=== PATIENT | female | born 1950 | race Caucasian/White ===

== ENCOUNTER 2017-10-23 00:43 | Emergency (ER) | payer MEDICAID, MEDICARE ==
--- NOTE | 2017-10-23 00:49 | EDM.PDOC ---
ED HPI GENERAL MEDICAL PROBLEM - General Chief Complaint: Skin Complaint Stated Complaint: RASH Time Seen by Provider: 10/23/17 00:45 - History of Present Illness INITIAL COMMENTS - FREE TEXT/NARRATIVE: HISTORY AND PHYSICAL: History of present illness: Patient's a 67-year-old female presents with a rash she states is been worse over the last several days it is somewhat pruritic she denies any tongue or lip swelling shortness of breath or other concern Review of systems: As per history of present illness and below otherwise all systems reviewed and negative. Past medical history: As per history of present illness and as reviewed below otherwise noncontributory. Surgical history: As per history of present illness and as reviewed below otherwise noncontributory. Social history: No reported history of drug or alcohol abuse. Family history: As per history of present illness and as reviewed below otherwise noncontributory. Physical exam: HEENT: Atraumatic, normocephalic, pupils reactive, negative for conjunctival pallor or scleral icterus, mucous membranes moist, throat clear, neck supple, nontender, trachea midline. Lungs: Clear to auscultation, breath sounds equal bilaterally, chest nontender. Heart: S1S2, regular, negative for clicks, rubs, or JVD. Abdomen: Soft, nondistended, nontender. Negative for masses or hepatosplenomegaly. Negative for costovertebral tenderness. Pelvis: Stable nontender. Genitourinary: Deferred. Rectal: Deferred. Extremities: Atraumatic, negative for cords or calf pain. Neurovascular unremarkable. Neuro: Awake, alert, oriented. Cranial nerves II through XII unremarkable. Cerebellum unremarkable. Motor and sensory unremarkable throughout. Exam nonfocal. Skin: Patient has a somewhat diffuse but sparse maculopapular rash is no vesicular lesions does jen no petechiae and is nontoxic in appearance Diagnostics: None Therapeutics: None Impression: #1 rash etiology to be determined Definitive disposition and diagnosis as appropriate pending reevaluation and review of above. - Related Data Allergies Allergy/AdvReac Type Severity Reaction Status Date / Time Sulfa (Sulfonamide Allergy Hives Verified 07/29/16 11:20 Antibiotics) Home Meds: Home Meds Ascorbic Acid [Vitamin C] 1 tab PO DAILY 07/29/16 [History] Multivitamin [Multivitamins] 1 tab PO DAILY 07/29/16 [History] Aspirin 81 mg PO BEDTIME #30 tab.chew 09/07/16 [Rx] Benzonatate [Tessalon Perles] 100 mg PO TID PRN #30 cap 09/07/16 [Rx] Magnesium Oxide 400 mg PO BID #30 tablet 09/07/16 [Rx] Naproxen [Naprosyn] 500 mg PO Q12HR PRN #30 tablet 09/07/16 [Rx] Past Medical History HEENT History: Reports: Allergic Rhinitis, Cataract Other HEENT History: wears glasses, has top denture and bottom partial Cardiovascular History: Reports: None Respiratory History: Reports: None Gastrointestinal History: Reports: None, Hepatitis Other Gastrointestinal History: hx hepatitis C Neurological History: Reports: None Psychiatric History: Reports: Anxiety, Depression Endocrine/Metabolic History: Reports: None Hematologic History: Reports: Blood Transfusion(s) Immunologic History: Reports: None Oncologic (Cancer) History: Reports: None - Infectious Disease History Infectious Disease History: Reports: Hepatitis C - Past Surgical History HEENT Surgical History: Reports: Adenoidectomy, Naso-Sinus Surgery, Tonsillectomy Male Surgical History: Reports: Other (See Below) Musculoskeletal Surgical History: Reports: Arthroscopic Knee, Shoulder Surgery Social & Family History - Family History Family Medical History: Noncontributory - Tobacco Use Smoking Status *Q: Current Every Day Smoker Years of Tobacco use: 45 Packs/Tins Daily: 2 - Caffeine Use Caffeine Use: Reports: Tea - Alcohol Use Days Per Week of Alcohol Use: 1 Number of Drinks Per Day: 1 Total Drinks Per Week: 1 - Recreational Drug Use Recreational Drug Use: No Drug Use in Last 12 Months: No ED ROS GENERAL - Review of Systems Review Of Systems: ROS reveals no pertinent complaints other than HPI. ED EXAM, SKIN/RASH Exam: See Below (See dictation) Departure - Departure Time of Disposition: 00:48 Disposition: Home, Self-Care 01 Condition: Good Clinical Impression: Rash and nonspecific skin eruption - Discharge Information Additional Instructions: The following information is given to patients seen in the emergency department who are being discharged to home. This information is to outline your options for follow-up care. We provide all patients seen in our emergency department with a follow-up referral. The need for follow-up, as well as the timing and circumstances, are variable depending upon the specifics of your emergency department visit. If you don't have a primary care physician on staff, we will provide you with a referral. We always advise you to contact your personal physician following an emergency department visit to inform them of the circumstance of the visit and for follow-up with them and/or the need for any referrals to a consulting specialist. The emergency department will also refer you to a specialist when appropriate. This referral assures that you have the opportunity for followup care with a specialist. All of these measure are taken in an effort to provide you with optimal care, which includes your followup. Under all circumstances we always encourage you to contact your private physician who remains a resource for coordinating your care. When calling for followup care, please make the office aware that this follow-up is from your recent emergency room visit. If for any reason you are refused follow-up, please contact the [facility] emergency department at and asked to speak to the emergency department charge nurse. Benadryl Medrol as prescribed follow-up primary medical doctor 1-2 days return as needed as discussed
[2017-10-23 00:57] VITALS: BP 146/86
== END 2017-10-23 01:04 | disposition home or self-care (01) ==
LOC: MW.ED 00:43
DX: R21 Rash and other nonspecific skin eruption (principal); F17.210 Nicotine dependence, cigarettes, uncomplicated; Z79.82 Long term (current) use of aspirin; Z79.899 Other long term (current) drug therapy; Z88.2 Allergy status to sulfonamides
CPT/HCPCS: 99282

== ENCOUNTER 2019-03-11 21:20 | Observation (INO) | payer MEDICARE, MEDICAID ==
[2019-03-11] MEDS: Sodium Chloride 0.9% 1,000 ML IV SCH (21:35)
[2019-03-11] MEDS ORDERED: Sodium Chloride 0.9% 2.5 ML Syringe FLUSH PRN (21:35)
[2019-03-11] MEDS ORDERED: Sodium Chloride 0.9% 10 ML Syringe FLUSH PRN (21:35)
[2019-03-11] MEDS ORDERED: Diltiazem 25 MG/5 ML SDV IVPUSH ONE ×2 (21:36→22:05)
--- NOTE | 2019-03-11 21:40 | EDM.PDOC ---
ED HPI GENERAL MEDICAL PROBLEM - General Chief Complaint: Cardiovascular Problem Stated Complaint: RACING HEART, DIZZY, SHORT OF BREATH Time Seen by Provider: 03/11/19 21:26 - History of Present Illness INITIAL COMMENTS - FREE TEXT/NARRATIVE: HISTORY AND PHYSICAL: History of present illness: The patient is a 68-year-old female who follows with Dr. Albrecht and our mathematical engineer Dr. Matamoros for a history of A. fib and is on Coumadin and diltiazem and presents with feeling like her heart was going faster than usual on and off yesterday and then today it has been going very fast since 12 noon. She says she has had dizziness and lightheadedness but she is not passing out or blacking out she has no chest pain shortness of breath nausea vomiting or abdominal pain. The patient says that on Thursday she didn't feel well and had vomiting and did not eat very much and since that time she has had not much of an appetite but has been eating small meals. She said that all day today she is mostly been drinking ice tea. She came in because she felt like her heart rate should be evaluated and because she felt lightheaded and dizzy. She has no neck or back pain no headache and no extremity complaints nor any weakness numbness or tingling to her extremities. She is concerned that her A. fib rate is elevated. The patient said that with the episodes yesterday and today's episode she was very sweaty. She currently is not sweaty and says she has no symptoms of dizziness or lightheaded while laying in bed and it is worse when she is up walking around. She does feel like her heart is going fast but it is not well Review of systems: As per history of present illness and below otherwise all systems reviewed and negative. Past medical history: As per history of present illness and as reviewed below otherwise noncontributory. Surgical history: As per history of present illness and as reviewed below otherwise noncontributory. Social history: No reported history of drug or alcohol abuse. Family history: As per history of present illness and as reviewed below otherwise noncontributory. Physical exam: General: Well-developed well-nourished thin female who is nontoxic and speaking clearly in the ED. She is in no distress and vital signs are noted by me HEENT: Atraumatic, normocephalic, pupils reactive, negative for conjunctival pallor or scleral icterus, mucous membranes moist, throat clear, neck supple, nontender, trachea midline. Lungs: Clear to auscultation, breath sounds equal bilaterally, chest nontender. Heart: S1S2, very tachycardic rate of my evaluation and irregularity noted and no overt murmur can be appreciated at this time Abdomen: Soft, nondistended, nontender. Negative for masses or hepatosplenomegaly. NABS Pelvis: Stable nontender. Genitourinary: Deferred. Rectal: Deferred. Extremities: Atraumatic, negative for cords or calf pain. Neurovascular unremarkable. No pedal edema or leg asymmetry Neuro: Awake, alert, oriented. Cranial nerves II through XII unremarkable. Cerebellum unremarkable. Motor and sensory unremarkable throughout. Exam nonfocal. Skin: Turgor is normal and there is no diaphoresis Diagnostics: EKG 2 CBC CMP INR troponin UA with reflex chest x-ray Therapeutics: IV O2 monitor IV fluids Cardizem IV push Lopressor, Cardizem drip After Lopressor the patient's heart rate did bounce down to 140s and the Cardizem drip was started. On my personal evaluation the rate is varying from 90s to 140s and the patient is awake alert and interactive here without any symptomatology. 2258: Case was discussed with Dr. Vincent who is aware of testing results and the INR of 14. He is also aware of the variable response to the Cardizem drip and agrees to admission and would like an observation in the ICU. I discussed this with the patient and she is agreeable Impression: A. fib with RVR, Coumadin toxicity Definitive disposition and diagnosis as appropriate pending reevaluation and review of above. - Related Data Allergies Allergy/AdvReac Type Severity Reaction Status Date / Time Sulfa (Sulfonamide Allergy Hives Verified 03/11/19 21:23 Antibiotics) Home Meds: Home Meds Ascorbic Acid [Vitamin C] 1 tab PO DAILY 07/29/16 [History] Multivitamin [Multivitamins] 1 tab PO DAILY 07/29/16 [History] Benzonatate [Tessalon Perles] 100 mg PO TID PRN #30 cap 09/07/16 [Rx] Magnesium Oxide 400 mg PO BID #30 tablet 09/07/16 [Rx] Diltiazem HCl [Diltiazem 24Hr ER] 120 mg PO DAILY 03/11/19 [History] Glycopyrrolate/Formoterol Fum [Bevespi Aerosphere Inhaler] 10.7 gm INH DAILY [History] Warfarin [Coumadin] 5 mg PO DAILY 03/11/19 [History] Past Medical History HEENT History: Reports: Allergic Rhinitis, Cataract Other HEENT History: wears glasses, has top denture and bottom partial Cardiovascular History: Reports: Afib Respiratory History: Reports: None Gastrointestinal History: Reports: None, Hepatitis Other Gastrointestinal History: hx hepatitis C Genitourinary History: Reports: None Musculoskeletal History: Reports: None Neurological History: Reports: None Psychiatric History: Reports: Anxiety, Depression Endocrine/Metabolic History: Reports: None Hematologic History: Reports: Blood Transfusion(s) Immunologic History: Reports: None Oncologic (Cancer) History: Reports: None Dermatologic History: Reports: None - Infectious Disease History Infectious Disease History: Reports: Hepatitis C - Past Surgical History Head Surgeries/Procedures: Reports: None HEENT Surgical History: Reports: Adenoidectomy, Naso-Sinus Surgery, Tonsillectomy Other Female Surgeries/Procedures: states she had her "ureters stretched" as a child Musculoskeletal Surgical History: Reports: Arthroscopic Knee, Shoulder Surgery Social & Family History - Family History Family Medical History: Noncontributory - Tobacco Use Smoking Status *Q: Current Every Day Smoker Years of Tobacco use: 30 Packs/Tins Daily: 1 - Caffeine Use Caffeine Use: Reports: Tea - Recreational Drug Use Recreational Drug Use: Yes Recreational Drug Type: Reports: Marijuana/Hashish Recreational Drug Use Frequency: Weekly ED ROS GENERAL - Review of Systems Review Of Systems: ROS reveals no pertinent complaints other than HPI. ED EXAM, GENERAL - Physical Exam Exam: See Below (See dictation) Course - Vital Signs Last Recorded V/S: Last Vital Signs Temp 36.4 C 03/11/19 22:33 Pulse 162 H 03/11/19 22:47 Resp 20 03/11/19 21:28 BP 90/60 03/11/19 22:47 Pulse Ox 97 03/11/19 22:47 - Orders/Labs/Meds Orders: Active Orders 24 hr Category Date Time Status Patient Status [ADT] Stat ADT 03/11/19 22:59 Ordered Blood Glucose Check, Bedside [RC] ONETIME Care 03/11/19 21:34 Active Cardiac Monitoring [RC] . DIRECTED Care 03/11/19 21:34 Active EKG Documentation Completion [RC] STAT Care 03/11/19 21:34 Active Oxygen Therapy, ED [RC] ASDIRECTED Care 03/11/19 21:34 Active Pulse Oximetry [RC] ASDIRECTED Care 03/11/19 21:34 Active UA RFX NATHANIEL AND CULT IF INDIC [URIN] Stat Lab 03/11/19 21:35 Ordered Diltiazem [Cardizem] 100 mg Med 03/11/19 22:30 Active Sodium Chloride 0.9% [Normal Saline] 100 ml IV CONTINUOUS Sodium Chloride 0.9% [Normal Saline] 1,000 ml Med 03/11/19 21:45 Active IV ASDIRECTED Sodium Chloride 0.9% [Saline Flush] Med 03/11/19 21:35 Active 10 ml FLUSH ASDIRECTED PRN Sodium Chloride 0.9% [Saline Flush] Med 03/11/19 21:35 Active 2.5 ml FLUSH ASDIRECTED PRN Saline Lock Insert [OM.PC] Stat Oth 03/11/19 21:34 Ordered Medication Orders Sodium Chloride (Normal Saline) 1,000 mls @ 75 mls/hr IV ASDIRECTED JASON Last Infusion: 03/11/19 22:47 Dose: 200 mls/hr Infusion: 03/11/19 21:59 Dose: 75 mls/hr Admin: 03/11/19 21:35 Dose: 500 mls/hr Diltiazem HCl 100 mg/ Sodium (Chloride) 100 mls @ 5 mls/hr IV CONTINUOUS JASON Last Admin: 03/11/19 22:32 Dose: 5 mls/hr Sodium Chloride (Saline Flush) 10 ml FLUSH ASDIRECTED PRN PRN Reason: Keep Vein Open Last Admin: 03/11/19 21:55 Dose: 10 ml Sodium Chloride (Saline Flush) 2.5 ml FLUSH ASDIRECTED PRN PRN Reason: Keep Vein Open Last Admin: 03/11/19 21:55 Dose: 2.5 ml Labs: Laboratory Tests 03/11/19 03/11/19 03/11/19 Range/Units 21:35 21:35 21:39 WBC 10.70 (4.0-11.0) K/uL RBC 4.76 (4.30-5.90) M/uL Hgb 14.3 (12.0-16.0) g/dL Hct 42.0 (36.0-46.0) % MCV 88.2 (80.0-98.0) fL MCH 30.0 (27.0-32.0) pg MCHC 34.0 (31.0-37.0) g/dL RDW Std Deviation 49.6 (28.0-62.0) fl RDW Coeff of Nilay 16 H (11.0-15.0) % Plt Count 183 (150-400) K/uL MPV 9.90 (7.40-12.00) fL Neut % (Auto) 61.2 (48.0-80.0) % Lymph % (Auto) 28.4 (16.0-40.0) % Andrew % (Auto) 7.9 (0.0-15.0) % Eos % (Auto) 2.0 (0.0-7.0) % Baso % (Auto) 0.5 (0.0-1.5) % Neut # (Auto) 6.6 H (1.4-5.7) K/uL Lymph # (Auto) 3.0 H (0.6-2.4) K/uL Andrew # (Auto) 0.8 (0.0-0.8) K/uL Eos # (Auto) 0.2 (0.0-0.7) K/uL Baso # (Auto) 0.1 (0.0-0.1) K/uL Nucleated RBC % 0.0 /100WBC Nucleated RBCs # 0 K/uL INR Sodium 133 L (136-145) mmol/L Potassium 3.0 L (3.5-5.1) mmol/L Chloride 93 L (98-107) mmol/L Carbon Dioxide 29.3 (21.0-32.0) mmol/L BUN 19 H (7.0-18.0) mg/dL Creatinine 1.2 H (0.6-1.0) mg/dL Est Cr Clr Drug Dosing TNP Estimated GFR (MDRD) 44.9 ml/min Glucose 124 H (74-106) mg/dL POC Glucose 135 H (60-110) mg/dL Calcium 10.0 (8.5-10.1) mg/dL Total Bilirubin 0.5 (0.2-1.0) mg/dL AST 57 H (15-37) IU/L ALT 37 (14-63) IU/L Alkaline Phosphatase 89 (46-116) U/L Troponin I < 0.050 (0.000-0.056) ng/mL Total Protein 7.2 (6.4-8.2) g/dL Albumin 3.5 (3.4-5.0) g/dL Globulin 3.7 (2.6-4.0) g/dL Albumin/Globulin Ratio 0.9 (0.9-1.6) 03/11/19 Range/Units 21:55 WBC (4.0-11.0) K/uL RBC (4.30-5.90) M/uL Hgb (12.0-16.0) g/dL Hct (36.0-46.0) % MCV (80.0-98.0) fL MCH (27.0-32.0) pg MCHC (31.0-37.0) g/dL RDW Std Deviation (28.0-62.0) fl RDW Coeff of Nilay (11.0-15.0) % Plt Count (150-400) K/uL MPV (7.40-12.00) fL Neut % (Auto) (48.0-80.0) % Lymph % (Auto) (16.0-40.0) % Andrew % (Auto) (0.0-15.0) % Eos % (Auto) (0.0-7.0) % Baso % (Auto) (0.0-1.5) % Neut # (Auto) (1.4-5.7) K/uL Lymph # (Auto) (0.6-2.4) K/uL Andrew # (Auto) (0.0-0.8) K/uL Eos # (Auto) (0.0-0.7) K/uL Baso # (Auto) (0.0-0.1) K/uL Nucleated RBC % /100WBC Nucleated RBCs # K/uL INR 14.13 H* Sodium (136-145) mmol/L Potassium (3.5-5.1) mmol/L Chloride (98-107) mmol/L Carbon Dioxide (21.0-32.0) mmol/L BUN (7.0-18.0) mg/dL Creatinine (0.6-1.0) mg/dL Est Cr Clr Drug Dosing Estimated GFR (MDRD) ml/min Glucose (74-106) mg/dL POC Glucose (60-110) mg/dL Calcium (8.5-10.1) mg/dL Total Bilirubin (0.2-1.0) mg/dL AST (15-37) IU/L ALT (14-63) IU/L Alkaline Phosphatase (46-116) U/L Troponin I (0.000-0.056) ng/mL Total Protein (6.4-8.2) g/dL Albumin (3.4-5.0) g/dL Globulin (2.6-4.0) g/dL Albumin/Globulin Ratio (0.9-1.6) Meds: Medications Generic Name Dose Route Start Last Admin Trade Name Freq PRN Reason Stop Dose Admin Sodium Chloride 1,000 mls @ 75 mls/hr 03/11/19 21:45 03/11/19 22:47 Normal Saline IV 200 mls/hr ASDIRECTED JASON Infusion Diltiazem HCl 100 mg/ Sodium 100 mls @ 5 mls/hr 03/11/19 22:30 03/11/19 22:32 Chloride IV 5 mls/hr CONTINUOUS JASON Administration Sodium Chloride 10 ml 03/11/19 21:35 03/11/19 21:55 Saline Flush FLUSH 10 ml ASDIRECTED PRN Administration Keep Vein Open Sodium Chloride 2.5 ml 03/11/19 21:35 03/11/19 21:55 Saline Flush FLUSH 2.5 ml ASDIRECTED PRN Administration Keep Vein Open Discontinued Medications Generic Name Dose Route Start Last Admin Trade Name Freq PRN Reason Stop Dose Admin Diltiazem HCl 10 mg 03/11/19 21:36 03/11/19 21:53 Diltiazem IVPUSH 03/11/19 21:37 10 mg ONETIME ONE Administration Diltiazem HCl 10 mg 03/11/19 22:05 03/11/19 22:06 Diltiazem IVPUSH 03/11/19 22:06 10 mg ONETIME ONE Administration Diltiazem HCl 125 mg/ Sodium 125 mls @ 5 mls/hr 03/11/19 22:15 Chloride IV NOW JASON Protocol Sodium Chloride Confirm 03/11/19 22:25 03/11/19 22:32 Normal Saline Administered 03/11/19 22:26 Not Given Dose 100 mls @ as directed .ROUTE .STK-MED ONE Metoprolol Tartrate 5 mg 03/11/19 22:18 03/11/19 22:22 Lopressor IVPUSH 03/11/19 22:19 5 mg ONETIME ONE Administration Potassium Chloride 40 meq 03/11/19 22:15 03/11/19 22:22 Klor-Con M20 PO 03/11/19 22:16 40 meq ONETIME ONE Administration Departure - Departure Time of Disposition: 23:01 Disposition: Refer to Observation Reason for Transfer *Q: Primary PCI Indicated Condition: Good Clinical Impression: Atrial fibrillation with RVR Coumadin toxicity Qualifiers: Encounter type: initial encounter Injury intent: accidental or unintentional Qualified Code(s): T45.511A - Poisoning by anticoagulants, accidental ( unintentional), initial encounter Referrals: PCP,Unknown [Primary Care Provider] - Forms: ED Department Discharge - My Orders Last 24 Hours: My Active Orders 03/11/19 21:34 Blood Glucose Check, Bedside [RC] ONETIME Cardiac Monitoring [RC] . DIRECTED EKG Documentation Completion [RC] STAT Oxygen Therapy, ED [RC] ASDIRECTED Pulse Oximetry [RC] ASDIRECTED Saline Lock Insert [OM.PC] Stat 03/11/19 21:35 UA RFX NATHANIEL AND CULT IF INDIC [URIN] Stat Sodium Chloride 0.9% [Saline Flush] 10 ml FLUSH ASDIRECTED PRN Sodium Chloride 0.9% [Saline Flush] 2.5 ml FLUSH ASDIRECTED PRN 03/11/19 21:45 Sodium Chloride 0.9% [Normal Saline] 1,000 ml IV ASDIRECTED 03/11/19 22:30 Diltiazem [Cardizem] 100 mg Sodium Chloride 0.9% [Normal Saline] 100 ml IV CONTINUOUS 03/11/19 22:59 Patient Status [ADT] Stat - Assessment/Plan Last 24 Hours: My Active Orders 03/11/19 21:34 Blood Glucose Check, Bedside [RC] ONETIME Cardiac Monitoring [RC] . DIRECTED EKG Documentation Completion [RC] STAT Oxygen Therapy, ED [RC] ASDIRECTED Pulse Oximetry [RC] ASDIRECTED Saline Lock Insert [OM.PC] Stat 03/11/19 21:35 UA RFX NATHANIEL AND CULT IF INDIC [URIN] Stat Sodium Chloride 0.9% [Saline Flush] 10 ml FLUSH ASDIRECTED PRN Sodium Chloride 0.9% [Saline Flush] 2.5 ml FLUSH ASDIRECTED PRN 03/11/19 21:45 Sodium Chloride 0.9% [Normal Saline] 1,000 ml IV ASDIRECTED 03/11/19 22:30 Diltiazem [Cardizem] 100 mg Sodium Chloride 0.9% [Normal Saline] 100 ml IV CONTINUOUS 03/11/19 22:59 Patient Status [ADT] Stat
--- NOTE | 2019-03-11 22:02 | CR ---
INDICATION: pain, SOB, heart racing TECHNIQUE: Chest 1 view. COMPARISON: None. FINDINGS: Cardiovascular and mediastinum: Heart size and vasculature are normal in caliber and appearance. Mediastinum is within normal limits. Lungs and pleural space: Lungs are clear. No sign of infiltrate or mass. No sign of pleural effusion. No pneumothorax. Bones and soft tissues: No significant findings. IMPRESSION: Unremarkable chest. Dictated by: Farhan Bonilla MD @ 03/11/2019 22:00:03 (Electronically Signed)
[2019-03-11 22:06] LABS: CHLORIDE,CL 93 mmol/L (98-107); SODIUM,NA 133 mmol/L (136-145)
[2019-03-11] MEDS ORDERED: Potassium Chloride 20 MEQ Tab.ER PO ONE (22:15)
[2019-03-11] MEDS ORDERED: Diltiazem 125 MG in Sodium Chloride 0.9% 100 ML IV SCH (22:15)
[2019-03-11] MEDS ORDERED: Metoprolol Tartrate 5 MG/5 ML SDV IVPUSH ONE (22:18)
[2019-03-11] MEDS ORDERED: Sodium Chloride 0.9% 100 ML ONE (22:25)
[2019-03-11] MEDS ORDERED: Diltiazem 100 MG in Sodium Chloride 0.9% 100 ML IV SCH (22:30)
[2019-03-12] MEDS ORDERED: Magnesium Sulfate/Water 2 GM in Premix Bag 1 BAG IV ONE (00:36)
[2019-03-12] MEDS: Sodium Chloride 0.9% 1,000 ML IV SCH ×3 (00:40→13:24)
--- NOTE | 2019-03-12 01:27 | PCM.HP ---
H&P History of Present Illness - General Date of Service: 03/12/19 Admit Problem/Dx: Admission Diagnosis/Problem Admission Diagnosis/Problem Atrial fibrillation Source of Information: Patient History Limitations: Reports: No Limitations - History of Present Illness Initial Comments - Free Text/Narative: The patient is a 68-year-old lady who had presented to the emergency department this evening secondary to dizziness, weakness and fatigue. The patient says that she felt like her heart rate was going very fast. She took it at home and noticed that her heart rate was 170 bpm. The patient has been on diltiazem and Coumadin for her atrial fibrillation and has been evaluated by cardiology in the past. The patient says that she has had 2 days worth of nausea and vomiting and has not been able to keep most of her medications down. She reports that she also has not been eating regularly. She has described some chest discomfort which does not radiate. Patient also says that she had an episode of diaphoresis. It was noted in the emergency department of the patient's INR was greater than 14. The patient has no other complaints at this time of the dizziness and lightheadedness when she sets up. Onset of Symptoms: Reports: Gradual Duration of Symptoms: Reports: Day(s):, Getting Worse Location: Reports: Chest Quality: Reports: Dull, Pressure Severity: Mild Improves with: Reports: Rest Worsens with: Reports: Movement Associated Symptoms: Reports: Diaphoresis - Related Data Allergies/Adverse Reactions: Allergies Allergy/AdvReac Type Severity Reaction Status Date / Time Sulfa (Sulfonamide Allergy Hives Verified 03/11/19 21:23 Antibiotics) Home Medications: Home Meds Ascorbic Acid [Vitamin C] 1 tab PO DAILY 07/29/16 [History] Multivitamin [Multivitamins] 1 tab PO DAILY 07/29/16 [History] Benzonatate [Tessalon Perles] 100 mg PO TID PRN #30 cap 09/07/16 [Rx] Magnesium Oxide 400 mg PO BID #30 tablet 09/07/16 [Rx] Diltiazem HCl [Diltiazem 24Hr ER] 120 mg PO DAILY 03/11/19 [History] Glycopyrrolate/Formoterol Fum [Bevespi Aerosphere Inhaler] 10.7 gm INH DAILY [History] Warfarin [Coumadin] 5 mg PO DAILY 03/11/19 [History] Past Medical History HEENT History: Reports: Allergic Rhinitis, Cataract Other HEENT History: wears glasses, has top denture and bottom partial Cardiovascular History: Reports: Afib Respiratory History: Reports: None, Other (See Below) 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 Gastrointestinal History: Reports: Hepatitis Other Gastrointestinal History: hx hepatitis C Genitourinary History: Reports: None Musculoskeletal History: Reports: None Neurological History: Reports: None Psychiatric History: Reports: Anxiety, Depression Endocrine/Metabolic History: Reports: None Hematologic History: Reports: Blood Transfusion(s) Immunologic History: Reports: None Oncologic (Cancer) History: Reports: None Dermatologic History: Reports: None - Infectious Disease History Infectious Disease History: Reports: Hepatitis C - Past Surgical History Head Surgeries/Procedures: Reports: None HEENT Surgical History: Reports: Adenoidectomy, Naso-Sinus Surgery, Tonsillectomy Other Female Surgeries/Procedures: states she had her "ureters stretched" as a child Musculoskeletal Surgical History: Reports: Arthroscopic Knee, Shoulder Surgery Social & Family History - Family History Family Medical History: Noncontributory - Tobacco Use Smoking Status *Q: Current Every Day Smoker Years of Tobacco use: 51 Packs/Tins Daily: 1 Used Tobacco, but Quit: No Second Hand Smoke Exposure: Yes - Caffeine Use Caffeine Use: Reports: Soda - Alcohol Use Date of Last Drink: 03/07/19 - Recreational Drug Use Recreational Drug Use: No Recreational Drug Type: Reports: Marijuana/Hashish Recreational Drug Use Frequency: Weekly H&P Review of Systems - Review of Systems: Review Of Systems: See Below General: Reports: Weakness, Diaphoresis HEENT: Reports: No Symptoms Pulmonary: Reports: No Symptoms Cardiovascular: Reports: Palpitations, Lightheadedness, Blood Pressure Problem, Other (Rapid heart rate) Gastrointestinal: Reports: No Symptoms Genitourinary: Reports: No Symptoms Musculoskeletal: Reports: No Symptoms Skin: Reports: No Symptoms Psychiatric: Reports: No Symptoms Neurological: Reports: No Symptoms Hematologic/Lymphatic: Reports: No Symptoms Immunologic: Reports: No Symptoms Exam - Exam Exam: See Below - Vital Signs Vital Signs: Last Vital Signs Temp 36.6 C 03/11/19 23:45 Pulse 89 03/11/19 23:17 Resp 18 03/12/19 01:00 BP 101/53 L 03/12/19 01:00 Pulse Ox 98 03/12/19 01:00 Weight: 61.87 kg - Exam Quality Assessment: No: Supplemental Oxygen General: Alert, Oriented, Cooperative, Mild Distress HEENT: Conjunctiva Clear, EACs Clear, EOMI, Pupils Equal, PERRLA. No: Mucosa Moist & [place] (Dry) Neck: Supple, Trachea Midline Lungs: Clear to Auscultation Cardiovascular: Irregular Rhythm, Tachycardia (134 on monitor) GI/Abdominal Exam: Normal Bowel Sounds, Soft, Non-Tender, No Distention. No: Guarding, Rigid, Rebound Back Exam: Normal Inspection, Full Range of Motion Extremities: Normal Inspection, No Pedal Edema Skin: Warm, Dry, Intact Neurological: Cranial Nerves Intact Neuro Extensive - Mental Status: Alert, Oriented x3 Psychiatric: Alert, Normal Affect, Normal Mood - Patient Data Lab Results Last 24 hrs: Laboratory Results - last 24 hr 03/11/19 03/11/19 03/11/19 Range/Units 21:35 21:35 21:39 WBC 10.70 (4.0-11.0) K/uL RBC 4.76 (4.30-5.90) M/uL Hgb 14.3 (12.0-16.0) g/dL Hct 42.0 (36.0-46.0) % MCV 88.2 (80.0-98.0) fL MCH 30.0 (27.0-32.0) pg MCHC 34.0 (31.0-37.0) g/dL RDW Std Deviation 49.6 (28.0-62.0) fl RDW Coeff of Nilay 16 H (11.0-15.0) % Plt Count 183 (150-400) K/uL MPV 9.90 (7.40-12.00) fL Neut % (Auto) 61.2 (48.0-80.0) % Lymph % (Auto) 28.4 (16.0-40.0) % Holmes % (Auto) 7.9 (0.0-15.0) % Eos % (Auto) 2.0 (0.0-7.0) % Baso % (Auto) 0.5 (0.0-1.5) % Neut # (Auto) 6.6 H (1.4-5.7) K/uL Lymph # (Auto) 3.0 H (0.6-2.4) K/uL Holmes # (Auto) 0.8 (0.0-0.8) K/uL Eos # (Auto) 0.2 (0.0-0.7) K/uL Baso # (Auto) 0.1 (0.0-0.1) K/uL Nucleated RBC % 0.0 /100WBC Nucleated RBCs # 0 K/uL INR Sodium 133 L (136-145) mmol/L Potassium 3.0 L (3.5-5.1) mmol/L Chloride 93 L (98-107) mmol/L Carbon Dioxide 29.3 (21.0-32.0) mmol/L BUN 19 H (7.0-18.0) mg/dL Creatinine 1.2 H (0.6-1.0) mg/dL Est Cr Clr Drug Dosing TNP Estimated GFR (MDRD) 44.9 ml/min Glucose 124 H (74-106) mg/dL POC Glucose 135 H (60-110) mg/dL Calcium 10.0 (8.5-10.1) mg/dL Total Bilirubin 0.5 (0.2-1.0) mg/dL AST 57 H (15-37) IU/L ALT 37 (14-63) IU/L Alkaline Phosphatase 89 (46-116) U/L Troponin I < 0.050 (0.000-0.056) ng/mL Total Protein 7.2 (6.4-8.2) g/dL Albumin 3.5 (3.4-5.0) g/dL Globulin 3.7 (2.6-4.0) g/dL Albumin/Globulin Ratio 0.9 (0.9-1.6) 03/11/19 Range/Units 21:55 WBC (4.0-11.0) K/uL RBC (4.30-5.90) M/uL Hgb (12.0-16.0) g/dL Hct (36.0-46.0) % MCV (80.0-98.0) fL MCH (27.0-32.0) pg MCHC (31.0-37.0) g/dL RDW Std Deviation (28.0-62.0) fl RDW Coeff of Nilay (11.0-15.0) % Plt Count (150-400) K/uL MPV (7.40-12.00) fL Neut % (Auto) (48.0-80.0) % Lymph % (Auto) (16.0-40.0) % Holmes % (Auto) (0.0-15.0) % Eos % (Auto) (0.0-7.0) % Baso % (Auto) (0.0-1.5) % Neut # (Auto) (1.4-5.7) K/uL Lymph # (Auto) (0.6-2.4) K/uL Holmes # (Auto) (0.0-0.8) K/uL Eos # (Auto) (0.0-0.7) K/uL Baso # (Auto) (0.0-0.1) K/uL Nucleated RBC % /100WBC Nucleated RBCs # K/uL INR 14.13 H* Sodium (136-145) mmol/L Potassium (3.5-5.1) mmol/L Chloride (98-107) mmol/L Carbon Dioxide (21.0-32.0) mmol/L BUN (7.0-18.0) mg/dL Creatinine (0.6-1.0) mg/dL Est Cr Clr Drug Dosing Estimated GFR (MDRD) ml/min Glucose (74-106) mg/dL POC Glucose (60-110) mg/dL Calcium (8.5-10.1) mg/dL Total Bilirubin (0.2-1.0) mg/dL AST (15-37) IU/L ALT (14-63) IU/L Alkaline Phosphatase (46-116) U/L Troponin I (0.000-0.056) ng/mL Total Protein (6.4-8.2) g/dL Albumin (3.4-5.0) g/dL Globulin (2.6-4.0) g/dL Albumin/Globulin Ratio (0.9-1.6) Result Diagrams: 03/11/19 21:35 03/11/19 21:35 - Problem List (1) Atrial fibrillation with RVR SNOMED Code(s): 259593044059408 ICD Code: I48.91 - UNSPECIFIED ATRIAL FIBRILLATION Status: Chronic Priority: High Current Visit: Yes Problem Details: With RVR (2) Coumadin toxicity SNOMED Code(s): 06161948 ICD Code: T45.511A - POISONING BY ANTICOAGULANTS, ACCIDENTAL, INIT Status: Acute Priority: High Current Visit: Yes Qualifiers: Encounter type: subsequent encounter Injury intent: accidental or unintentional Qualified Code(s): T45.511D - Poisoning by anticoagulants, accidental (unintentional), subsequent encounter (3) Nausea and vomiting SNOMED Code(s): 24398933 ICD Code: R11.2 - NAUSEA WITH VOMITING, UNSPECIFIED Status: Acute Priority: High Current Visit: Yes Qualifiers: Vomiting type: unspecified Vomiting Intractability: non-intractable Qualified Code(s): R11.2 - Nausea with vomiting, unspecified (4) Dehydration SNOMED Code(s): 10243267 ICD Code: E86.0 - DEHYDRATION Status: Acute Priority: High Current Visit: Yes Problem List Initiated/Reviewed/Updated: Yes Orders Last 24hrs: Active Orders 24 hr Category Date Time Status Patient Status [ADT] Stat ADT 03/11/19 22:59 Active Pulse Oximetry [RC] ASDIRECTED Care 03/11/19 21:34 Active BASIC METABOLIC PANEL,BMP [CHEM] Routine Lab 03/12/19 05:00 Ordered CBC W/O DIFF,HEMOGRAM [HEME] Routine Lab 03/12/19 05:00 Ordered INR,PT,PROTHROMBIN TIME [COAG] Routine Lab 03/12/19 05:00 Ordered UA RFX NATHANIEL AND CULT IF INDIC [URIN] Stat Lab 03/11/19 21:35 Ordered Diltiazem [Cardizem] 100 mg Med 03/11/19 22:30 Active Sodium Chloride 0.9% [Normal Saline] 100 ml IV CONTINUOUS Magnesium Sulfate/Water [Magnesium Sulfate in Water Med 03/12/19 00:36 Active Premix] 2 gm Premix Bag 1 bag IV ONETIME Sodium Chloride 0.9% [Normal Saline] 1,000 ml Med 03/11/19 21:45 Active IV ASDIRECTED Sodium Chloride 0.9% [Saline Flush] Med 03/11/19 21:35 Active 10 ml FLUSH ASDIRECTED PRN Sodium Chloride 0.9% [Saline Flush] Med 03/11/19 21:35 Active 2.5 ml FLUSH ASDIRECTED PRN Saline Lock Insert [OM.PC] Stat Oth 03/11/19 21:34 Ordered Medication Orders Sodium Chloride (Normal Saline) 1,000 mls @ 75 mls/hr IV ASDIRECTED JASON Last Admin: 03/12/19 00:40 Dose: 75 mls/hr Infusion: 03/12/19 00:40 Dose: 75 mls/hr Infusion: 03/11/19 23:17 Dose: 75 mls/hr Infusion: 03/11/19 22:47 Dose: 200 mls/hr Infusion: 03/11/19 21:59 Dose: 75 mls/hr Admin: 03/11/19 21:35 Dose: 500 mls/hr Diltiazem HCl 100 mg/ Sodium (Chloride) 100 mls @ 5 mls/hr IV CONTINUOUS JASON Last Infusion: 03/12/19 01:04 Dose: 2.5 mls/hr Infusion: 03/12/19 00:32 Dose: 0 mls/hr Admin: 03/11/19 22:32 Dose: 5 mls/hr Magnesium Sulfate 2 gm/ Premix 50 mls @ 50 mls/hr IV ONETIME ONE Stop: 03/12/19 01:35 Last Admin: 03/12/19 01:14 Dose: 50 mls/hr Sodium Chloride (Saline Flush) 10 ml FLUSH ASDIRECTED PRN PRN Reason: Keep Vein Open Last Admin: 03/11/19 21:55 Dose: 10 ml Sodium Chloride (Saline Flush) 2.5 ml FLUSH ASDIRECTED PRN PRN Reason: Keep Vein Open Last Admin: 03/11/19 21:55 Dose: 2.5 ml Assessment/Plan Comment:: The patient is a 68-year-old lady who presented to the emergency department primarily out of concern for dizziness and lightheadedness. She was noted to be in atrial fibrillation with RVR and had been placed in intensive care unit as inpatient secondary to Cardizem drip. She is also being co-managed by eICU. The patient did had some preceding nausea and vomiting which was likely the cause of her inability to maintain her medications and resulting in A. fib with RVR. The patient will be kept on Cardizem drip and her blood pressure will be monitored on telemetry. The patient will also have IV fluids as necessary for her dehydration. Her nausea and vomiting will be controlled with the use of Zofran. Because of the patient's chest pain I've ordered 2 more troponins. I've also ordered follow-up laboratory studies for the morning. The patient's warfarin will also be held as her INR is supratherapeutic and she does not have any urgent need for reversal of her INR at this time. The patient's INR will will be allowed to normalize slowly for now. If she does have evidence of bleeding been the INR will be reversed. She has been kept on a heart healthy diet. SCDs of also been ordered for the patient for DVT prophylaxis although DVT in her case is not likely to occur. She should be appropriate for discharge in 1-2 days.
[2019-03-12] MEDS ORDERED: Bismuth Subsalicylate 262 MG/15 ML Susp 236 ML Bottle PO ONE (02:21)
[2019-03-12] MEDS ORDERED: Lactated Ringers 1,000 ML IV ONE (04:34)
[2019-03-12 04:37] LABS: CHLORIDE,CL 101 mmol/L (98-107); SODIUM,NA 137 mmol/L (136-145)
--- NOTE | 2019-03-12 06:48 | PCM.PN ---
- General Info Date of Service: 03/12/19 Admission Dx/Problem (Free Text): Admission Diagnosis/Problem Admission Diagnosis/Problem Atrial fibrillation Subjective Update: The patient is a 68-year-old lady who was admitted to intensive care unit several hours ago secondary to dizziness, weakness and fatigue. The patient was noted to have atrial fibrillation with RVR. The patient has been on Cardizem drip and her heart rate had various times has been between 170 and 110. Functional Status: Reports: Pain Controlled - Review of Systems General: Reports: Weakness HEENT: Reports: No Symptoms Pulmonary: Reports: No Symptoms Cardiovascular: Reports: Palpitations Gastrointestinal: Reports: Nausea Genitourinary: Reports: No Symptoms Musculoskeletal: Reports: No Symptoms Skin: Reports: No Symptoms Neurological: Reports: No Symptoms Psychiatric: Reports: No Symptoms - Patient Data Vitals - Most Recent: Last Vital Signs Temp 36.1 C 03/12/19 04:00 Pulse 89 03/11/19 23:17 Resp 19 03/12/19 06:00 BP 92/68 03/12/19 06:00 Pulse Ox 96 03/12/19 06:00 Weight - Most Recent: 62.505 kg I&O - Last 24 Hours: Intake & Output 03/11/19 03/11/19 03/12/19 14:59 22:59 06:59 Intake Total 2054 Output Total 450 Balance 1604 Lab Results Last 24 Hours: Laboratory Results - last 24 hr 03/11/19 03/11/19 03/11/19 Range/Units 21:35 21:35 21:39 WBC 10.70 (4.0-11.0) K/uL RBC 4.76 (4.30-5.90) M/uL Hgb 14.3 (12.0-16.0) g/dL Hct 42.0 (36.0-46.0) % MCV 88.2 (80.0-98.0) fL MCH 30.0 (27.0-32.0) pg MCHC 34.0 (31.0-37.0) g/dL RDW Std Deviation 49.6 (28.0-62.0) fl RDW Coeff of Nilay 16 H (11.0-15.0) % Plt Count 183 (150-400) K/uL MPV 9.90 (7.40-12.00) fL Neut % (Auto) 61.2 (48.0-80.0) % Lymph % (Auto) 28.4 (16.0-40.0) % Craig % (Auto) 7.9 (0.0-15.0) % Eos % (Auto) 2.0 (0.0-7.0) % Baso % (Auto) 0.5 (0.0-1.5) % Neut # (Auto) 6.6 H (1.4-5.7) K/uL Lymph # (Auto) 3.0 H (0.6-2.4) K/uL Craig # (Auto) 0.8 (0.0-0.8) K/uL Eos # (Auto) 0.2 (0.0-0.7) K/uL Baso # (Auto) 0.1 (0.0-0.1) K/uL Nucleated RBC % 0.0 /100WBC Nucleated RBCs # 0 K/uL INR Sodium 133 L (136-145) mmol/L Potassium 3.0 L (3.5-5.1) mmol/L Chloride 93 L (98-107) mmol/L Carbon Dioxide 29.3 (21.0-32.0) mmol/L BUN 19 H (7.0-18.0) mg/dL Creatinine 1.2 H (0.6-1.0) mg/dL Est Cr Clr Drug Dosing TNP Estimated GFR (MDRD) 44.9 ml/min Glucose 124 H (74-106) mg/dL POC Glucose 135 H (60-110) mg/dL Calcium 10.0 (8.5-10.1) mg/dL Magnesium (1.8-2.4) mg/dL Total Bilirubin 0.5 (0.2-1.0) mg/dL AST 57 H (15-37) IU/L ALT 37 (14-63) IU/L Alkaline Phosphatase 89 (46-116) U/L Troponin I < 0.050 (0.000-0.056) ng/mL Total Protein 7.2 (6.4-8.2) g/dL Albumin 3.5 (3.4-5.0) g/dL Globulin 3.7 (2.6-4.0) g/dL Albumin/Globulin Ratio 0.9 (0.9-1.6) Urine Color Urine Appearance Urine pH (5.0-8.0) Ur Specific [place] (1.001-1.035) Urine Protein (NEGATIVE) mg/dL Urine Glucose (UA) (NEGATIVE) mg/dL Urine Ketones (NEGATIVE) mg/dL Urine Occult Blood (NEGATIVE) Urine Nitrite (NEGATIVE) Urine Bilirubin (NEGATIVE) Urine Urobilinogen (<2.0) EU/dL Ur Leukocyte Esterase (NEGATIVE) Urine RBC (0-2/HPF) Urine WBC (0-5/HPF) Ur Epithelial Cells (NONE-FEW) Urine Bacteria (NEGATIVE) Urine Mucus (NONE-MOD) 03/11/19 03/12/19 03/12/19 Range/Units 21:55 04:09 04:09 WBC 9.09 (4.0-11.0) K/uL RBC 4.17 L (4.30-5.90) M/uL Hgb 12.3 (12.0-16.0) g/dL Hct 37.2 (36.0-46.0) % MCV 89.2 (80.0-98.0) fL MCH 29.5 (27.0-32.0) pg MCHC 33.1 (31.0-37.0) g/dL RDW Std Deviation 50.5 (28.0-62.0) fl RDW Coeff of Nilay 16 H (11.0-15.0) % Plt Count 144 L (150-400) K/uL MPV 9.90 (7.40-12.00) fL Neut % (Auto) (48.0-80.0) % Lymph % (Auto) (16.0-40.0) % Craig % (Auto) (0.0-15.0) % Eos % (Auto) (0.0-7.0) % Baso % (Auto) (0.0-1.5) % Neut # (Auto) (1.4-5.7) K/uL Lymph # (Auto) (0.6-2.4) K/uL Craig # (Auto) (0.0-0.8) K/uL Eos # (Auto) (0.0-0.7) K/uL Baso # (Auto) (0.0-0.1) K/uL Nucleated RBC % 0.0 /100WBC Nucleated RBCs # 0 K/uL INR 14.13 H* Sodium 137 (136-145) mmol/L Potassium 4.3 (3.5-5.1) mmol/L Chloride 101 (98-107) mmol/L Carbon Dioxide 28.8 (21.0-32.0) mmol/L BUN 15 (7.0-18.0) mg/dL Creatinine 0.8 (0.6-1.0) mg/dL Est Cr Clr Drug Dosing 62.24 Estimated GFR (MDRD) > 60.0 ml/min Glucose 112 H (74-106) mg/dL POC Glucose (60-110) mg/dL Calcium 8.6 (8.5-10.1) mg/dL Magnesium 2.3 (1.8-2.4) mg/dL Total Bilirubin (0.2-1.0) mg/dL AST (15-37) IU/L ALT (14-63) IU/L Alkaline Phosphatase (46-116) U/L Troponin I (0.000-0.056) ng/mL Total Protein (6.4-8.2) g/dL Albumin (3.4-5.0) g/dL Globulin (2.6-4.0) g/dL Albumin/Globulin Ratio (0.9-1.6) Urine Color Urine Appearance Urine pH (5.0-8.0) Ur Specific [place] (1.001-1.035) Urine Protein (NEGATIVE) mg/dL Urine Glucose (UA) (NEGATIVE) mg/dL Urine Ketones (NEGATIVE) mg/dL Urine Occult Blood (NEGATIVE) Urine Nitrite (NEGATIVE) Urine Bilirubin (NEGATIVE) Urine Urobilinogen (<2.0) EU/dL Ur Leukocyte Esterase (NEGATIVE) Urine RBC (0-2/HPF) Urine WBC (0-5/HPF) Ur Epithelial Cells (NONE-FEW) Urine Bacteria (NEGATIVE) Urine Mucus (NONE-MOD) 03/12/19 03/12/19 03/12/19 Range/Units 04:09 04:09 04:10 WBC (4.0-11.0) K/uL RBC (4.30-5.90) M/uL Hgb (12.0-16.0) g/dL Hct (36.0-46.0) % MCV (80.0-98.0) fL MCH (27.0-32.0) pg MCHC (31.0-37.0) g/dL RDW Std Deviation (28.0-62.0) fl RDW Coeff of Nilay (11.0-15.0) % Plt Count (150-400) K/uL MPV (7.40-12.00) fL Neut % (Auto) (48.0-80.0) % Lymph % (Auto) (16.0-40.0) % Craig % (Auto) (0.0-15.0) % Eos % (Auto) (0.0-7.0) % Baso % (Auto) (0.0-1.5) % Neut # (Auto) (1.4-5.7) K/uL Lymph # (Auto) (0.6-2.4) K/uL Craig # (Auto) (0.0-0.8) K/uL Eos # (Auto) (0.0-0.7) K/uL Baso # (Auto) (0.0-0.1) K/uL Nucleated RBC % /100WBC Nucleated RBCs # K/uL INR 12.49 H* Sodium (136-145) mmol/L Potassium (3.5-5.1) mmol/L Chloride (98-107) mmol/L Carbon Dioxide (21.0-32.0) mmol/L BUN (7.0-18.0) mg/dL Creatinine (0.6-1.0) mg/dL Est Cr Clr Drug Dosing Estimated GFR (MDRD) ml/min Glucose (74-106) mg/dL POC Glucose (60-110) mg/dL Calcium (8.5-10.1) mg/dL Magnesium (1.8-2.4) mg/dL Total Bilirubin (0.2-1.0) mg/dL AST (15-37) IU/L ALT (14-63) IU/L Alkaline Phosphatase (46-116) U/L Troponin I < 0.050 (0.000-0.056) ng/mL Total Protein (6.4-8.2) g/dL Albumin (3.4-5.0) g/dL Globulin (2.6-4.0) g/dL Albumin/Globulin Ratio (0.9-1.6) Urine Color YELLOW Urine Appearance CLOUDY Urine pH 6.0 (5.0-8.0) Ur Specific [place] 1.010 (1.001-1.035) Urine Protein TRACE H (NEGATIVE) mg/dL Urine Glucose (UA) NEGATIVE (NEGATIVE) mg/dL Urine Ketones NEGATIVE (NEGATIVE) mg/dL Urine Occult Blood LARGE H (NEGATIVE) Urine Nitrite NEGATIVE (NEGATIVE) Urine Bilirubin NEGATIVE (NEGATIVE) Urine Urobilinogen 0.2 (<2.0) EU/dL Ur Leukocyte Esterase NEGATIVE (NEGATIVE) Urine RBC 75-80 (0-2/HPF) Urine WBC 0-1 (0-5/HPF) Ur Epithelial Cells RARE (NONE-FEW) Urine Bacteria RARE (NEGATIVE) Urine Mucus LIGHT (NONE-MOD) Med Orders - Current: Current Medications Acetaminophen (Tylenol) 650 mg PO Q4H PRN PRN Reason: Pain (Mild 1-3)/fever Diltiazem HCl (Cardizem Cd) 120 mg PO DAILY JASON Sodium Chloride (Normal Saline) 1,000 mls @ 75 mls/hr IV ASDIRECTED JASON Last Admin: 03/12/19 00:40 Dose: 75 mls/hr Diltiazem HCl 100 mg/ Sodium (Chloride) 100 mls @ 5 mls/hr IV CONTINUOUS JASON Last Infusion: 03/12/19 04:00 Dose: 2.5 mls/hr Lactated Ringer's (Ringers, Lactated) 1,000 mls @ 999 drops/hr IV .BOLUS ONE Stop: 03/12/19 19:34 Last Admin: 03/12/19 04:39 Dose: 999 drops/hr Magnesium Oxide (Magnesium Oxide) 400 mg PO BID JASON Non-Formulary Medication (Glycopyrrolate/Formoterol Fum [Bevespi Aerosphere Inhaler]) 10.7 gm INH DAILY JASON Oxycodone HCl (Oxycodone) 5 mg PO Q4H PRN PRN Reason: Pain (moderate 4-6) Sodium Chloride (Saline Flush) 10 ml FLUSH ASDIRECTED PRN PRN Reason: Keep Vein Open Last Admin: 03/11/19 21:55 Dose: 10 ml Sodium Chloride (Saline Flush) 2.5 ml FLUSH ASDIRECTED PRN PRN Reason: Keep Vein Open Last Admin: 03/11/19 21:55 Dose: 2.5 ml Discontinued Medications Bismuth Subsalicylate (Pepto Bismol) 30 ml PO ONETIME ONE Stop: 03/12/19 02:22 Last Admin: 03/12/19 02:34 Dose: 30 ml Diltiazem HCl (Diltiazem) 10 mg IVPUSH ONETIME ONE Stop: 03/11/19 21:37 Last Admin: 03/11/19 21:53 Dose: 10 mg Diltiazem HCl (Diltiazem) 10 mg IVPUSH ONETIME ONE Stop: 03/11/19 22:06 Last Admin: 03/11/19 22:06 Dose: 10 mg Diltiazem HCl 125 mg/ Sodium (Chloride) 125 mls @ 5 mls/hr IV NOW JASON; Protocol Sodium Chloride (Normal Saline) Confirm Administered Dose 100 mls @ as directed .ROUTE .STK-MED ONE Stop: 03/11/19 22:26 Last Admin: 03/11/19 22:32 Dose: Not Given Magnesium Sulfate 2 gm/ Premix 50 mls @ 50 mls/hr IV ONETIME ONE Stop: 03/12/19 01:35 Last Admin: 03/12/19 01:14 Dose: 50 mls/hr Metoprolol Tartrate (Lopressor) 5 mg IVPUSH ONETIME ONE Stop: 03/11/19 22:19 Last Admin: 03/11/19 22:22 Dose: 5 mg Potassium Chloride (Klor-Con M20) 40 meq PO ONETIME ONE Stop: 03/11/19 22:16 Last Admin: 03/11/19 22:22 Dose: 40 meq - Exam Quality Assessment: No: Supplemental Oxygen General: Alert, Oriented, Cooperative, No Acute Distress HEENT: Pupils Equal, Pupils Reactive, EOMI Neck: Supple, Trachea Midline Lungs: Clear to Auscultation, Normal Respiratory Effort Cardiovascular: Irregular Rhythm, Tachycardia. No: Murmurs, Gallops, Rubs GI/Abdominal Exam: Normal Bowel Sounds, Soft, No Distention Back Exam: Normal Inspection, Full Range of Motion Extremities: Normal Inspection, Normal Range of Motion, No Pedal Edema Skin: Warm, Dry, Intact Neurological: No New Focal Deficit Psy/Mental Status: Alert, Normal Affect - Problem List & Annotations (1) Atrial fibrillation with RVR SNOMED Code(s): 766868701601756 Code(s): I48.91 - UNSPECIFIED ATRIAL FIBRILLATION Status: Chronic Priority: High Current Visit: Yes Annotation/Comment:: With RVR (2) Coumadin toxicity SNOMED Code(s): 73259543 Code(s): T45.511A - POISONING BY ANTICOAGULANTS, ACCIDENTAL, INIT Status: Acute Priority: High Current Visit: Yes Qualifiers: Encounter type: subsequent encounter Injury intent: accidental or unintentional Qualified Code(s): T45.511D - Poisoning by anticoagulants, accidental (unintentional), subsequent encounter (3) Nausea and vomiting SNOMED Code(s): 75088635 Code(s): R11.2 - NAUSEA WITH VOMITING, UNSPECIFIED Status: Acute Priority : High Current Visit: Yes Qualifiers: Vomiting type: unspecified Vomiting Intractability: non-intractable Qualified Code(s): R11.2 - Nausea with vomiting, unspecified (4) Dehydration SNOMED Code(s): 57259993 Code(s): E86.0 - DEHYDRATION Status: Acute Priority: High Current Visit : Yes - Problem List Review Problem List Initiated/Reviewed/Updated: Yes - My Orders Last 24 Hours: My Active Orders 03/12/19 01:28 Oxygen Therapy [RC] PRN Up ad Sheela [RC] ASDIRECTED VTE/DVT Education [RC] PER UNIT ROUTINE Vital Signs [RC] Q1H Acetaminophen [Tylenol] 650 mg PO Q4H PRN oxyCODONE 5 mg PO Q4H PRN VTE Pharmacological Contraindications [AST] Per Unit Routine Resuscitation Status Routine 03/12/19 01:29 Antiembolic Devices [RC] PER UNIT ROUTINE Sequential Compression Device [OM.PC] Per Unit Routine 03/12/19 09:00 Diltiazem [Cardizem CD] 120 mg PO DAILY Glycopyrrolate/Formoterol Fum [Bevespi Aerosphere Inhaler] 10.7 gm INH DAILY Magnesium Oxide 400 mg PO BID 03/12/19 09:56 TROPONIN I [CHEM] Q6H 03/12/19 Breakfast Heart Healthy Diet [DIET] 03/13/19 05:11 INR,PT,PROTHROMBIN TIME [COAG] AM 03/14/19 05:11 INR,PT,PROTHROMBIN TIME [COAG] AM 03/15/19 05:11 INR,PT,PROTHROMBIN TIME [COAG] AM - Plan Plan:: The patient is a 68-year-old lady who presented to the emergency department primarily out of concern for dizziness and lightheadedness. She was noted to be in atrial fibrillation with RVR and had been placed in intensive care unit as inpatient secondary to Cardizem drip. She is also being co-managed by eICU. The patient did had some preceding nausea and vomiting which was likely the cause of her inability to maintain her medications and resulting in A. fib with RVR. The patient will be kept on Cardizem drip and her blood pressure will be monitored on telemetry. The patient will also have IV fluids as necessary for her dehydration. Her nausea and vomiting will be controlled with the use of Zofran. Because of the patient's chest pain I've ordered 2 more troponins. I've also ordered follow-up laboratory studies for the morning. The patient's warfarin will also be held as her INR is supratherapeutic and she does not have any urgent need for reversal of her INR at this time. The patient's INR will will be allowed to normalize slowly for now. If she does have evidence of bleeding been the INR will be reversed. She has been kept on a heart healthy diet. SCDs of also been ordered for the patient for DVT prophylaxis although DVT in her case is not likely to occur. She should be appropriate for discharge in 1-2 days. The patient is a 68-year-old lady who is still remaining in atrial fibrillation/ atrial flutter with RVR. The patient had been started on on amiodarone. She will continue to be monitored with eICU. The patient also has a supratherapeutic INR and I've ordered repeat laboratory testing has held her been for now. The patient will have the nausea and vomiting controlled with the use of Zofran. Follow-up troponins are pending. The patient will be kept on heart healthy diet as tolerated.
[2019-03-12] MEDS ORDERED: Metoprolol Tartrate 5 MG in Sodium Chloride 0.9% 50 ML IV ONE (06:56)
[2019-03-12] MEDS ORDERED: Metoprolol Tartrate 5 MG/5 ML SDV IVPUSH ONE (07:00)
[2019-03-12] MEDS ORDERED: Amiodarone In Dextrose,Iso-Osm 150 MG in Premix Bag 1 BAG IV ONE ×2 (07:05)
[2019-03-12] MEDS: Magnesium Oxide 400 MG Tab PO SCH ×2 (09:03→20:01)
[2019-03-12] MEDS: Diltiazem 120 MG Cap.CD PO SCH (09:04)
[2019-03-12] MEDS: Non-Formulary Medication 1 Each (Glycopyrrolate/Formoterol Fum [Bevespi Aerosphere Inhaler INH SCH (09:09)
[2019-03-12] MEDS ORDERED: Sodium Chloride 0.9% 500 ML IV ONE (10:07)
[2019-03-12] MEDS ORDERED: Diltiazem 100 MG in Sodium Chloride 0.9% 100 ML IV SCH (18:30)
[2019-03-12] MEDS: Acetaminophen 325 MG Tab PO PRN (22:18)
[2019-03-12] MEDS: oxyCODONE 5 MG Tab PO PRN (23:30)
[2019-03-13] MEDS: Sodium Chloride 0.9% 1,000 ML IV SCH (02:04)
[2019-03-13 05:24] LABS: CHLORIDE,CL 106 mmol/L (98-107); SODIUM,NA 138 mmol/L (136-145)
[2019-03-13] MEDS: Acetaminophen 325 MG Tab PO PRN (08:50)
[2019-03-13] MEDS: Magnesium Oxide 400 MG Tab PO SCH ×2 (08:50→20:53)
[2019-03-13] MEDS: Diltiazem 120 MG Cap.CD PO SCH (08:51)
[2019-03-13] MEDS: Non-Formulary Medication 1 Each (Glycopyrrolate/Formoterol Fum [Bevespi Aerosphere Inhaler INH SCH (08:52)
--- NOTE | 2019-03-13 09:37 | PCM.PN ---
<Rehan Schultz - Last Filed: 03/13/19 09:50> - General Info Date of Service: 03/13/19 Subjective Update: 68 y/o with hx of Afib on warfarin who was admitted for Afib w/RVR with a supratherapeutic INR 14. She was started on Amiodarone drip last night and this morning she converted to sinus and regular rate. Denies any chest pain, palpitations, dyspnea. - Patient Data Vitals - Most Recent: Last Vital Signs Temp 36.4 C 03/13/19 09:00 Pulse 123 H 03/12/19 09:04 Resp 18 03/13/19 09:00 BP 138/82 03/13/19 09:00 Pulse Ox 95 03/13/19 09:00 Weight - Most Recent: 65.453 kg I&O - Last 24 Hours: Intake & Output 03/12/19 03/13/19 03/13/19 22:59 06:59 14:59 Intake Total 2240 1619 Output Total 700 1100 Balance 1540 519 Lab Results Last 24 Hours: Laboratory Results - last 24 hr 03/12/19 03/12/19 03/13/19 Range/Units 10:15 10:15 04:38 WBC 7.87 (4.0-11.0) K/uL RBC 3.86 L (4.30-5.90) M/uL Hgb 11.2 L (12.0-16.0) g/dL Hct 35.0 L (36.0-46.0) % MCV 90.7 (80.0-98.0) fL MCH 29.0 (27.0-32.0) pg MCHC 32.0 (31.0-37.0) g/dL RDW Std Deviation 53.9 (28.0-62.0) fl RDW Coeff of Nilay 17 H (11.0-15.0) % Plt Count 124 L (150-400) K/uL MPV 10.10 (7.40-12.00) fL Neut % (Auto) 51.6 (48.0-80.0) % Lymph % (Auto) 36.1 (16.0-40.0) % [place] % (Auto) 7.0 (0.0-15.0) % Eos % (Auto) 4.8 (0.0-7.0) % Baso % (Auto) 0.5 (0.0-1.5) % Neut # (Auto) 4.1 (1.4-5.7) K/uL Lymph # (Auto) 2.8 H (0.6-2.4) K/uL [place] # (Auto) 0.6 (0.0-0.8) K/uL Eos # (Auto) 0.4 (0.0-0.7) K/uL Baso # (Auto) 0.0 (0.0-0.1) K/uL Nucleated RBC % 0.0 /100WBC Nucleated RBCs # 0 K/uL INR Sodium (136-145) mmol/L Potassium (3.5-5.1) mmol/L Chloride (98-107) mmol/L Carbon Dioxide (21.0-32.0) mmol/L BUN (7.0-18.0) mg/dL Creatinine (0.6-1.0) mg/dL Est Cr Clr Drug Dosing mL/min Estimated GFR (MDRD) ml/min Glucose (74-106) mg/dL Calcium (8.5-10.1) mg/dL Total Bilirubin (0.2-1.0) mg/dL AST (15-37) IU/L ALT (14-63) IU/L Alkaline Phosphatase (46-116) U/L Troponin I < 0.050 (0.000-0.056) ng/mL Total Protein (6.4-8.2) g/dL Albumin (3.4-5.0) g/dL Globulin (2.6-4.0) g/dL Albumin/Globulin Ratio (0.9-1.6) Free T4 1.06 (0.76-1.46) ng/dL TSH 3rd Generation 5.21 H (0.36-3.74) uIU/mL 03/13/19 03/13/19 Range/Units 04:38 05:23 WBC (4.0-11.0) K/uL RBC (4.30-5.90) M/uL Hgb (12.0-16.0) g/dL Hct (36.0-46.0) % MCV (80.0-98.0) fL MCH (27.0-32.0) pg MCHC (31.0-37.0) g/dL RDW Std Deviation (28.0-62.0) fl RDW Coeff of [place]ay (11.0-15.0) % Plt Count (150-400) K/uL MPV (7.40-12.00) fL Neut % (Auto) (48.0-80.0) % Lymph % (Auto) (16.0-40.0) % [place] % (Auto) (0.0-15.0) % Eos % (Auto) (0.0-7.0) % Baso % (Auto) (0.0-1.5) % Neut # (Auto) (1.4-5.7) K/uL Lymph # (Auto) (0.6-2.4) K/uL [place] # (Auto) (0.0-0.8) K/uL Eos # (Auto) (0.0-0.7) K/uL Baso # (Auto) (0.0-0.1) K/uL Nucleated RBC % /100WBC Nucleated RBCs # K/uL INR 9.09 H* Sodium 138 (136-145) mmol/L Potassium 4.2 (3.5-5.1) mmol/L Chloride 106 (98-107) mmol/L Carbon Dioxide 29.4 (21.0-32.0) mmol/L BUN 7 (7.0-18.0) mg/dL Creatinine 0.7 (0.6-1.0) mg/dL Est Cr Clr Drug Dosing 71.14 mL/min Estimated GFR (MDRD) > 60.0 ml/min Glucose 97 (74-106) mg/dL Calcium 7.9 L (8.5-10.1) mg/dL Total Bilirubin 0.3 (0.2-1.0) mg/dL AST 63 H (15-37) IU/L ALT 49 (14-63) IU/L Alkaline Phosphatase 67 (46-116) U/L Troponin I (0.000-0.056) ng/mL Total Protein 5.5 L (6.4-8.2) g/dL Albumin 2.6 L (3.4-5.0) g/dL Globulin 2.9 (2.6-4.0) g/dL Albumin/Globulin Ratio 0.9 (0.9-1.6) Free T4 (0.76-1.46) ng/dL TSH 3rd Generation (0.36-3.74) uIU/mL Med Orders - Current: Current Medications Acetaminophen (Tylenol) 650 mg PO Q4H PRN PRN Reason: Pain (Mild 1-3)/fever Last Admin: 03/13/19 08:50 Dose: 650 mg Amiodarone HCl (Cordarone) 200 mg PO BID [facility] Sodium Chloride (Normal Saline) 1,000 mls @ 75 mls/hr IV ASDIRECTED [facility] Last Admin: 03/13/19 02:04 Dose: 75 mls/hr Magnesium Oxide (Magnesium Oxide) 400 mg PO BID [facility] Last Admin: 03/13/19 08:50 Dose: 400 mg Non-Formulary Medication (Glycopyrrolate/Formoterol Fum [Bevespi Aerosphere Inhaler]) 10.7 gm INH DAILY [facility] Last Admin: 03/13/19 08:52 Dose: Not Given Oxycodone HCl (Oxycodone) 5 mg PO Q4H PRN PRN Reason: Pain (moderate 4-6) Last Admin: 03/12/19 23:30 Dose: 5 mg Sodium Chloride (Saline Flush) 10 ml FLUSH ASDIRECTED PRN PRN Reason: Keep Vein Open Last Admin: 03/11/19 21:55 Dose: 10 ml Sodium Chloride (Saline Flush) 2.5 ml FLUSH ASDIRECTED PRN PRN Reason: Keep Vein Open Last Admin: 03/11/19 21:55 Dose: 2.5 ml Discontinued Medications Amiodarone HCl (Cordarone) 400 mg PO BID [facility] Bismuth Subsalicylate (Pepto Bismol) 30 ml PO ONETIME ONE Stop: 03/12/19 02:22 Last Admin: 03/12/19 02:34 Dose: 30 ml Diltiazem HCl (Diltiazem) 10 mg IVPUSH ONETIME ONE Stop: 03/11/19 21:37 Last Admin: 03/11/19 21:53 Dose: 10 mg Diltiazem HCl (Diltiazem) 10 mg IVPUSH ONETIME ONE Stop: 03/11/19 22:06 Last Admin: 03/11/19 22:06 Dose: 10 mg Diltiazem HCl (Cardizem Cd) 120 mg PO DAILY [facility] Last Admin: 03/13/19 08:51 Dose: Not Given Diltiazem HCl 125 mg/ Sodium (Chloride) 125 mls @ 5 mls/hr IV NOW [facility]; Protocol Diltiazem HCl 100 mg/ Sodium (Chloride) 100 mls @ 5 mls/hr IV CONTINUOUS [facility] Last Infusion: 03/12/19 04:00 Dose: 2.5 mls/hr Sodium Chloride (Normal Saline) Confirm Administered Dose 100 mls @ as directed .ROUTE .STK-MED ONE Stop: 03/11/19 22:26 Last Admin: 03/11/19 22:32 Dose: Not Given Magnesium Sulfate 2 gm/ Premix 50 mls @ 50 mls/hr IV ONETIME ONE Stop: 03/12/19 01:35 Last Admin: 03/12/19 01:14 Dose: 50 mls/hr Lactated Ringer's (Ringers, Lactated) 1,000 mls @ 999 drops/hr IV .BOLUS ONE Stop: 03/12/19 19:34 Last Admin: 03/12/19 04:39 Dose: 999 drops/hr Amiodarone HCl/Dextrose (Nexterone In Dextrose 360 Mg/200 Ml) 360 mg in 200 mls @ 33.333 mls/hr IV ASDIRECTED [facility]; Protocol Stop: 03/12/19 13:16 Last Admin: 03/12/19 07:47 Dose: 1 mg/min, 33.333 mls/hr Amiodarone HCl/Dextrose 150 mg (/ Premix) 100 mls @ 400 mls/hr IV NOW ONE; Protocol Stop: 03/12/19 07:19 Last Admin: 03/12/19 07:29 Dose: 400 mls/hr Amiodarone HCl/Dextrose (Nexterone In Dextrose 360 Mg/200 Ml) 360 mg in 200 mls @ 16.667 mls/hr IV ASDIRECTED [facility]; Protocol Stop: 03/13/19 13:18 Last Admin: 03/13/19 00:36 Dose: 0.5 mg/min, 16.667 mls/hr Diltiazem HCl 100 mg/ Sodium (Chloride) 100 mls @ 5 mls/hr IV CONTINUOUS [facility] Sodium Chloride (Normal Saline) 500 mls @ 500 mls/hr IV .Bolus ONE Stop: 03/12/19 11:06 Last Admin: 03/12/19 10:28 Dose: 500 mls/hr Amiodarone HCl/Dextrose (Nexterone In Dextrose 360 Mg/200 Ml) 360 mg in 200 mls @ 33.333 mls/hr IV Q6H [facility]; Protocol Last Infusion: 03/12/19 13:31 Dose: 0.5 mg/min, 16.667 mls/hr Amiodarone HCl/Dextrose (Nexterone In Dextrose 360 Mg/200 Ml) 360 mg in 200 mls @ 16.667 mls/hr IV ASDIRECTED [facility]; Protocol Stop: 03/14/19 07:31 Metoprolol Tartrate (Lopressor) 5 mg IVPUSH ONETIME ONE Stop: 03/11/19 22:19 Last Admin: 03/11/19 22:22 Dose: 5 mg Metoprolol Tartrate (Lopressor) 5 mg IVPUSH ONETIME ONE Stop: 03/12/19 07:01 Last Admin: 03/12/19 07:04 Dose: Not Given Potassium Chloride (Klor-Con M20) 40 meq PO ONETIME ONE Stop: 03/11/19 22:16 Last Admin: 03/11/19 22:22 Dose: 40 meq - Exam General: Alert, Oriented, Cooperative, No Acute Distress Lungs: Clear to Auscultation, Normal Respiratory Effort. No: Crackles, Wheezing Cardiovascular: Regular Rate, Regular Rhythm GI/Abdominal Exam: Normal Bowel Sounds, Soft, Non-Tender Extremities: Normal Inspection, No Pedal Edema Skin: Warm, Dry - Problem List Review Problem List Initiated/Reviewed/Updated: Yes - My Orders Last 24 Hours: My Active Orders 03/13/19 09:05 Transfer Patient (Change bed) [ADT] Routine 03/13/19 09:45 Amiodarone [Cordarone] 200 mg PO BID - Plan Plan:: A: 1. Afib, rate controlled 2. Supratherapeutic INR 3. Subclinical hypothyroidism P: 1. Afib, rate controlled. Pt converted to sinus rhythm with amiodarone. Will transition to PO amiodarone today. Continue telemetry. 2. Supratherapeutic INR- improving, now INR 9. Holding anticoagulants. 3. subclinical hypothyroidism- will check TPO antibody. Will need to follow-up as outpatient for repeat labs. Dispo: likely DC tomorrow. <Ari Vincent M - Last Filed: 03/13/19 14:25> - General Info Admission Dx/Problem (Free Text): I have seen and examined to patient independently of electromedical equipment technician, Rehan Hendricks MD. I have discussed the case for care of this patient with him. I have reviewed and approve of the plan of care as outlined by electromedical equipment technician. Please see orders. - Patient Data Vitals - Most Recent: Last Vital Signs Temp 36.1 C 03/13/19 12:30 Pulse 123 H 03/12/19 09:04 Resp 18 03/13/19 12:30 BP 151/82 H 03/13/19 12:30 Pulse Ox 96 03/13/19 12:30 I&O - Last 24 Hours: Intake & Output 03/12/19 03/13/19 03/13/19 22:59 06:59 14:59 Intake Total 2240 1619 Output Total 700 1100 Balance 1540 519 Lab Results Last 24 Hours: Laboratory Results - last 24 hr 03/13/19 03/13/19 03/13/19 Range/Units 04:38 04:38 05:23 WBC 7.87 (4.0-11.0) K/uL RBC 3.86 L (4.30-5.90) M/uL Hgb 11.2 L (12.0-16.0) g/dL Hct 35.0 L (36.0-46.0) % MCV 90.7 (80.0-98.0) fL MCH 29.0 (27.0-32.0) pg MCHC 32.0 (31.0-37.0) g/dL RDW Std Deviation 53.9 (28.0-62.0) fl RDW Coeff of [place]ay 17 H (11.0-15.0) % Plt Count 124 L (150-400) K/uL MPV 10.10 (7.40-12.00) fL Neut % (Auto) 51.6 (48.0-80.0) % Lymph % (Auto) 36.1 (16.0-40.0) % [place] % (Auto) 7.0 (0.0-15.0) % Eos % (Auto) 4.8 (0.0-7.0) % Baso % (Auto) 0.5 (0.0-1.5) % Neut # (Auto) 4.1 (1.4-5.7) K/uL Lymph # (Auto) 2.8 H (0.6-2.4) K/uL [place] # (Auto) 0.6 (0.0-0.8) K/uL Eos # (Auto) 0.4 (0.0-0.7) K/uL Baso # (Auto) 0.0 (0.0-0.1) K/uL Nucleated RBC % 0.0 /100WBC Nucleated RBCs # 0 K/uL INR 9.09 H* Sodium 138 (136-145) mmol/L Potassium 4.2 (3.5-5.1) mmol/L Chloride 106 (98-107) mmol/L Carbon Dioxide 29.4 (21.0-32.0) mmol/L BUN 7 (7.0-18.0) mg/dL Creatinine 0.7 (0.6-1.0) mg/dL Est Cr Clr Drug Dosing 71.14 mL/min Estimated GFR (MDRD) > 60.0 ml/min Glucose 97 (74-106) mg/dL Calcium 7.9 L (8.5-10.1) mg/dL Total Bilirubin 0.3 (0.2-1.0) mg/dL AST 63 H (15-37) IU/L ALT 49 (14-63) IU/L Alkaline Phosphatase 67 (46-116) U/L Total Protein 5.5 L (6.4-8.2) g/dL Albumin 2.6 L (3.4-5.0) g/dL Globulin 2.9 (2.6-4.0) g/dL Albumin/Globulin Ratio 0.9 (0.9-1.6) Med Orders - Current: Current Medications Acetaminophen (Tylenol) 650 mg PO Q4H PRN PRN Reason: Pain (Mild 1-3)/fever Last Admin: 03/13/19 08:50 Dose: 650 mg Amiodarone HCl (Cordarone) 200 mg PO BID [facility] Last Admin: 03/13/19 09:43 Dose: 200 mg Magnesium Oxide (Magnesium Oxide) 400 mg PO BID [facility] Last Admin: 03/13/19 08:50 Dose: 400 mg Non-Formulary Medication (Glycopyrrolate/Formoterol Fum [Bevespi Aerosphere Inhaler]) 10.7 gm INH DAILY [facility] Last Admin: 03/13/19 08:52 Dose: Not Given Oxycodone HCl (Oxycodone) 5 mg PO Q4H PRN PRN Reason: Pain (moderate 4-6) Last Admin: 03/12/19 23:30 Dose: 5 mg Sodium Chloride (Saline Flush) 10 ml FLUSH ASDIRECTED PRN PRN Reason: Keep Vein Open Last Admin: 03/11/19 21:55 Dose: 10 ml Sodium Chloride (Saline Flush) 2.5 ml FLUSH ASDIRECTED PRN PRN Reason: Keep Vein Open Last Admin: 03/11/19 21:55 Dose: 2.5 ml Discontinued Medications Amiodarone HCl (Cordarone) 400 mg PO BID [facility] Bismuth Subsalicylate (Pepto Bismol) 30 ml PO ONETIME ONE Stop: 03/12/19 02:22 Last Admin: 03/12/19 02:34 Dose: 30 ml Diltiazem HCl (Diltiazem) 10 mg IVPUSH ONETIME ONE Stop: 03/11/19 21:37 Last Admin: 03/11/19 21:53 Dose: 10 mg Diltiazem HCl (Diltiazem) 10 mg IVPUSH ONETIME ONE Stop: 03/11/19 22:06 Last Admin: 03/11/19 22:06 Dose: 10 mg Diltiazem HCl (Cardizem Cd) 120 mg PO DAILY [facility] Last Admin: 03/13/19 08:51 Dose: Not Given Sodium Chloride (Normal Saline) 1,000 mls @ 75 mls/hr IV ASDIRECTED [facility] Last Admin: 03/13/19 02:04 Dose: 75 mls/hr Diltiazem HCl 125 mg/ Sodium (Chloride) 125 mls @ 5 mls/hr IV NOW [facility]; Protocol Diltiazem HCl 100 mg/ Sodium (Chloride) 100 mls @ 5 mls/hr IV CONTINUOUS [facility] Last Infusion: 03/12/19 04:00 Dose: 2.5 mls/hr Sodium Chloride (Normal Saline) Confirm Administered Dose 100 mls @ as directed .ROUTE .STK-MED ONE Stop: 03/11/19 22:26 Last Admin: 03/11/19 22:32 Dose: Not Given Magnesium Sulfate 2 gm/ Premix 50 mls @ 50 mls/hr IV ONETIME ONE Stop: 03/12/19 01:35 Last Admin: 03/12/19 01:14 Dose: 50 mls/hr Lactated Ringer's (Ringers, Lactated) 1,000 mls @ 999 drops/hr IV .BOLUS ONE Stop: 03/12/19 19:34 Last Admin: 03/12/19 04:39 Dose: 999 drops/hr Amiodarone HCl/Dextrose (Nexterone In Dextrose 360 Mg/200 Ml) 360 mg in 200 mls @ 33.333 mls/hr IV ASDIRECTED [facility]; Protocol Stop: 03/12/19 13:16 Last Admin: 03/12/19 07:47 Dose: 1 mg/min, 33.333 mls/hr Amiodarone HCl/Dextrose 150 mg (/ Premix) 100 mls @ 400 mls/hr IV NOW ONE; Protocol Stop: 03/12/19 07:19 Last Admin: 03/12/19 07:29 Dose: 400 mls/hr Amiodarone HCl/Dextrose (Nexterone In Dextrose 360 Mg/200 Ml) 360 mg in 200 mls @ 16.667 mls/hr IV ASDIRECTED [facility]; Protocol Stop: 03/13/19 13:18 Last Admin: 03/13/19 00:36 Dose: 0.5 mg/min, 16.667 mls/hr Diltiazem HCl 100 mg/ Sodium (Chloride) 100 mls @ 5 mls/hr IV CONTINUOUS [facility] Sodium Chloride (Normal Saline) 500 mls @ 500 mls/hr IV .Bolus ONE Stop: 03/12/19 11:06 Last Admin: 03/12/19 10:28 Dose: 500 mls/hr Amiodarone HCl/Dextrose (Nexterone In Dextrose 360 Mg/200 Ml) 360 mg in 200 mls @ 33.333 mls/hr IV Q6H [facility]; Protocol Last Infusion: 03/12/19 13:31 Dose: 0.5 mg/min, 16.667 mls/hr Amiodarone HCl/Dextrose (Nexterone In Dextrose 360 Mg/200 Ml) 360 mg in 200 mls @ 16.667 mls/hr IV ASDIRECTED [facility]; Protocol Stop: 03/14/19 07:31 Metoprolol Tartrate (Lopressor) 5 mg IVPUSH ONETIME ONE Stop: 03/11/19 22:19 Last Admin: 03/11/19 22:22 Dose: 5 mg Metoprolol Tartrate (Lopressor) 5 mg IVPUSH ONETIME ONE Stop: 03/12/19 07:01 Last Admin: 03/12/19 07:04 Dose: Not Given Potassium Chloride (Klor-Con M20) 40 meq PO ONETIME ONE Stop: 03/11/19 22:16 Last Admin: 03/11/19 22:22 Dose: 40 meq - Problem List & Annotations (1) Atrial fibrillation with RVR SNOMED Code(s): 787573435890493 Code(s): I48.91 - UNSPECIFIED ATRIAL FIBRILLATION Status: Chronic Priority: High Current Visit: Yes Annotation/Comment:: With RVR (2) Coumadin toxicity SNOMED Code(s): 68364439 Code(s): T45.511A - POISONING BY ANTICOAGULANTS, ACCIDENTAL, INIT Status: Acute Priority: High Current Visit: Yes Qualifiers: Encounter type: subsequent encounter Injury intent: accidental or unintentional Qualified Code(s): T45.511D - Poisoning by anticoagulants, accidental (unintentional), subsequent encounter (3) Nausea and vomiting SNOMED Code(s): 11421198 Code(s): R11.2 - NAUSEA WITH VOMITING, UNSPECIFIED Status: Acute Priority : High Current Visit: Yes Qualifiers: Vomiting type: unspecified Vomiting Intractability: non-intractable Qualified Code(s): R11.2 - Nausea with vomiting, unspecified (4) Dehydration SNOMED Code(s): 47741412 Code(s): E86.0 - DEHYDRATION Status: Acute Priority: High Current Visit : Yes - My Orders Last 24 Hours: My Active Orders 03/13/19 08:02 EKG 12 Lead [EKG Documentation Completion] [RC] STAT 03/13/19 14:00 Telemetry Monitoring [Cardiac Monitoring] [RC] Q8HR 03/14/19 05:11 INR,PT,PROTHROMBIN TIME [COAG] AM 03/15/19 05:11 INR,PT,PROTHROMBIN TIME [COAG] AM
[2019-03-13] MEDS: Amiodarone 200 MG Tab PO SCH ×2 (09:43→20:53)
[2019-03-13] MEDS ORDERED: Amiodarone 200 MG Tab PO SCH (21:00)
[2019-03-13] MEDS ORDERED: Phytonadione 5 MG Tab PO ONE (21:56)
[2019-03-13] MEDS: oxyCODONE 5 MG Tab PO PRN (22:23)
[2019-03-13] MEDS: Nicotine 7 MG/24 Hr Patch TRDERM SCH (22:56)
[2019-03-14 06:41] LABS: CHLORIDE,CL 102 mmol/L (98-107); SODIUM,NA 134 mmol/L (136-145)
[2019-03-14] MEDS ORDERED: Potassium Chloride 20 MEQ Tab.ER PO ONE (08:07)
[2019-03-14 08:08] VITALS: BP 137/80
[2019-03-14] MEDS: Amiodarone 200 MG Tab PO SCH (09:10)
[2019-03-14] MEDS: Magnesium Oxide 400 MG Tab PO SCH (09:10)
[2019-03-14] MEDS: Nicotine 7 MG/24 Hr Patch TRDERM SCH (09:11)
[2019-03-14] MEDS: Non-Formulary Medication 1 Each (Glycopyrrolate/Formoterol Fum [Bevespi Aerosphere Inhaler INH SCH (09:11)
--- NOTE | 2019-03-14 09:34 | PCM.PN ---
<Josselyn Davila M - Last Filed: 03/14/19 09:40> - General Info Date of Service: 03/14/19 Admission Dx/Problem (Free Text): A fib with RVR, supratherapeutic INR, gross hematuria Subjective Update: Feels fine this morning, concerned about her gross hematuria, which started overnight. She denies vaginal bleeding, blood is only when she urinates. No abdominal pain. No chest pain or SOB. Functional Status: Reports: Pain Controlled, Tolerating Diet, Ambulating, Urinating - Review of Systems General: Reports: No Symptoms. Denies: Weakness, Malaise Pulmonary: Reports: No Symptoms. Denies: Shortness of Breath Cardiovascular: Reports: No Symptoms. Denies: Chest Pain, Palpitations, Dyspnea on Exertion Gastrointestinal: Reports: No Symptoms. Denies: Abdominal Pain, Nausea, Vomiting Genitourinary: Reports: Hematuria (gross) Musculoskeletal: Reports: No Symptoms Skin: Reports: No Symptoms Neurological: Reports: No Symptoms Psychiatric: Reports: No Symptoms - Patient Data Vitals - Most Recent: Last Vital Signs Temp 98.7 F 03/14/19 08:00 Pulse 84 03/14/19 08:00 Resp 18 03/14/19 08:00 BP 137/80 03/14/19 08:00 Pulse Ox 93 L 03/14/19 08:00 Weight - Most Recent: 65.453 kg I&O - Last 24 Hours: Intake & Output 03/13/19 03/14/19 03/14/19 22:59 06:59 14:59 Intake Total 350 240 Output Total 0 520 Balance 350 -280 Lab Results Last 24 Hours: Laboratory Results - last 24 hr 03/13/19 03/14/19 03/14/19 Range/Units 14:54 05:32 05:32 WBC 8.39 (4.0-11.0) K/uL RBC 3.72 L (4.30-5.90) M/uL Hgb 11.0 L (12.0-16.0) g/dL Hct 34.1 L (36.0-46.0) % MCV 91.7 (80.0-98.0) fL MCH 29.6 (27.0-32.0) pg MCHC 32.3 (31.0-37.0) g/dL RDW Std Deviation 54.7 (28.0-62.0) fl RDW Coeff of Nilay 17 H (11.0-15.0) % Plt Count 126 L (150-400) K/uL MPV 10.00 (7.40-12.00) fL Nucleated RBC % 0.0 /100WBC Nucleated RBCs # 0 K/uL INR 3.02 Sodium 134 L (136-145) mmol/L Potassium 3.7 (3.5-5.1) mmol/L Chloride 102 (98-107) mmol/L Carbon Dioxide 25.3 (21.0-32.0) mmol/L BUN 7 (7.0-18.0) mg/dL Creatinine 0.7 (0.6-1.0) mg/dL Est Cr Clr Drug Dosing 71.14 mL/min Estimated GFR (MDRD) > 60.0 ml/min Glucose 118 H (74-106) mg/dL Calcium 8.3 L (8.5-10.1) mg/dL 03/14/19 Range/Units 05:32 WBC 10.61 (4.0-11.0) K/uL RBC 3.60 L (4.30-5.90) M/uL Hgb 10.6 L (12.0-16.0) g/dL Hct 32.9 L (36.0-46.0) % MCV 91.4 (80.0-98.0) fL MCH 29.4 (27.0-32.0) pg MCHC 32.2 (31.0-37.0) g/dL RDW Std Deviation 54.5 (28.0-62.0) fl RDW Coeff of Nilay 17 H (11.0-15.0) % Plt Count 120 L (150-400) K/uL MPV 10.30 (7.40-12.00) fL Nucleated RBC % 0.0 /100WBC Nucleated RBCs # 0 K/uL INR Sodium (136-145) mmol/L Potassium (3.5-5.1) mmol/L Chloride (98-107) mmol/L Carbon Dioxide (21.0-32.0) mmol/L BUN (7.0-18.0) mg/dL Creatinine (0.6-1.0) mg/dL Est Cr Clr Drug Dosing mL/min Estimated GFR (MDRD) ml/min Glucose (74-106) mg/dL Calcium (8.5-10.1) mg/dL Med Orders - Current: Current Medications Acetaminophen (Tylenol) 650 mg PO Q4H PRN PRN Reason: Pain (Mild 1-3)/fever Last Admin: 03/13/19 08:50 Dose: 650 mg Amiodarone HCl (Cordarone) 200 mg PO BID REPLACED BY [facility] Last Admin: 03/14/19 09:10 Dose: 200 mg Magnesium Oxide (Magnesium Oxide) 400 mg PO BID REPLACED BY [facility] Last Admin: 03/14/19 09:10 Dose: 400 mg Nicotine (Habitrol) 7 mg TRDERM DAILY REPLACED BY [facility] Last Admin: 03/14/19 09:11 Dose: Not Given Non-Formulary Medication (Glycopyrrolate/Formoterol Fum [Bevespi Aerosphere Inhaler]) 10.7 gm INH DAILY REPLACED BY [facility] Last Admin: 03/14/19 09:11 Dose: Not Given Oxycodone HCl (Oxycodone) 5 mg PO Q4H PRN PRN Reason: Pain (moderate 4-6) Last Admin: 03/13/19 22:23 Dose: 5 mg Sodium Chloride (Saline Flush) 10 ml FLUSH ASDIRECTED PRN PRN Reason: Keep Vein Open Last Admin: 03/11/19 21:55 Dose: 10 ml Sodium Chloride (Saline Flush) 2.5 ml FLUSH ASDIRECTED PRN PRN Reason: Keep Vein Open Last Admin: 03/11/19 21:55 Dose: 2.5 ml Warfarin Sodium (Coumadin) 2.5 mg PO DAILY@1400 REPLACED BY [facility] Discontinued Medications Amiodarone HCl (Cordarone) 400 mg PO BID REPLACED BY [facility] Bismuth Subsalicylate (Pepto Bismol) 30 ml PO ONETIME ONE Stop: 03/12/19 02:22 Last Admin: 03/12/19 02:34 Dose: 30 ml Diltiazem HCl (Diltiazem) 10 mg IVPUSH ONETIME ONE Stop: 03/11/19 21:37 Last Admin: 03/11/19 21:53 Dose: 10 mg Diltiazem HCl (Diltiazem) 10 mg IVPUSH ONETIME ONE Stop: 03/11/19 22:06 Last Admin: 03/11/19 22:06 Dose: 10 mg Diltiazem HCl (Cardizem Cd) 120 mg PO DAILY JASON Last Admin: 03/13/19 08:51 Dose: Not Given Sodium Chloride (Normal Saline) 1,000 mls @ 75 mls/hr IV ASDIRECTED JASON Last Admin: 03/13/19 02:04 Dose: 75 mls/hr Diltiazem HCl 125 mg/ Sodium (Chloride) 125 mls @ 5 mls/hr IV NOW JASON; Protocol Diltiazem HCl 100 mg/ Sodium (Chloride) 100 mls @ 5 mls/hr IV CONTINUOUS JASON Last Infusion: 03/12/19 04:00 Dose: 2.5 mls/hr Sodium Chloride (Normal Saline) Confirm Administered Dose 100 mls @ as directed .ROUTE .K-MED ONE Stop: 03/11/19 22:26 Last Admin: 03/11/19 22:32 Dose: Not Given Magnesium Sulfate 2 gm/ Premix 50 mls @ 50 mls/hr IV ONETIME ONE Stop: 03/12/19 01:35 Last Admin: 03/12/19 01:14 Dose: 50 mls/hr Lactated Ringer's (Ringers, Lactated) 1,000 mls @ 999 drops/hr IV .BOLUS ONE Stop: 03/12/19 19:34 Last Admin: 03/12/19 04:39 Dose: 999 drops/hr Amiodarone HCl/Dextrose (Nexterone In Dextrose 360 Mg/200 Ml) 360 mg in 200 mls @ 33.333 mls/hr IV ASDIRECTED JASON; Protocol Stop: 03/12/19 13:16 Last Admin: 03/12/19 07:47 Dose: 1 mg/min, 33.333 mls/hr Amiodarone HCl/Dextrose 150 mg (/ Premix) 100 mls @ 400 mls/hr IV NOW ONE; Protocol Stop: 03/12/19 07:19 Last Admin: 03/12/19 07:29 Dose: 400 mls/hr Amiodarone HCl/Dextrose (Nexterone In Dextrose 360 Mg/200 Ml) 360 mg in 200 mls @ 16.667 mls/hr IV ASDIRECTED JASON; Protocol Stop: 03/13/19 13:18 Last Admin: 03/13/19 00:36 Dose: 0.5 mg/min, 16.667 mls/hr Diltiazem HCl 100 mg/ Sodium (Chloride) 100 mls @ 5 mls/hr IV CONTINUOUS JASON Sodium Chloride (Normal Saline) 500 mls @ 500 mls/hr IV .Bolus ONE Stop: 03/12/19 11:06 Last Admin: 03/12/19 10:28 Dose: 500 mls/hr Amiodarone HCl/Dextrose (Nexterone In Dextrose 360 Mg/200 Ml) 360 mg in 200 mls @ 33.333 mls/hr IV Q6H JASON; Protocol Last Infusion: 03/12/19 13:31 Dose: 0.5 mg/min, 16.667 mls/hr Amiodarone HCl/Dextrose (Nexterone In Dextrose 360 Mg/200 Ml) 360 mg in 200 mls @ 16.667 mls/hr IV ASDIRECTED JASON; Protocol Stop: 03/14/19 07:31 Metoprolol Tartrate (Lopressor) 5 mg IVPUSH ONETIME ONE Stop: 03/11/19 22:19 Last Admin: 03/11/19 22:22 Dose: 5 mg Metoprolol Tartrate (Lopressor) 5 mg IVPUSH ONETIME ONE Stop: 03/12/19 07:01 Last Admin: 03/12/19 07:04 Dose: Not Given Phytonadione (Mephyton) 10 mg PO ONETIME ONE Stop: 03/13/19 21:57 Last Admin: 03/13/19 23:36 Dose: Not Given Phytonadione (Aquamephyton) 10 mg IM ONETIME ONE Stop: 03/13/19 22:46 Last Admin: 03/13/19 22:54 Dose: 10 mg Potassium Chloride (Klor-Con M20) 40 meq PO ONETIME ONE Stop: 03/11/19 22:16 Last Admin: 03/11/19 22:22 Dose: 40 meq Potassium Chloride (Klor-Con M20) 40 meq PO ONETIME ONE Stop: 03/14/19 08:08 Last Admin: 03/14/19 09:10 Dose: 40 meq - Exam General: Alert, Oriented, Cooperative, No Acute Distress Neck: Supple Lungs: Clear to Auscultation, Normal Respiratory Effort Cardiovascular: Regular Rate, Regular Rhythm, No Murmurs GI/Abdominal Exam: Normal Bowel Sounds, Soft, Non-Tender, No Organomegaly, No Mass Extremities: Normal Inspection, Normal Range of Motion, Non-Tender, No Pedal Edema, Normal Capillary Refill Neurological: No New Focal Deficit Psy/Mental Status: Alert, Normal Affect, Normal Mood - Problem List & Annotations (1) Atrial fibrillation with RVR SNOMED Code(s): 466992361580293 Code(s): I48.91 - UNSPECIFIED ATRIAL FIBRILLATION Status: Acute Priority : High Current Visit: Yes Annotation/Comment:: With RVR (2) Supratherapeutic INR SNOMED Code(s): 607497661 Code(s): R79.1 - ABNORMAL COAGULATION PROFILE Status: Acute Current Visit : Yes (3) Gross hematuria SNOMED Code(s): 878288064 Code(s): R31.0 - GROSS HEMATURIA Status: Acute Current Visit: Yes (4) Dehydration SNOMED Code(s): 09337823 Code(s): E86.0 - DEHYDRATION Status: Resolved Priority: High Current Visit: Yes (5) Nausea and vomiting SNOMED Code(s): 94701928 Code(s): R11.2 - NAUSEA WITH VOMITING, UNSPECIFIED Status: Resolved Priority: High Current Visit: Yes Qualifiers: Vomiting type: unspecified Vomiting Intractability: non-intractable Qualified Code(s): R11.2 - Nausea with vomiting, unspecified (6) Smoker SNOMED Code(s): 27716376 Code(s): F17.200 - NICOTINE DEPENDENCE, UNSPECIFIED, UNCOMPLICATED Status: Chronic Current Visit: Yes (7) Hx of hepatitis C SNOMED Code(s): 15176548970325, 90737605291533 Code(s): Z86.19 - PERSONAL HISTORY OF OTHER INFECTIOUS AND PARASITIC DISEASES Status: Chronic Current Visit: Yes - Problem List Review Problem List Initiated/Reviewed/Updated: Yes - My Orders Last 24 Hours: My Active Orders 03/14/19 09:30 Abdomen w wo Cont [CT] Urgent 03/14/19 14:00 Warfarin [Coumadin] 2.5 mg PO DAILY@1400 - Plan Plan:: This 68 chay old female admitted with Afib RVR, dehydration and N/V 1. Afib, rate controlled: Converted to SR with the initiation of Amiodarone. Continue Amiodarone 200 mg BID. Monitor on Telemetry. Keep potassium above 4.0 and magnesium about 2.0. 2. Supratherapeutic INR: Given Vitamin K 10 mg overnight due to gross hematuria. INR 3 today. Likely to continue to drop, would like to restart Coumadin soon, evaluate hematuria and likely restart this afternoon. 3. Gross hematuria: Due to risk factors, smoking, and new gross hematuria will obtain CT of abdomen and pelvis to evaluate further prior to restarting Coumadin. May be spontaneous bleeding from supratherapeutic INR. VTE prophylaxis: None, currently due to bleeding Dispo: 1 day <Ari Vincent - Last Filed: 03/14/19 12:15> - General Info Admission Dx/Problem (Free Text): I have seen and examined to patient independently of Josselyn Davila CNP. I have discussed the case for care of this patient with her. I have reviewed and approve of the plan of care as outlined by her. Please see orders. - Patient Data Vitals - Most Recent: Last Vital Signs Temp 37.1 C 03/14/19 08:00 Pulse 84 03/14/19 08:00 Resp 18 03/14/19 08:00 BP 137/80 03/14/19 08:00 Pulse Ox 93 L 03/14/19 08:00 I&O - Last 24 Hours: Intake & Output 03/13/19 03/14/19 03/14/19 22:59 06:59 14:59 Intake Total 350 240 Output Total 0 520 Balance 350 -280 Lab Results Last 24 Hours: Laboratory Results - last 24 hr 03/13/19 03/14/19 03/14/19 Range/Units 14:54 05:32 05:32 WBC 8.39 (4.0-11.0) K/uL RBC 3.72 L (4.30-5.90) M/uL Hgb 11.0 L (12.0-16.0) g/dL Hct 34.1 L (36.0-46.0) % MCV 91.7 (80.0-98.0) fL MCH 29.6 (27.0-32.0) pg MCHC 32.3 (31.0-37.0) g/dL RDW Std Deviation 54.7 (28.0-62.0) fl RDW Coeff of Nilay 17 H (11.0-15.0) % Plt Count 126 L (150-400) K/uL MPV 10.00 (7.40-12.00) fL Nucleated RBC % 0.0 /100WBC Nucleated RBCs # 0 K/uL INR 3.02 Sodium 134 L (136-145) mmol/L Potassium 3.7 (3.5-5.1) mmol/L Chloride 102 (98-107) mmol/L Carbon Dioxide 25.3 (21.0-32.0) mmol/L BUN 7 (7.0-18.0) mg/dL Creatinine 0.7 (0.6-1.0) mg/dL Est Cr Clr Drug Dosing 71.14 mL/min Estimated GFR (MDRD) > 60.0 ml/min Glucose 118 H (74-106) mg/dL Calcium 8.3 L (8.5-10.1) mg/dL Urine Color Urine Appearance Urine pH (5.0-8.0) Ur Specific Eccles (1.001-1.035) Urine Protein (NEGATIVE) mg/dL Urine Glucose (UA) (NEGATIVE) mg/dL Urine Ketones (NEGATIVE) mg/dL Urine Occult Blood (NEGATIVE) Urine Nitrite (NEGATIVE) Urine Bilirubin (NEGATIVE) Urine Urobilinogen (<2.0) EU/dL Ur Leukocyte Esterase (NEGATIVE) Urine RBC (0-2/HPF) Urine WBC (0-5/HPF) Ur Epithelial Cells (NONE-FEW) Urine Bacteria (NEGATIVE) 03/14/19 03/14/19 Range/Units 05:32 11:10 WBC 10.61 (4.0-11.0) K/uL RBC 3.60 L (4.30-5.90) M/uL Hgb 10.6 L (12.0-16.0) g/dL Hct 32.9 L (36.0-46.0) % MCV 91.4 (80.0-98.0) fL MCH 29.4 (27.0-32.0) pg MCHC 32.2 (31.0-37.0) g/dL RDW Std Deviation 54.5 (28.0-62.0) fl RDW Coeff of Nilay 17 H (11.0-15.0) % Plt Count 120 L (150-400) K/uL MPV 10.30 (7.40-12.00) fL Nucleated RBC % 0.0 /100WBC Nucleated RBCs # 0 K/uL INR Sodium (136-145) mmol/L Potassium (3.5-5.1) mmol/L Chloride (98-107) mmol/L Carbon Dioxide (21.0-32.0) mmol/L BUN (7.0-18.0) mg/dL Creatinine (0.6-1.0) mg/dL Est Cr Clr Drug Dosing mL/min Estimated GFR (MDRD) ml/min Glucose (74-106) mg/dL Calcium (8.5-10.1) mg/dL Urine Color PINK Urine Appearance CLOUDY Urine pH 8.0 (5.0-8.0) Ur Specific Eccles 1.010 (1.001-1.035) Urine Protein NEGATIVE (NEGATIVE) mg/dL Urine Glucose (UA) NEGATIVE (NEGATIVE) mg/dL Urine Ketones NEGATIVE (NEGATIVE) mg/dL Urine Occult Blood LARGE H (NEGATIVE) Urine Nitrite NEGATIVE (NEGATIVE) Urine Bilirubin NEGATIVE (NEGATIVE) Urine Urobilinogen 0.2 (<2.0) EU/dL Ur Leukocyte Esterase NEGATIVE (NEGATIVE) Urine RBC 120-150 (0-2/HPF) Urine WBC 0-2 (0-5/HPF) Ur Epithelial Cells RARE (NONE-FEW) Urine Bacteria NOT SEEN (NEGATIVE) Med Orders - Current: Current Medications Acetaminophen (Tylenol) 650 mg PO Q4H PRN PRN Reason: Pain (Mild 1-3)/fever Last Admin: 03/13/19 08:50 Dose: 650 mg Amiodarone HCl (Cordarone) 200 mg PO BID REPLACED BY [facility] Last Admin: 03/14/19 09:10 Dose: 200 mg Magnesium Oxide (Magnesium Oxide) 400 mg PO BID REPLACED BY [facility] Last Admin: 03/14/19 09:10 Dose: 400 mg Nicotine (Habitrol) 7 mg TRDERM DAILY REPLACED BY [facility] Last Admin: 03/14/19 09:11 Dose: Not Given Non-Formulary Medication (Glycopyrrolate/Formoterol Fum [Bevespi Aerosphere Inhaler]) 10.7 gm INH DAILY REPLACED BY [facility] Last Admin: 03/14/19 09:11 Dose: Not Given Oxycodone HCl (Oxycodone) 5 mg PO Q4H PRN PRN Reason: Pain (moderate 4-6) Last Admin: 03/13/19 22:23 Dose: 5 mg Sodium Chloride (Saline Flush) 10 ml FLUSH ASDIRECTED PRN PRN Reason: Keep Vein Open Last Admin: 03/11/19 21:55 Dose: 10 ml Sodium Chloride (Saline Flush) 2.5 ml FLUSH ASDIRECTED PRN PRN Reason: Keep Vein Open Last Admin: 03/11/19 21:55 Dose: 2.5 ml Warfarin Sodium (Coumadin) 2.5 mg PO DAILY@1400 JASON Discontinued Medications Amiodarone HCl (Cordarone) 400 mg PO BID REPLACED BY [facility] Bismuth Subsalicylate (Pepto Bismol) 30 ml PO ONETIME ONE Stop: 03/12/19 02:22 Last Admin: 03/12/19 02:34 Dose: 30 ml Diltiazem HCl (Diltiazem) 10 mg IVPUSH ONETIME ONE Stop: 03/11/19 21:37 Last Admin: 03/11/19 21:53 Dose: 10 mg Diltiazem HCl (Diltiazem) 10 mg IVPUSH ONETIME ONE Stop: 03/11/19 22:06 Last Admin: 03/11/19 22:06 Dose: 10 mg Diltiazem HCl (Cardizem Cd) 120 mg PO DAILY REPLACED BY [facility] Last Admin: 03/13/19 08:51 Dose: Not Given Sodium Chloride (Normal Saline) 1,000 mls @ 75 mls/hr IV ASDIRECTED JASON Last Admin: 03/13/19 02:04 Dose: 75 mls/hr Diltiazem HCl 125 mg/ Sodium (Chloride) 125 mls @ 5 mls/hr IV NOW JASON; Protocol Diltiazem HCl 100 mg/ Sodium (Chloride) 100 mls @ 5 mls/hr IV CONTINUOUS JASON Last Infusion: 03/12/19 04:00 Dose: 2.5 mls/hr Sodium Chloride (Normal Saline) Confirm Administered Dose 100 mls @ as directed .ROUTE .STK-MED ONE Stop: 03/11/19 22:26 Last Admin: 03/11/19 22:32 Dose: Not Given Magnesium Sulfate 2 gm/ Premix 50 mls @ 50 mls/hr IV ONETIME ONE Stop: 03/12/19 01:35 Last Admin: 03/12/19 01:14 Dose: 50 mls/hr Lactated Ringer's (Ringers, Lactated) 1,000 mls @ 999 drops/hr IV .BOLUS ONE Stop: 03/12/19 19:34 Last Admin: 03/12/19 04:39 Dose: 999 drops/hr Amiodarone HCl/Dextrose (Nexterone In Dextrose 360 Mg/200 Ml) 360 mg in 200 mls @ 33.333 mls/hr IV ASDIRECTED JASON; Protocol Stop: 03/12/19 13:16 Last Admin: 03/12/19 07:47 Dose: 1 mg/min, 33.333 mls/hr Amiodarone HCl/Dextrose 150 mg (/ Premix) 100 mls @ 400 mls/hr IV NOW ONE; Protocol Stop: 03/12/19 07:19 Last Admin: 03/12/19 07:29 Dose: 400 mls/hr Amiodarone HCl/Dextrose (Nexterone In Dextrose 360 Mg/200 Ml) 360 mg in 200 mls @ 16.667 mls/hr IV ASDIRECTED JASON; Protocol Stop: 03/13/19 13:18 Last Admin: 03/13/19 00:36 Dose: 0.5 mg/min, 16.667 mls/hr Diltiazem HCl 100 mg/ Sodium (Chloride) 100 mls @ 5 mls/hr IV CONTINUOUS JASON Sodium Chloride (Normal Saline) 500 mls @ 500 mls/hr IV .Bolus ONE Stop: 03/12/19 11:06 Last Admin: 03/12/19 10:28 Dose: 500 mls/hr Amiodarone HCl/Dextrose (Nexterone In Dextrose 360 Mg/200 Ml) 360 mg in 200 mls @ 33.333 mls/hr IV Q6H JASON; Protocol Last Infusion: 03/12/19 13:31 Dose: 0.5 mg/min, 16.667 mls/hr Amiodarone HCl/Dextrose (Nexterone In Dextrose 360 Mg/200 Ml) 360 mg in 200 mls @ 16.667 mls/hr IV ASDIRECTED JASON; Protocol Stop: 03/14/19 07:31 Iopamidol (Isovue Multipack-370 (76%)) 100 ml IVPUSH ONETIME ONE Stop: 03/14/19 10:11 Last Admin: 03/14/19 10:11 Dose: 100 ml Metoprolol Tartrate (Lopressor) 5 mg IVPUSH ONETIME ONE Stop: 03/11/19 22:19 Last Admin: 03/11/19 22:22 Dose: 5 mg Metoprolol Tartrate (Lopressor) 5 mg IVPUSH ONETIME ONE Stop: 03/12/19 07:01 Last Admin: 03/12/19 07:04 Dose: Not Given Phytonadione (Mephyton) 10 mg PO ONETIME ONE Stop: 03/13/19 21:57 Last Admin: 03/13/19 23:36 Dose: Not Given Phytonadione (Aquamephyton) 10 mg IM ONETIME ONE Stop: 03/13/19 22:46 Last Admin: 03/13/19 22:54 Dose: 10 mg Potassium Chloride (Klor-Con M20) 40 meq PO ONETIME ONE Stop: 03/11/19 22:16 Last Admin: 03/11/19 22:22 Dose: 40 meq Potassium Chloride (Klor-Con M20) 40 meq PO ONETIME ONE Stop: 03/14/19 08:08 Last Admin: 03/14/19 09:10 Dose: 40 meq - Problem List & Annotations (1) Atrial fibrillation with RVR SNOMED Code(s): 554856469357637 Code(s): I48.91 - UNSPECIFIED ATRIAL FIBRILLATION Status: Acute Priority : High Current Visit: Yes Annotation/Comment:: With RVR (2) Coumadin toxicity SNOMED Code(s): 40506937 Code(s): T45.511A - POISONING BY ANTICOAGULANTS, ACCIDENTAL, INIT Status: Acute Priority: High Current Visit: Yes Qualifiers: Encounter type: subsequent encounter Injury intent: accidental or unintentional Qualified Code(s): T45.511D - Poisoning by anticoagulants, accidental (unintentional), subsequent encounter (3) Nausea and vomiting SNOMED Code(s): 55029636 Code(s): R11.2 - NAUSEA WITH VOMITING, UNSPECIFIED Status: Resolved Priority: High Current Visit: Yes Qualifiers: Vomiting type: unspecified Vomiting Intractability: non-intractable Qualified Code(s): R11.2 - Nausea with vomiting, unspecified (4) Dehydration SNOMED Code(s): 08050780 Code(s): E86.0 - DEHYDRATION Status: Resolved Priority: High Current Visit: Yes - My Orders Last 24 Hours: My Active Orders 03/13/19 14:00 Telemetry Monitoring [Cardiac Monitoring] [RC] Q8H 03/13/19 22:45 Nicotine [Habitrol] 7 mg TRDERM DAILY 03/15/19 05:11 INR,PT,PROTHROMBIN TIME [COAG] AM
[2019-03-14] MEDS ORDERED: Iopamidol 755 MG/ML 200 ML Multipack Bottle IVPUSH ONE (10:10)
--- NOTE | 2019-03-14 10:35 | CT ---
CT of the abdomen and pelvis with and without contrast. HISTORY: Hematuria TECHNIQUE: Axial CT images were obtained of the abdomen and pelvis before and following administration of 100 mL of Isovue-370 in the left arm without complication. Coronal and sagittal reconstructions obtained. FINDINGS: There is a small right pleural effusion. The liver, spleen, adrenal glands, and pancreas appear normal. There is focal pericholecystic fluid noted within mild prominence of the common bile duct measuring up to 11 mm. No definitive filling defect noted. There is a tiny hiatal hernia. No bulky retroperitoneal lymphadenopathy or abdominal ascites. The kidneys enhance and function symmetrically without evidence of obstructive uropathy. No abnormal calcifications within the kidneys or along the courses of the ureters bilaterally. The large and small bowel are normal in caliber without evidence of obstruction. No focal pericolonic inflammation or stranding. The appendix is normal. No bulky pelvic lymphadenopathy. There is a trace free pelvic fluid. Urinary bladder is normal. Diverticulosis without definite diverticulitis. Small 1.9 cm right ovarian cyst. No suspicious osseous abnormalities identified. IMPRESSION: 1. Pericholecystic fluid and prominence of the common bile duct. Correlate for cholecystitis. 2. No evidence of nephrolithiasis or obstructive uropathy. 3. Diverticulosis.
--- NOTE | 2019-03-14 11:25 | PCM.DCSUM1 ---
<Josselyn Davila M - Last Filed: 03/14/19 13:02> Discharge Summary - Hospital Course Brief History: This a 68-year-old female with pmh of afib, on chronic anticoagulation, COPD, and smoker presented to the ED secondary to dizziness, weakness and fatigue. The patient says that she felt like her heart rate was going very fast. She took it at home and noticed that her heart rate was 170 bpm. The patient has been on Diltiazem and Coumadin for her atrial fibrillation and has been evaluated by cardiology in the past. The patient says that she has had 2 days worth of nausea and vomiting and has not been able to keep most of her medications down. She reports that she also has not been eating regularly. She has described some chest discomfort which does not radiate. Patient also says that she had an episode of diaphoresis. It was noted in the emergency department of the patient's INR was greater than 14. The patient has no other complaints at this time of the dizziness and lightheadedness when she sets up. Diagnosis: Stroke: No - Discharge Data Discharge Date: 03/14/19 Discharge Disposition: Home, Self-Care 01 Condition: Stable - Discharge Diagnosis/Problem(s) (1) Atrial fibrillation with RVR SNOMED Code(s): 372519827612223 ICD Code: I48.91 - UNSPECIFIED ATRIAL FIBRILLATION Status: Acute Priority : High Problem Details: With RVR (2) Supratherapeutic INR SNOMED Code(s): 734978508 ICD Code: R79.1 - ABNORMAL COAGULATION PROFILE Status: Acute (3) Gross hematuria SNOMED Code(s): 668884903 ICD Code: R31.0 - GROSS HEMATURIA Status: Acute (4) Dehydration SNOMED Code(s): 51370697 ICD Code: E86.0 - DEHYDRATION Status: Resolved Priority: High (5) Nausea and vomiting SNOMED Code(s): 66250472 ICD Code: R11.2 - NAUSEA WITH VOMITING, UNSPECIFIED Status: Resolved Priority: High Qualifiers: Vomiting type: unspecified Vomiting Intractability: non-intractable Qualified Code(s): R11.2 - Nausea with vomiting, unspecified (6) Smoker SNOMED Code(s): 02713271 ICD Code: F17.200 - NICOTINE DEPENDENCE, UNSPECIFIED, UNCOMPLICATED Status : Chronic (7) Hx of hepatitis C SNOMED Code(s): 19805520339250, 85820109185226 ICD Code: Z86.19 - PERSONAL HISTORY OF OTHER INFECTIOUS AND PARASITIC DISEASES Status: Chronic - Patient Instructions Diet: Heart Healthy Diet Activity: As Tolerated Showering/Bathing: May Shower Notify Provider of: Fever, Increased Pain, Swelling and Redness, Drainage, Nausea and/or Vomiting - Discharge Plan *PRESCRIPTION DRUG MONITORING PROGRAM REVIEWED*: Not Applicable *COPY OF PRESCRIPTION DRUG MONITORING REPORT IN PATIENT DI: Not Applicable Prescriptions/Med Rec: Amiodarone [Cordarone] 200 mg PO BID #60 tablet Home Medications: Home Meds Ascorbic Acid [Vitamin C] 1 tab PO DAILY 07/29/16 [History] Multivitamin [Multivitamins] 1 tab PO DAILY 07/29/16 [History] Benzonatate [Tessalon Perles] 100 mg PO TID PRN #30 cap 09/07/16 [Rx] Magnesium Oxide 400 mg PO BID #30 tablet 09/07/16 [Rx] Glycopyrrolate/Formoterol Fum [Bevespi Aerosphere Inhaler] 10.7 gm INH DAILY [History] Amiodarone [Cordarone] 200 mg PO BID #60 tablet 03/14/19 [Rx] Warfarin [Coumadin] 2.5 mg PO DAILY #0 03/14/19 [Rx] Oxygen Therapy Mode: Room Air Patient Handouts: Amiodarone tablets, Atrial Fibrillation, [id number] Referrals: Noelle Rivera MD [Physician] - 03/24/19 2:30 pm Jeovanny Albrecht MD [Physician] - 03/30/19 1:30 am - Discharge Summary/Plan Comment DC Time >30 min.: No Discharge Summary/Plan Comment: Admitting diagnoses: Afib RVR supratherapeutic INR, no bleeding Discharge Diagnoses: Afib, converted to SR Anticoagulation with Coumadin, INR 3 Hematuria Other PMH COPD Smoker Elda was admitted to ICU due to Afib with RVR, she was placed on Diltiazem drip, she continued to remain tachycardic and in afib. She was started on Amiodarone drip. She then converted to SR and was started on Amiodarone 200 mg BID. INR was not treated initially, as no active bleeding was noted. INR decreased to 9. Then overnight 03/13 she developed hematuria and was given 10 mg Vitamin K IM. INR today is 3. Hematuria slowly improving today. CT abdomen/ pelvis to evaluate hematuria was obtained this morning, negative for nephrolithiasis or renal mass. Bladder appeared normal. Repeat UA obtained, which was negative for infection. Gross hematuria improving as INR improved. She will be discharged home today, repeat INR on Thursday, Dr Albrecht's nurse updated on admission and testing on Thursday. She is to take Warfarin 2.5 mg daily until told otherwise by Dr Albrecht. Return to the ED or clinic if concerns should arise or bleeding worsens again. She will be sent home with Amiodarone 200 mg BID and to stop Diltiazem. She is to follow up with Dr Albrecht in 1 week [address] Dr Rivera. - General Info Date of Service: 03/14/19 Admission Dx/Problem (Free Text: Afib/RVR hematuria Subjective Update: Doing well, requesting discharge home. She is eating well drinking well. No abdominal pain. No chest pain or palpitations. Hematuria is continuing to improve urine is now light pink. No other concerns. Functional Status: Reports: Pain Controlled, Tolerating Diet, Ambulating, Urinating - Review of Systems General: Reports: No Symptoms. Denies: Weakness, Fatigue, Malaise Pulmonary: Reports: No Symptoms. Denies: Shortness of Breath Cardiovascular: Reports: No Symptoms. Denies: Chest Pain, Dyspnea on Exertion, Edema Gastrointestinal: Reports: No Symptoms. Denies: Abdominal Pain, Nausea, Vomiting Genitourinary: Reports: Hematuria (light pink now compared to dark red earlies) Musculoskeletal: Reports: No Symptoms Skin: Reports: No Symptoms Neurological: Reports: No Symptoms Psychiatric: Reports: No Symptoms - Patient Data Vitals - Most Recent: Last Vital Signs Temp 98.7 F 03/14/19 08:00 Pulse 84 03/14/19 08:00 Resp 18 03/14/19 08:00 BP 137/80 03/14/19 08:00 Pulse Ox 93 L 03/14/19 08:00 Weight - Most Recent: 65.453 kg I&O - Last 24 hours: Intake & Output 03/13/19 03/14/19 03/14/19 22:59 06:59 14:59 Intake Total 350 240 Output Total 0 520 Balance 350 -280 Lab Results - Last 24 hrs: Laboratory Results - last 24 hr 03/13/19 03/14/19 03/14/19 Range/Units 14:54 05:32 05:32 WBC 8.39 (4.0-11.0) K/uL RBC 3.72 L (4.30-5.90) M/uL Hgb 11.0 L (12.0-16.0) g/dL Hct 34.1 L (36.0-46.0) % MCV 91.7 (80.0-98.0) fL MCH 29.6 (27.0-32.0) pg MCHC 32.3 (31.0-37.0) g/dL RDW Std Deviation 54.7 (28.0-62.0) fl RDW Coeff of Nilay 17 H (11.0-15.0) % Plt Count 126 L (150-400) K/uL MPV 10.00 (7.40-12.00) fL Nucleated RBC % 0.0 /100WBC Nucleated RBCs # 0 K/uL INR 3.02 Sodium 134 L (136-145) mmol/L Potassium 3.7 (3.5-5.1) mmol/L Chloride 102 (98-107) mmol/L Carbon Dioxide 25.3 (21.0-32.0) mmol/L BUN 7 (7.0-18.0) mg/dL Creatinine 0.7 (0.6-1.0) mg/dL Est Cr Clr Drug Dosing 71.14 mL/min Estimated GFR (MDRD) > 60.0 ml/min Glucose 118 H (74-106) mg/dL Calcium 8.3 L (8.5-10.1) mg/dL 03/14/19 Range/Units 05:32 WBC 10.61 (4.0-11.0) K/uL RBC 3.60 L (4.30-5.90) M/uL Hgb 10.6 L (12.0-16.0) g/dL Hct 32.9 L (36.0-46.0) % MCV 91.4 (80.0-98.0) fL MCH 29.4 (27.0-32.0) pg MCHC 32.2 (31.0-37.0) g/dL RDW Std Deviation 54.5 (28.0-62.0) fl RDW Coeff of Nilay 17 H (11.0-15.0) % Plt Count 120 L (150-400) K/uL MPV 10.30 (7.40-12.00) fL Nucleated RBC % 0.0 /100WBC Nucleated RBCs # 0 K/uL INR Sodium (136-145) mmol/L Potassium (3.5-5.1) mmol/L Chloride (98-107) mmol/L Carbon Dioxide (21.0-32.0) mmol/L BUN (7.0-18.0) mg/dL Creatinine (0.6-1.0) mg/dL Est Cr Clr Drug Dosing mL/min Estimated GFR (MDRD) ml/min Glucose (74-106) mg/dL Calcium (8.5-10.1) mg/dL Med Orders - Current: Current Medications Acetaminophen (Tylenol) 650 mg PO Q4H PRN PRN Reason: Pain (Mild 1-3)/fever Last Admin: 03/13/19 08:50 Dose: 650 mg Amiodarone HCl (Cordarone) 200 mg PO BID [facility] Last Admin: 03/14/19 09:10 Dose: 200 mg Magnesium Oxide (Magnesium Oxide) 400 mg PO BID [facility] Last Admin: 03/14/19 09:10 Dose: 400 mg Nicotine (Habitrol) 7 mg TRDERM DAILY [facility] Last Admin: 03/14/19 09:11 Dose: Not Given Non-Formulary Medication (Glycopyrrolate/Formoterol Fum [Bevespi Aerosphere Inhaler]) 10.7 gm INH DAILY [facility] Last Admin: 03/14/19 09:11 Dose: Not Given Oxycodone HCl (Oxycodone) 5 mg PO Q4H PRN PRN Reason: Pain (moderate 4-6) Last Admin: 03/13/19 22:23 Dose: 5 mg Sodium Chloride (Saline Flush) 10 ml FLUSH ASDIRECTED PRN PRN Reason: Keep Vein Open Last Admin: 03/11/19 21:55 Dose: 10 ml Sodium Chloride (Saline Flush) 2.5 ml FLUSH ASDIRECTED PRN PRN Reason: Keep Vein Open Last Admin: 03/11/19 21:55 Dose: 2.5 ml Warfarin Sodium (Coumadin) 2.5 mg PO DAILY@1400 JASON Discontinued Medications Amiodarone HCl (Cordarone) 400 mg PO BID JASON Bismuth Subsalicylate (Pepto Bismol) 30 ml PO ONETIME ONE Stop: 03/12/19 02:22 Last Admin: 03/12/19 02:34 Dose: 30 ml Diltiazem HCl (Diltiazem) 10 mg IVPUSH ONETIME ONE Stop: 03/11/19 21:37 Last Admin: 03/11/19 21:53 Dose: 10 mg Diltiazem HCl (Diltiazem) 10 mg IVPUSH ONETIME ONE Stop: 03/11/19 22:06 Last Admin: 03/11/19 22:06 Dose: 10 mg Diltiazem HCl (Cardizem Cd) 120 mg PO DAILY [facility] Last Admin: 03/13/19 08:51 Dose: Not Given Sodium Chloride (Normal Saline) 1,000 mls @ 75 mls/hr IV ASDIRECTED JASON Last Admin: 03/13/19 02:04 Dose: 75 mls/hr Diltiazem HCl 125 mg/ Sodium (Chloride) 125 mls @ 5 mls/hr IV NOW JASON; Protocol Diltiazem HCl 100 mg/ Sodium (Chloride) 100 mls @ 5 mls/hr IV CONTINUOUS JASON Last Infusion: 03/12/19 04:00 Dose: 2.5 mls/hr Sodium Chloride (Normal Saline) Confirm Administered Dose 100 mls @ as directed .ROUTE .STK-MED ONE Stop: 03/11/19 22:26 Last Admin: 03/11/19 22:32 Dose: Not Given Magnesium Sulfate 2 gm/ Premix 50 mls @ 50 mls/hr IV ONETIME ONE Stop: 03/12/19 01:35 Last Admin: 03/12/19 01:14 Dose: 50 mls/hr Lactated Ringer's (Ringers, Lactated) 1,000 mls @ 999 drops/hr IV .BOLUS ONE Stop: 03/12/19 19:34 Last Admin: 03/12/19 04:39 Dose: 999 drops/hr Amiodarone HCl/Dextrose (Nexterone In Dextrose 360 Mg/200 Ml) 360 mg in 200 mls @ 33.333 mls/hr IV ASDIRECTED JASON; Protocol Stop: 03/12/19 13:16 Last Admin: 03/12/19 07:47 Dose: 1 mg/min, 33.333 mls/hr Amiodarone HCl/Dextrose 150 mg (/ Premix) 100 mls @ 400 mls/hr IV NOW ONE; Protocol Stop: 03/12/19 07:19 Last Admin: 03/12/19 07:29 Dose: 400 mls/hr Amiodarone HCl/Dextrose (Nexterone In Dextrose 360 Mg/200 Ml) 360 mg in 200 mls @ 16.667 mls/hr IV ASDIRECTED JASON; Protocol Stop: 03/13/19 13:18 Last Admin: 03/13/19 00:36 Dose: 0.5 mg/min, 16.667 mls/hr Diltiazem HCl 100 mg/ Sodium (Chloride) 100 mls @ 5 mls/hr IV CONTINUOUS JASON Sodium Chloride (Normal Saline) 500 mls @ 500 mls/hr IV .Bolus ONE Stop: 03/12/19 11:06 Last Admin: 03/12/19 10:28 Dose: 500 mls/hr Amiodarone HCl/Dextrose (Nexterone In Dextrose 360 Mg/200 Ml) 360 mg in 200 mls @ 33.333 mls/hr IV Q6H JASON; Protocol Last Infusion: 03/12/19 13:31 Dose: 0.5 mg/min, 16.667 mls/hr Amiodarone HCl/Dextrose (Nexterone In Dextrose 360 Mg/200 Ml) 360 mg in 200 mls @ 16.667 mls/hr IV ASDIRECTED JASON; Protocol Stop: 03/14/19 07:31 Iopamidol (Isovue Multipack-370 (76%)) 100 ml IVPUSH ONETIME ONE Stop: 03/14/19 10:11 Last Admin: 03/14/19 10:11 Dose: 100 ml Metoprolol Tartrate (Lopressor) 5 mg IVPUSH ONETIME ONE Stop: 03/11/19 22:19 Last Admin: 03/11/19 22:22 Dose: 5 mg Metoprolol Tartrate (Lopressor) 5 mg IVPUSH ONETIME ONE Stop: 03/12/19 07:01 Last Admin: 03/12/19 07:04 Dose: Not Given Phytonadione (Mephyton) 10 mg PO ONETIME ONE Stop: 03/13/19 21:57 Last Admin: 03/13/19 23:36 Dose: Not Given Phytonadione (Aquamephyton) 10 mg IM ONETIME ONE Stop: 03/13/19 22:46 Last Admin: 03/13/19 22:54 Dose: 10 mg Potassium Chloride (Klor-Con M20) 40 meq PO ONETIME ONE Stop: 03/11/19 22:16 Last Admin: 03/11/19 22:22 Dose: 40 meq Potassium Chloride (Klor-Con M20) 40 meq PO ONETIME ONE Stop: 03/14/19 08:08 Last Admin: 03/14/19 09:10 Dose: 40 meq - Exam General: Reports: Alert, Oriented, Cooperative Lungs: Reports: Clear to Auscultation, Normal Respiratory Effort Cardiovascular: Reports: Regular Rate, Regular Rhythm, No Murmurs GI/Abdominal Exam: Normal Bowel Sounds, Soft, Non-Tender, No Organomegaly, No Mass. No: Guarding, Rigid Back Exam: Reports: Normal Inspection, Full Range of Motion Extremities: Normal Inspection, Normal Range of Motion, Non-Tender, No Pedal Edema Neurological: Reports: No New Focal Deficit Psy/Mental Status: Reports: Alert, Normal Affect, Normal Mood *Q Meaningful Use (DIS) - VTE *Q VTE Pharmacological Contraindications *Q: High INR Value <Ari Vincent - Last Filed: 03/14/19 17:07> Discharge Summary - Hospital Course HPI Initial Comments: I have seen and examined to patient independently of Josselyn Davila CNP. I have discussed the case for care of this patient with her. I have reviewed and approve of the plan of care as outlined by her. Please see orders. - Discharge Diagnosis/Problem(s) (1) Atrial fibrillation with RVR SNOMED Code(s): 180407976213458 ICD Code: I48.91 - UNSPECIFIED ATRIAL FIBRILLATION Status: Acute Priority : High Problem Details: With RVR (2) Coumadin toxicity SNOMED Code(s): 82335205 ICD Code: T45.511A - POISONING BY ANTICOAGULANTS, ACCIDENTAL, INIT Status: Acute Priority: High Qualifiers: Encounter type: subsequent encounter Injury intent: accidental or unintentional Qualified Code(s): T45.511D - Poisoning by anticoagulants, accidental (unintentional), subsequent encounter (3) Nausea and vomiting SNOMED Code(s): 67074212 ICD Code: R11.2 - NAUSEA WITH VOMITING, UNSPECIFIED Status: Resolved Priority: High Qualifiers: Vomiting type: unspecified Vomiting Intractability: non-intractable Qualified Code(s): R11.2 - Nausea with vomiting, unspecified (4) Dehydration SNOMED Code(s): 85650903 ICD Code: E86.0 - DEHYDRATION Status: Resolved Priority: High - Patient Data Vitals - Most Recent: Last Vital Signs Temp 37.1 C 03/14/19 08:00 Pulse 84 03/14/19 08:00 Resp 18 03/14/19 08:00 BP 137/80 03/14/19 08:00 Pulse Ox 93 L 03/14/19 08:00 I&O - Last 24 hours: Intake & Output 03/14/19 03/14/19 03/14/19 06:59 14:59 22:59 Intake Total 240 600 Output Total 520 800 Balance -280 -200 Lab Results - Last 24 hrs: Laboratory Results - last 24 hr 03/14/19 03/14/19 03/14/19 Range/Units 05:32 05:32 05:32 WBC 10.61 (4.0-11.0) K/uL RBC 3.60 L (4.30-5.90) M/uL Hgb 10.6 L (12.0-16.0) g/dL Hct 32.9 L (36.0-46.0) % MCV 91.4 (80.0-98.0) fL MCH 29.4 (27.0-32.0) pg MCHC 32.2 (31.0-37.0) g/dL RDW Std Deviation 54.5 (28.0-62.0) fl RDW Coeff of Nilay 17 H (11.0-15.0) % Plt Count 120 L (150-400) K/uL MPV 10.30 (7.40-12.00) fL Nucleated RBC % 0.0 /100WBC Nucleated RBCs # 0 K/uL INR 3.02 Sodium 134 L (136-145) mmol/L Potassium 3.7 (3.5-5.1) mmol/L Chloride 102 (98-107) mmol/L Carbon Dioxide 25.3 (21.0-32.0) mmol/L BUN 7 (7.0-18.0) mg/dL Creatinine 0.7 (0.6-1.0) mg/dL Est Cr Clr Drug Dosing 71.14 mL/min Estimated GFR (MDRD) > 60.0 ml/min Glucose 118 H (74-106) mg/dL Calcium 8.3 L (8.5-10.1) mg/dL Urine Color Urine Appearance Urine pH Ur Specific [place] Urine Protein Urine Glucose (UA) Urine Ketones Urine Occult Blood Urine Nitrite Urine Bilirubin Urine Ictotest Urine Urobilinogen Ur Leukocyte Esterase Urine RBC Urine WBC Ur Epithelial Cells Ur Squamous Epith Cells Ur Renal Epithelial Cell Calcium Oxalate Crystal Uric Acid Crystals Triple Phos Crystals Other Crystals Amorphous Sediment Urine Bacteria Hyaline Casts Fine Granular Casts Coarse Granular Casts Waxy Casts RBC Casts WBC Casts Urine Mucus Urine Other Urine Trichomonas Urine Yeast Urine Sperm Ur Oval Fat Bodies Urinalysis Comment 03/14/19 03/14/19 Range/Units 11:10 11:10 WBC (4.0-11.0) K/uL RBC (4.30-5.90) M/uL Hgb (12.0-16.0) g/dL Hct (36.0-46.0) % MCV (80.0-98.0) fL MCH (27.0-32.0) pg MCHC (31.0-37.0) g/dL RDW Std Deviation (28.0-62.0) fl RDW Coeff of Nilay (11.0-15.0) % Plt Count (150-400) K/uL MPV (7.40-12.00) fL Nucleated RBC % /100WBC Nucleated RBCs # K/uL INR Sodium (136-145) mmol/L Potassium (3.5-5.1) mmol/L Chloride (98-107) mmol/L Carbon Dioxide (21.0-32.0) mmol/L BUN (7.0-18.0) mg/dL Creatinine (0.6-1.0) mg/dL Est Cr Clr Drug Dosing mL/min Estimated GFR (MDRD) ml/min Glucose (74-106) mg/dL Calcium (8.5-10.1) mg/dL Urine Color Cancelled PINK Urine Appearance Cancelled CLOUDY Urine pH Cancelled 8.0 Ur Specific [place] Cancelled 1.010 Urine Protein Cancelled NEGATIVE Urine Glucose (UA) Cancelled NEGATIVE Urine Ketones Cancelled NEGATIVE Urine Occult Blood Cancelled LARGE H Urine Nitrite Cancelled NEGATIVE Urine Bilirubin Cancelled NEGATIVE Urine Ictotest Cancelled Urine Urobilinogen Cancelled 0.2 Ur Leukocyte Esterase Cancelled NEGATIVE Urine RBC Cancelled 120-150 Urine WBC Cancelled 0-2 Ur Epithelial Cells Cancelled RARE Ur Squamous Epith Cells Cancelled Ur Renal Epithelial Cell Cancelled Calcium Oxalate Crystal Cancelled Uric Acid Crystals Cancelled Triple Phos Crystals Cancelled Other Crystals Cancelled Amorphous Sediment Cancelled Urine Bacteria Cancelled NOT SEEN Hyaline Casts Cancelled Fine Granular Casts Cancelled Coarse Granular Casts Cancelled Waxy Casts Cancelled RBC Casts Cancelled WBC Casts Cancelled Urine Mucus Cancelled Urine Other Cancelled Urine Trichomonas Cancelled Urine Yeast Cancelled Urine Sperm Cancelled Ur Oval Fat Bodies Cancelled Urinalysis Comment Cancelled Med Orders - Current: Current Medications Discontinued Medications Acetaminophen (Tylenol) 650 mg PO Q4H PRN PRN Reason: Pain (Mild 1-3)/fever Last Admin: 03/13/19 08:50 Dose: 650 mg Amiodarone HCl (Cordarone) 400 mg PO BID [facility] Amiodarone HCl (Cordarone) 200 mg PO BID [facility] Last Admin: 03/14/19 09:10 Dose: 200 mg Bismuth Subsalicylate (Pepto Bismol) 30 ml PO ONETIME ONE Stop: 03/12/19 02:22 Last Admin: 03/12/19 02:34 Dose: 30 ml Diltiazem HCl (Diltiazem) 10 mg IVPUSH ONETIME ONE Stop: 03/11/19 21:37 Last Admin: 03/11/19 21:53 Dose: 10 mg Diltiazem HCl (Diltiazem) 10 mg IVPUSH ONETIME ONE Stop: 03/11/19 22:06 Last Admin: 03/11/19 22:06 Dose: 10 mg Diltiazem HCl (Cardizem Cd) 120 mg PO DAILY [facility] Last Admin: 03/13/19 08:51 Dose: Not Given Sodium Chloride (Normal Saline) 1,000 mls @ 75 mls/hr IV ASDIRECTED [facility] Last Admin: 03/13/19 02:04 Dose: 75 mls/hr Diltiazem HCl 125 mg/ Sodium (Chloride) 125 mls @ 5 mls/hr IV NOW JASON; Protocol Diltiazem HCl 100 mg/ Sodium (Chloride) 100 mls @ 5 mls/hr IV CONTINUOUS JASON Last Infusion: 03/12/19 04:00 Dose: 2.5 mls/hr Sodium Chloride (Normal Saline) Confirm Administered Dose 100 mls @ as directed .ROUTE .STK-MED ONE Stop: 03/11/19 22:26 Last Admin: 03/11/19 22:32 Dose: Not Given Magnesium Sulfate 2 gm/ Premix 50 mls @ 50 mls/hr IV ONETIME ONE Stop: 03/12/19 01:35 Last Admin: 03/12/19 01:14 Dose: 50 mls/hr Lactated Ringer's (Ringers, Lactated) 1,000 mls @ 999 drops/hr IV .BOLUS ONE Stop: 03/12/19 19:34 Last Admin: 03/12/19 04:39 Dose: 999 drops/hr Amiodarone HCl/Dextrose (Nexterone In Dextrose 360 Mg/200 Ml) 360 mg in 200 mls @ 33.333 mls/hr IV ASDIRECTED JASON; Protocol Stop: 03/12/19 13:16 Last Admin: 03/12/19 07:47 Dose: 1 mg/min, 33.333 mls/hr Amiodarone HCl/Dextrose 150 mg (/ Premix) 100 mls @ 400 mls/hr IV NOW ONE; Protocol Stop: 03/12/19 07:19 Last Admin: 03/12/19 07:29 Dose: 400 mls/hr Amiodarone HCl/Dextrose (Nexterone In Dextrose 360 Mg/200 Ml) 360 mg in 200 mls @ 16.667 mls/hr IV ASDIRECTED JASON; Protocol Stop: 03/13/19 13:18 Last Admin: 03/13/19 00:36 Dose: 0.5 mg/min, 16.667 mls/hr Diltiazem HCl 100 mg/ Sodium (Chloride) 100 mls @ 5 mls/hr IV CONTINUOUS JASON Sodium Chloride (Normal Saline) 500 mls @ 500 mls/hr IV .Bolus ONE Stop: 03/12/19 11:06 Last Admin: 03/12/19 10:28 Dose: 500 mls/hr Amiodarone HCl/Dextrose (Nexterone In Dextrose 360 Mg/200 Ml) 360 mg in 200 mls @ 33.333 mls/hr IV Q6H JASON; Protocol Last Infusion: 03/12/19 13:31 Dose: 0.5 mg/min, 16.667 mls/hr Amiodarone HCl/Dextrose (Nexterone In Dextrose 360 Mg/200 Ml) 360 mg in 200 mls @ 16.667 mls/hr IV ASDIRECTED JASON; Protocol Stop: 03/14/19 07:31 Iopamidol (Isovue Multipack-370 (76%)) 100 ml IVPUSH ONETIME ONE Stop: 03/14/19 10:11 Last Admin: 03/14/19 10:11 Dose: 100 ml Magnesium Oxide (Magnesium Oxide) 400 mg PO BID [facility] Last Admin: 03/14/19 09:10 Dose: 400 mg Metoprolol Tartrate (Lopressor) 5 mg IVPUSH ONETIME ONE Stop: 03/11/19 22:19 Last Admin: 03/11/19 22:22 Dose: 5 mg Metoprolol Tartrate (Lopressor) 5 mg IVPUSH ONETIME ONE Stop: 03/12/19 07:01 Last Admin: 03/12/19 07:04 Dose: Not Given Nicotine (Habitrol) 7 mg TRDERM DAILY [facility] Last Admin: 03/14/19 09:11 Dose: Not Given Non-Formulary Medication (Glycopyrrolate/Formoterol Fum [Bevespi Aerosphere Inhaler]) 10.7 gm INH DAILY [facility] Last Admin: 03/14/19 09:11 Dose: Not Given Oxycodone HCl (Oxycodone) 5 mg PO Q4H PRN PRN Reason: Pain (moderate 4-6) Last Admin: 03/13/19 22:23 Dose: 5 mg Phytonadione (Mephyton) 10 mg PO ONETIME ONE Stop: 03/13/19 21:57 Last Admin: 03/13/19 23:36 Dose: Not Given Phytonadione (Aquamephyton) 10 mg IM ONETIME ONE Stop: 03/13/19 22:46 Last Admin: 03/13/19 22:54 Dose: 10 mg Potassium Chloride (Klor-Con M20) 40 meq PO ONETIME ONE Stop: 03/11/19 22:16 Last Admin: 03/11/19 22:22 Dose: 40 meq Potassium Chloride (Klor-Con M20) 40 meq PO ONETIME ONE Stop: 03/14/19 08:08 Last Admin: 03/14/19 09:10 Dose: 40 meq Sodium Chloride (Saline Flush) 10 ml FLUSH ASDIRECTED PRN PRN Reason: Keep Vein Open Last Admin: 03/11/19 21:55 Dose: 10 ml Sodium Chloride (Saline Flush) 2.5 ml FLUSH ASDIRECTED PRN PRN Reason: Keep Vein Open Last Admin: 03/11/19 21:55 Dose: 2.5 ml Warfarin Sodium (Coumadin) 2.5 mg PO DAILY@1400 JASON
[2019-03-14] MEDS ORDERED: Warfarin 2.5 MG Tab PO SCH (14:00)
== END 2019-03-14 12:20 | disposition home or self-care (01) ==
LOC: MW.ED 21:20 → MW.ICU 22:59 → MW.MS 03-13 12:31
PROVIDERS: ADMIT Internal Medicine; ATTEND Internal Medicine
DX: I48.91 Unspecified atrial fibrillation (principal); T45.511A Poisoning by anticoagulants, accidental (unintentional), initial encounter; R11.2 Nausea with vomiting, unspecified; J44.9 Chronic obstructive pulmonary disease, unspecified; R79.1 Abnormal coagulation profile; R31.0 Gross hematuria; E86.0 Dehydration; F41.9 Anxiety disorder, unspecified; F32.9 Major depressive disorder, single episode, unspecified; F17.210 Nicotine dependence, cigarettes, uncomplicated; Z86.19 Personal history of other infectious and parasitic diseases; Z88.2 Allergy status to sulfonamides; Z79.01 Long term (current) use of anticoagulants; Z79.899 Other long term (current) drug therapy
CPT/HCPCS: 36415; 71045; 74178; 80048; 80053; 81001; 82962; 83735; 84439; 84443; 84484; 85025; 85027; 85610; 86376; 93005; 93306; 96365; 96375; 96376; 99285; A4217; A9270; J0282; J3430; J3475; J3490; J7030; J7040; J7120; Q9967; 96361; 96366; 96367; 96372; G0378

== ENCOUNTER 2019-07-01 09:51 | Inpatient (IN) | payer MEDICARE, MEDICAID ==
[2019-07-01] MEDS ORDERED: Sodium Chloride 0.9% 10 ML Syringe FLUSH PRN (10:03)
[2019-07-01] MEDS ORDERED: Sodium Chloride 0.9% 2.5 ML Syringe FLUSH PRN (10:03)
[2019-07-01] MEDS ORDERED: Sodium Chloride 0.9% 1,000 ML IV ONE (10:03)
[2019-07-01] MEDS ORDERED: Ondansetron 4 MG/2 ML SDV IVPUSH ONE (10:03)
[2019-07-01] MEDS ORDERED: Diltiazem 25 MG/5 ML SDV IVPUSH ONE ×3 (10:35→15:37)
[2019-07-01] MEDS ORDERED: Metoclopramide 10 MG/2 ML SDV IV ONE (10:39)
[2019-07-01] MEDS ORDERED: Diltiazem 25 MG/5 ML SDV ONE (10:47)
[2019-07-01 10:53] LABS: CARBON DIOXIDE,CO2 17.6 mmol/L (21.0-32.0); POTASSIUM,K 3.4 mmol/L (3.5-5.1)
--- NOTE | 2019-07-01 11:04 | CT ---
HISTORY: Fall, vomiting. Patient on blood thinners. TECHNIQUE: Noncontrast head CT. COMPARISON: No prior. FINDINGS: There is no acute intracranial hemorrhage or acute ischemic infarct. No mass effect or midline shift. No hydrocephalus. No acute loss of saunders-white differentiation. Minimal periventricular white matter low attenuation may relate to chronic small vessel ischemic changes. The mastoid air cells are clear. Mild mucosal thickening involving the right maxillary sinus. No acute skull fracture. IMPRESSION: No acute intracranial disease. Dictated by Lisandro Mcgee MD @ 07/01/2019 11:03:23 AM Please note that all CT scans at this facility use dose modulation, iterative reconstruction, and/or weight-based dosing when appropriate to reduce radiation dose to as low as reasonably achievable. Dictated by: Lisandro Mcgee MD @ 07/01/2019 11:03:25 (Electronically Signed)
--- NOTE | 2019-07-01 11:08 | EDM.PDOC ---
ED HPI GENERAL MEDICAL PROBLEM - General Chief Complaint: Gastrointestinal Problem Stated Complaint: SICK Time Seen by Provider: 07/01/19 10:01 Source of Information: Reports: Patient, EMS History Limitations: Reports: No Limitations - History of Present Illness INITIAL COMMENTS - FREE TEXT/NARRATIVE: History of present illness: []She was brought in by EMS after falling from a syncopal episode and having nausea and vomiting. Patient is on Coumadin for A. fib in a trauma alert was called. She arrived with a heart rate of 71, however, while in the ED she converted to A. fib with RVR which she has had in the past. Review of systems: As per history of present illness and below otherwise all systems reviewed and negative. Past medical history: As per history of present illness and as reviewed below otherwise noncontributory. Surgical history: As per history of present illness and as reviewed below otherwise noncontributory. Social history: No reported history of drug or alcohol abuse. Family history: As per history of present illness and as reviewed below otherwise noncontributory. Physical exam: General: Well developed, well nourished in NAD HEENT: Atraumatic, normocephalic, pupils reactive, negative for conjunctival pallor or scleral icterus, mucous membranes moist, throat clear, neck supple, nontender, trachea midline. Lungs: Clear to auscultation, breath sounds equal bilaterally, chest nontender. Heart: S1S2, regular, negative for clicks, rubs, or JVD. Abdomen: NABS, Soft, nondistended, nontender. Negative for masses or hepatosplenomegaly. Negative for costovertebral tenderness. Pelvis: Stable nontender. Genitourinary: Deferred. Rectal: Deferred. Extremities: Atraumatic, negative for cords or calf pain. Neurovascular unremarkable. Neuro: Awake, alert, oriented. Cranial nerves II through XII unremarkable. Cerebellum unremarkable. Motor and sensory unremarkable throughout. Exam nonfocal. Skin:warm and dry Diagnostics: EKG, head CT-for bleed or fracture, chest x-ray, CBC, chemistry, troponin, lipase, UA ,INR Therapeutics: Diltiazem, Zofran, Reglan diltiazem drip started in the ED ED Course: She remained in A. fib with RVR, admit ICU on diltiazem drip Impression: Atrial fibrillation w/ RVR, Prescriptions: none Plan: Definitive disposition and diagnosis as appropriate pending reevaluation and review of above. - Related Data Allergies Allergy/AdvReac Type Severity Reaction Status Date / Time Sulfa (Sulfonamide Allergy Hives Verified 07/01/19 12:58 Antibiotics) Home Meds: Home Meds Ascorbic Acid [Vitamin C] 1 tab PO DAILY 07/29/16 [History] Multivitamin [Multivitamins] 1 tab PO DAILY 07/29/16 [History] Benzonatate [Tessalon Perles] 100 mg PO TID PRN #30 cap 09/07/16 [Rx] Magnesium Oxide 400 mg PO BID #30 tablet 09/07/16 [Rx] Glycopyrrolate/Formoterol Fum [Bevespi Aerosphere Inhaler] 10.7 gm INH DAILY [History] Amiodarone [Cordarone] 200 mg PO BID #60 tablet 03/14/19 [Rx] Warfarin [Coumadin] 2.5 mg PO DAILY #0 03/14/19 [Rx] Past Medical History HEENT History: Reports: Allergic Rhinitis, Cataract Other HEENT History: wears glasses, has top denture and bottom partial Cardiovascular History: Reports: Afib Respiratory History: Reports: None, Other (See Below) 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 Gastrointestinal History: Reports: Hepatitis Other Gastrointestinal History: hx hepatitis C Genitourinary History: Reports: None Musculoskeletal History: Reports: None Neurological History: Reports: None Psychiatric History: Reports: Anxiety, Depression Endocrine/Metabolic History: Reports: None Hematologic History: Reports: Blood Transfusion(s) Immunologic History: Reports: None Oncologic (Cancer) History: Reports: None Dermatologic History: Reports: None - Infectious Disease History Infectious Disease History: Reports: Hepatitis C - Past Surgical History Head Surgeries/Procedures: Reports: None HEENT Surgical History: Reports: Adenoidectomy, Naso-Sinus Surgery, Tonsillectomy Other Female Surgeries/Procedures: states she had her "ureters stretched" as a child Musculoskeletal Surgical History: Reports: Arthroscopic Knee, Shoulder Surgery Social & Family History - Family History Family Medical History: Noncontributory - Tobacco Use Smoking Status *Q: Current Every Day Smoker Years of Tobacco use: 50 Packs/Tins Daily: 1 - Caffeine Use Caffeine Use: Reports: Coffee - Recreational Drug Use Recreational Drug Use: No ED ROS GENERAL - Review of Systems Review Of Systems: ROS reveals no pertinent complaints other than HPI. ED EXAM, GENERAL - Physical Exam Exam: See Below Course - Vital Signs Last Recorded V/S: Last Vital Signs Temp 98.3 F 07/01/19 15:49 Pulse 135 H 07/01/19 15:49 Resp 20 07/01/19 15:49 BP 126/75 07/01/19 15:49 Pulse Ox 93 L 07/01/19 15:49 - Orders/Labs/Meds Orders: Active Orders 24 hr Category Date Time Status Admission Status [Patient Status] [ADT] Stat ADT 07/01/19 12:13 Active Cardiac Monitoring [RC] . DIRECTED Care 07/01/19 10:42 Active UA W/MICROSCOPIC [URIN] Stat Lab 07/01/19 10:04 Ordered Diltiazem 125 mg Med 07/01/19 11:15 Active Sodium Chloride 0.9% [Normal Saline] 100 ml IV NOW Sodium Chloride 0.9% [Saline Flush] Med 07/01/19 10:03 Active 10 ml FLUSH ASDIRECTED PRN Sodium Chloride 0.9% [Saline Flush] Med 07/01/19 10:03 Active 2.5 ml FLUSH ASDIRECTED PRN Saline Lock Insert [OM.PC] Stat Oth 07/01/19 10:02 Ordered Medication Orders Diltiazem HCl (Cardizem) 30 mg PO Q6HR JASON Last Admin: 07/01/19 14:19 Dose: 30 mg Folic Acid (Folic Acid) 1 mg SUBCUT DAILY JASON Diltiazem HCl 125 mg/ Sodium (Chloride) 125 mls @ 5 mls/hr IV NOW [facility]; Protocol Last Titration: 07/01/19 15:50 Dose: 15 mg/hr, 15 mls/hr Titration: 07/01/19 14:40 Dose: 10 mg/hr, 10 mls/hr Admin: 07/01/19 12:01 Dose: 5 mg/hr, 5 mls/hr Sodium Chloride (Normal Saline) 1,000 mls @ 125 mls/hr IV ASDIRECTED JASON Last Admin: 07/01/19 14:35 Dose: 125 mls/hr Magnesium Sulfate 2 gm/ Premix 50 mls @ 50 mls/hr IV ONETIME ONE Stop: 10/04/19 16:59 Thiamine HCl 100 mg/ Sodium (Chloride) 101 mls @ 202 mls/hr IV DAILY [facility] Lorazepam (Ativan) 1 mg IVPUSH Q4H PRN PRN Reason: per [facility] protocol Potassium Chloride (Klor-Con) 40 meq PO ASDIRECTED JASON Sodium Chloride (Saline Flush) 10 ml FLUSH ASDIRECTED PRN PRN Reason: Keep Vein Open Sodium Chloride (Saline Flush) 2.5 ml FLUSH ASDIRECTED PRN PRN Reason: Keep Vein Open Warfarin Sodium (Coumadin Sliding Scale) 0 each PO DAILY@1400 [facility] Last Admin: 07/01/19 14:45 Dose: Labs: Laboratory Tests 07/01/19 07/01/19 07/01/19 Range/Units 10:08 10:08 10:08 WBC 13.72 H (4.0-11.0) K/uL RBC 5.03 (4.30-5.90) M/uL Hgb 14.9 (12.0-16.0) g/dL Hct 44.2 (36.0-46.0) % MCV 87.9 (80.0-98.0) fL MCH 29.6 (27.0-32.0) pg MCHC 33.7 (31.0-37.0) g/dL RDW Std Deviation 50.1 (28.0-62.0) fl RDW Coeff of Nilay 16 H (11.0-15.0) % Plt Count 252 (150-400) K/uL MPV 9.30 (7.40-12.00) fL Neut % (Auto) 62.6 (48.0-80.0) % Lymph % (Auto) 30.5 (16.0-40.0) % Glasscock % (Auto) 4.4 (0.0-15.0) % Eos % (Auto) 1.3 (0.0-7.0) % Baso % (Auto) 1.2 (0.0-1.5) % Neut # (Auto) 8.6 H (1.4-5.7) K/uL Lymph # (Auto) 4.2 H (0.6-2.4) K/uL Glasscock # (Auto) 0.6 (0.0-0.8) K/uL Eos # (Auto) 0.2 (0.0-0.7) K/uL Baso # (Auto) 0.2 H (0.0-0.1) K/uL Nucleated RBC % 0.0 /100WBC Nucleated RBCs # 0 K/uL INR 2.59 Sodium 143 (136-145) mmol/L Potassium 3.4 L (3.5-5.1) mmol/L Chloride 101 (98-107) mmol/L Carbon Dioxide 17.6 L (21.0-32.0) mmol/L BUN 6 L (7.0-18.0) mg/dL Creatinine 1.0 (0.6-1.0) mg/dL Est Cr Clr Drug Dosing 51.80 mL/min Estimated GFR (MDRD) 55.5 ml/min Glucose 181 H (74-106) mg/dL Calcium 8.4 L (8.5-10.1) mg/dL Magnesium (1.8-2.4) mg/dL Total Bilirubin 0.5 (0.2-1.0) mg/dL AST 31 (15-37) IU/L ALT 20 (14-63) IU/L Alkaline Phosphatase 90 (46-116) U/L Troponin I (0.000-0.056) ng/mL Total Protein 7.8 (6.4-8.2) g/dL Albumin 3.6 (3.4-5.0) g/dL Globulin 4.2 H (2.6-4.0) g/dL Albumin/Globulin Ratio 0.9 (0.9-1.6) Lipase 127 (73-393) U/L 07/01/19 07/01/19 Range/Units 10:08 10:08 WBC (4.0-11.0) K/uL RBC (4.30-5.90) M/uL Hgb (12.0-16.0) g/dL Hct (36.0-46.0) % MCV (80.0-98.0) fL MCH (27.0-32.0) pg MCHC (31.0-37.0) g/dL RDW Std Deviation (28.0-62.0) fl RDW Coeff of Nilay (11.0-15.0) % Plt Count (150-400) K/uL MPV (7.40-12.00) fL Neut % (Auto) (48.0-80.0) % Lymph % (Auto) (16.0-40.0) % Glasscock % (Auto) (0.0-15.0) % Eos % (Auto) (0.0-7.0) % Baso % (Auto) (0.0-1.5) % Neut # (Auto) (1.4-5.7) K/uL Lymph # (Auto) (0.6-2.4) K/uL Glasscock # (Auto) (0.0-0.8) K/uL Eos # (Auto) (0.0-0.7) K/uL Baso # (Auto) (0.0-0.1) K/uL Nucleated RBC % /100WBC Nucleated RBCs # K/uL INR Sodium (136-145) mmol/L Potassium (3.5-5.1) mmol/L Chloride (98-107) mmol/L Carbon Dioxide (21.0-32.0) mmol/L BUN (7.0-18.0) mg/dL Creatinine (0.6-1.0) mg/dL Est Cr Clr Drug Dosing mL/min Estimated GFR (MDRD) ml/min Glucose (74-106) mg/dL Calcium (8.5-10.1) mg/dL Magnesium 1.4 L (1.8-2.4) mg/dL Total Bilirubin (0.2-1.0) mg/dL AST (15-37) IU/L ALT (14-63) IU/L Alkaline Phosphatase (46-116) U/L Troponin I < 0.050 (0.000-0.056) ng/mL Total Protein (6.4-8.2) g/dL Albumin (3.4-5.0) g/dL Globulin (2.6-4.0) g/dL Albumin/Globulin Ratio (0.9-1.6) Lipase (73-393) U/L Meds: Medications Generic Name Dose Route Start Last Admin Trade Name Freq PRN Reason Stop Dose Admin Diltiazem HCl 30 mg 07/01/19 13:11 07/01/19 14:19 Cardizem PO 30 mg Q6HR JASON Administration Folic Acid 1 mg 07/01/19 17:00 Folic Acid SUBCUT DAILY JASON Diltiazem HCl 125 mg/ Sodium 125 mls @ 5 mls/hr 07/01/19 11:15 07/01/19 15:50 Chloride IV 15 mg/hr NOW AJSON 15 mls/hr Titration Protocol 5 MG/HR Sodium Chloride 1,000 mls @ 125 mls/hr 07/01/19 13:15 07/01/19 14:35 Normal Saline IV 125 mls/hr ASDIRECTED JASON Administration Magnesium Sulfate 2 gm/ Premix 50 mls @ 50 mls/hr 07/01/19 16:00 IV 07/01/19 16:59 ONETIME ONE Thiamine HCl 100 mg/ Sodium 101 mls @ 202 mls/hr 07/01/19 16:00 Chloride IV DAILY JASON Lorazepam 1 mg 07/01/19 16:00 Ativan IVPUSH Q4H PRN per [facility] protocol Potassium Chloride 40 meq 07/01/19 16:00 Klor-Con PO ASDIRECTED JASON Sodium Chloride 10 ml 07/01/19 10:03 Saline Flush FLUSH ASDIRECTED PRN Keep Vein Open Sodium Chloride 2.5 ml 07/01/19 10:03 Saline Flush FLUSH ASDIRECTED PRN Keep Vein Open Warfarin Sodium 0 each 07/01/19 14:00 07/01/19 14:45 Coumadin Sliding Scale PO Not Given DAILY@1400 JASON Discontinued Medications Generic Name Dose Route Start Last Admin Trade Name Freq PRN Reason Stop Dose Admin Digoxin 250 mcg 07/01/19 13:06 07/01/19 13:33 Lanoxin IVPUSH 07/01/19 13:07 250 mcg ONETIME ONE Administration Diltiazem HCl 20 mg 07/01/19 10:35 07/01/19 11:00 Diltiazem IVPUSH 07/01/19 10:36 20 mg ONETIME ONE Administration Diltiazem HCl Confirm 07/01/19 10:47 07/01/19 10:48 Diltiazem Administered 07/01/19 10:48 25 mg Dose Administration 25 mg .ROUTE .STK-MED ONE Diltiazem HCl 5 mg 07/01/19 14:29 07/01/19 14:44 Diltiazem IVPUSH 07/01/19 14:30 5 mg ONETIME ONE Administration Diltiazem HCl 5 mg 07/01/19 15:37 Diltiazem IVPUSH 07/01/19 15:38 ONETIME ONE Sodium Chloride 1,000 mls @ 999 mls/hr 07/01/19 10:03 07/01/19 10:30 Normal Saline IV 07/01/19 11:03 999 mls/hr .Bolus ONE Administration Lorazepam 1 mg 07/01/19 11:09 07/01/19 11:16 Ativan IVPUSH 07/01/19 11:10 1 mg ONETIME ONE Administration Lorazepam Confirm 07/01/19 11:11 07/01/19 11:18 Ativan Administered 07/01/19 11:12 Not Given Dose 2 mg .ROUTE .STK-MED ONE Metoclopramide HCl 10 mg 07/01/19 10:39 07/01/19 11:16 Reglan IV 07/01/19 10:40 10 mg ONETIME ONE Administration Ondansetron HCl 4 mg 07/01/19 10:03 07/01/19 10:15 Zofran IVPUSH 07/01/19 10:04 4 mg ONETIME ONE Administration Warfarin Sodium 2.5 mg 07/01/19 14:00 07/01/19 14:44 Coumadin PO 07/01/19 14:01 2.5 mg 07/01/19@1400 JASON Administration Departure - Departure Time of Disposition: 13:05 Disposition: Refer to Observation Condition: Good, Fair Clinical Impression: Atrial fibrillation with RVR - Discharge Information - My Orders Last 24 Hours: My Active Orders 07/01/19 10:02 Saline Lock Insert [OM.PC] Stat 07/01/19 10:03 Sodium Chloride 0.9% [Saline Flush] 10 ml FLUSH ASDIRECTED PRN Sodium Chloride 0.9% [Saline Flush] 2.5 ml FLUSH ASDIRECTED PRN 07/01/19 10:04 UA W/MICROSCOPIC [URIN] Stat 07/01/19 10:42 Cardiac Monitoring [RC] . DIRECTED 07/01/19 11:15 Diltiazem 125 mg Sodium Chloride 0.9% [Normal Saline] 100 ml IV NOW 07/01/19 12:13 Admission Status [Patient Status] [ADT] Stat - Assessment/Plan Last 24 Hours: My Active Orders 07/01/19 10:02 Saline Lock Insert [OM.PC] Stat 07/01/19 10:03 Sodium Chloride 0.9% [Saline Flush] 10 ml FLUSH ASDIRECTED PRN Sodium Chloride 0.9% [Saline Flush] 2.5 ml FLUSH ASDIRECTED PRN 07/01/19 10:04 UA W/MICROSCOPIC [URIN] Stat 07/01/19 10:42 Cardiac Monitoring [RC] . DIRECTED 07/01/19 11:15 Diltiazem 125 mg Sodium Chloride 0.9% [Normal Saline] 100 ml IV NOW 07/01/19 12:13 Admission Status [Patient Status] [ADT] Stat
[2019-07-01] MEDS ORDERED: LORazepam 2 MG/ML SDV IVPUSH ONE (11:09)
[2019-07-01] MEDS ORDERED: LORazepam 2 MG/ML SDV ONE (11:11)
--- NOTE | 2019-07-01 11:54 | CR ---
Chest: Portable view of the chest was obtained. Comparison: Prior chest x-ray of 03/11/19. Heart size and mediastinum are within normal limits for portable technique. Lungs are clear with no acute parenchymal change. Scoliosis is noted within the spine. Impression: Nothing acute is appreciated on portable chest x-ray. Diagnostic code #2 MTDD
[2019-07-01] MEDS: Diltiazem 125 MG in Sodium Chloride 0.9% 100 ML IV SCH ×2 (12:01→21:35)
--- NOTE | 2019-07-01 13:05 | PN ---
[facility] Physician - Brief Progress [id number]/04/2019 12:57[facility] [place] An[place], [place] - MWN (ALMN) - MWN ALBA MALDONADODate of Service 07/01/2019 12:57HPI/Even ts of Note eICU Admission [id number] admitted for afib RVR. History obtained primarily from review of EM R.PMH: atrial fibrillation on coumadin, diabetes mellitus, COPD HPI: Presented to ED following a sync opal episode, as well as having nausea and vomiting. In ED patient was noted to develop afib RVR, whi ch prompted admission to the ICU. Camera exam: Laying in bed. Vitals monitor reviewed, tachycardic, o therwise hemodynamically stableVitals: reviewedLabs: reviewed, leukocytosis, hypokalemia, hyperglycem iaRadiology: reviewedMeds: reviewedeICU Impression and Recommendations:Atrial Fibrillation with Rapi d Ventricular responseTarget Mg > 2, K>4Will defer anticoagulation to primary service, consider trans ition to IV heparin drip if planning inpatient procedureDefer rhythm or rate control strategy to prim hortencia service and cardiologyFor rate control, recommend target rate of <110bpm. Will defer choice of ra te control agent to primary service, consider IV push metoprolol, IV push diltiazem (if no concern fo r underlying heart failure). Should these measures fail can consider continuous rate control drip (cardoza ch as diltiazem). Should patientxs blood pressure fail to tolerate medications, consider alternative agent such as digoxin. Should patient become unstable, recommend synchronized cardioversion (we are a vailable to assist with this if desired).Nausea and vomiting, of uncertain etiology. In light of leuk ocytosis, possible gastroenteritisSuggest abdominal imaging to rule out SBOSuggest maintaining patien t NPO at this time until nausea and emesis improveAnti-emetic medication as requiredPositive SIRS cri teria, as evidenced by leukocytosis and tachycardia, cannot rule out sepsisIf not already done, recom mend blood cultures, respiratory cultures, urinalysis, chest x-ray, and serum lactate. Alternatively can track trend of WBC and vitals with fluid resuscitation over next hours to assess progression, and if they fail to resolve can initiate sepsis work up.Antibiotics (both decision to start and antibiot ic choice) per primary service, we are available to assist.Diabetes MellitusHyperglycemia- Glycemic m anagement per primary service, we are available to assist if desired- Recommend targeted glucose goal of <180, and discontinuation of oral anti-hyperglycemics, with initiation of insulin- consider A1c i f not obtained in past 6 monthsDVT and GI prophylaxis as appropriate.We are available to assist in fu rther clarification, or implementation of any of the above recommendations if desired by primary serv ice.Thank you for allowing us to participate in the care of this patient.The above note transcribed v ia dictation software. Please excuse any errors.Interventions Major-Arrhythmia - evaluation and manag ement
[2019-07-01] MEDS ORDERED: Digoxin 500 MCG/2 ML Amp IVPUSH ONE (13:06)
--- NOTE | 2019-07-01 13:21 | PCM.HP.2 ---
H&P History of Present Illness - General Date of Service: 07/01/19 Admit Problem/Dx: Admission Diagnosis/Problem Admission Diagnosis/Problem Atrial fibrillation with rapid ventricular response - History of Present Illness Initial Comments - Free Text/Narative: 68 yo female who presents with palpitations, lightheadedness, nausea and vomiting. Patient reports she was drinking coke and bourbon last night and did not take her medications. This morning she woke up dizzy and nauseated. Patient states she only drinks about once a month. She was admitted last February for a.fib with RVR and discharged on amiodarone. She states she no longer takes amiodarone and is only on diltiazem and warfarin. In the ED she was noted to be atrial fibrillation with HR in the 240s. SHe was given IV diltiazem with improvement in the HR to the 140s and improvement in her symptoms. - Related Data Allergies/Adverse Reactions: Allergies Allergy/AdvReac Type Severity Reaction Status Date / Time Sulfa (Sulfonamide Allergy Hives Verified 07/01/19 12:58 Antibiotics) Home Medications: Home Meds Multivitamin [Multivitamins] 1 tab PO DAILY 07/29/16 [History] Magnesium Oxide 400 mg PO BID #30 tablet 09/07/16 [Rx] Ascorbic Acid [Vitamin C] 1,000 mg PO BID 07/02/19 [History] Diltiazem HCl [Diltiazem 24Hr ER] 120 mg PO DAILY 07/02/19 [History] Glycopyrrolate/Formoterol Fum [Bevespi Aerosphere Inhaler] 2 puff INH BID [History] Warfarin Sodium 2.5 mg PO .TUE,WED,FRI,SAT,SUN 07/02/19 [History] Warfarin Sodium 5 mg PO .MON & THUR 07/02/19 [History] Past Medical History HEENT History: Reports: Allergic Rhinitis, Cataract Other HEENT History: wears glasses, has top denture and bottom partial Cardiovascular History: Reports: Afib Respiratory History: Reports: None, Other (See Below) Other Respiratory History: longterm smoker- Primary started her on inhaler Gastrointestinal History: Reports: Hepatitis Other Gastrointestinal History: hx hepatitis C Genitourinary History: Reports: None Musculoskeletal History: Reports: None Neurological History: Reports: None Psychiatric History: Reports: Anxiety, Depression Endocrine/Metabolic History: Reports: None Hematologic History: Reports: Blood Transfusion(s) Immunologic History: Reports: None Oncologic (Cancer) History: Reports: None Dermatologic History: Reports: None - Infectious Disease History Infectious Disease History: Reports: Hepatitis C - Past Surgical History Head Surgeries/Procedures: Reports: None HEENT Surgical History: Reports: Adenoidectomy, Naso-Sinus Surgery, Tonsillectomy Other Female Surgeries/Procedures: states she had her "ureters stretched" as a child Musculoskeletal Surgical History: Reports: Arthroscopic Knee, Shoulder Surgery Social & Family History - Family History Family Medical History: Noncontributory - Tobacco Use Smoking Status *Q: Current Every Day Smoker Years of Tobacco use: 50 Packs/Tins Daily: 1 - Caffeine Use Caffeine Use: Reports: Coffee - Recreational Drug Use Recreational Drug Use: No H&P Review of Systems - Review of Systems: Review Of Systems: ROS reveals no pertinent complaints other than HPI. Exam - Exam Exam: See Below - Vital Signs Vital Signs: Last Vital Signs Temp 36.3 C 07/01/19 10:07 Pulse 71 07/01/19 10:07 Resp 17 07/01/19 10:07 BP 138/69 07/01/19 10:07 Pulse Ox 98 07/01/19 10:07 Weight: 65.771 kg - Exam General: Alert, Oriented HEENT: Mucosa Moist & [place] Neck: Supple Lungs: Clear to Auscultation, Normal Respiratory Effort Cardiovascular: Irregular Rhythm, Tachycardia GI/Abdominal Exam: Normal Bowel Sounds, Soft, Non-Tender Extremities: Non-Tender, No Pedal Edema Skin: Warm, Dry, Intact - Patient Data Lab Results Last 24 hrs: Laboratory Results - last 24 hr 07/01/19 07/01/19 07/01/19 Range/Units 10:08 10:08 10:08 WBC 13.72 H (4.0-11.0) K/uL RBC 5.03 (4.30-5.90) M/uL Hgb 14.9 (12.0-16.0) g/dL Hct 44.2 (36.0-46.0) % MCV 87.9 (80.0-98.0) fL MCH 29.6 (27.0-32.0) pg MCHC 33.7 (31.0-37.0) g/dL RDW Std Deviation 50.1 (28.0-62.0) fl RDW Coeff of Nilay 16 H (11.0-15.0) % Plt Count 252 (150-400) K/uL MPV 9.30 (7.40-12.00) fL Neut % (Auto) 62.6 (48.0-80.0) % Lymph % (Auto) 30.5 (16.0-40.0) % [place] % (Auto) 4.4 (0.0-15.0) % Eos % (Auto) 1.3 (0.0-7.0) % Baso % (Auto) 1.2 (0.0-1.5) % Neut # (Auto) 8.6 H (1.4-5.7) K/uL Lymph # (Auto) 4.2 H (0.6-2.4) K/uL [place] # (Auto) 0.6 (0.0-0.8) K/uL Eos # (Auto) 0.2 (0.0-0.7) K/uL Baso # (Auto) 0.2 H (0.0-0.1) K/uL Nucleated RBC % 0.0 /100WBC Nucleated RBCs # 0 K/uL INR 2.59 Sodium 143 (136-145) mmol/L Potassium 3.4 L (3.5-5.1) mmol/L Chloride 101 (98-107) mmol/L Carbon Dioxide 17.6 L (21.0-32.0) mmol/L BUN 6 L (7.0-18.0) mg/dL Creatinine 1.0 (0.6-1.0) mg/dL Est Cr Clr Drug Dosing 51.80 mL/min Estimated GFR (MDRD) 55.5 ml/min Glucose 181 H (74-106) mg/dL Calcium 8.4 L (8.5-10.1) mg/dL Total Bilirubin 0.5 (0.2-1.0) mg/dL AST 31 (15-37) IU/L ALT 20 (14-63) IU/L Alkaline Phosphatase 90 (46-116) U/L Troponin I (0.000-0.056) ng/mL Total Protein 7.8 (6.4-8.2) g/dL Albumin 3.6 (3.4-5.0) g/dL Globulin 4.2 H (2.6-4.0) g/dL Albumin/Globulin Ratio 0.9 (0.9-1.6) Lipase 127 (73-393) U/L 07/01/19 Range/Units 10:08 WBC (4.0-11.0) K/uL RBC (4.30-5.90) M/uL Hgb (12.0-16.0) g/dL Hct (36.0-46.0) % MCV (80.0-98.0) fL MCH (27.0-32.0) pg MCHC (31.0-37.0) g/dL RDW Std Deviation (28.0-62.0) fl RDW Coeff of Nilay (11.0-15.0) % Plt Count (150-400) K/uL MPV (7.40-12.00) fL Neut % (Auto) (48.0-80.0) % Lymph % (Auto) (16.0-40.0) % [place] % (Auto) (0.0-15.0) % Eos % (Auto) (0.0-7.0) % Baso % (Auto) (0.0-1.5) % Neut # (Auto) (1.4-5.7) K/uL Lymph # (Auto) (0.6-2.4) K/uL [place] # (Auto) (0.0-0.8) K/uL Eos # (Auto) (0.0-0.7) K/uL Baso # (Auto) (0.0-0.1) K/uL Nucleated RBC % /100WBC Nucleated RBCs # K/uL INR Sodium (136-145) mmol/L Potassium (3.5-5.1) mmol/L Chloride (98-107) mmol/L Carbon Dioxide (21.0-32.0) mmol/L BUN (7.0-18.0) mg/dL Creatinine (0.6-1.0) mg/dL Est Cr Clr Drug Dosing mL/min Estimated GFR (MDRD) ml/min Glucose (74-106) mg/dL Calcium (8.5-10.1) mg/dL Total Bilirubin (0.2-1.0) mg/dL AST (15-37) IU/L ALT (14-63) IU/L Alkaline Phosphatase (46-116) U/L Troponin I < 0.050 (0.000-0.056) ng/mL Total Protein (6.4-8.2) g/dL Albumin (3.4-5.0) g/dL Globulin (2.6-4.0) g/dL Albumin/Globulin Ratio (0.9-1.6) Lipase (73-393) U/L Result Diagrams: 07/02/19 06:05 07/02/19 06:05 Problem List Initiated/Reviewed/Updated: Yes Orders Last 24hrs: Active Orders 24 hr Category Date Time Status Admission Status [Patient Status] [ADT] Stat ADT 07/01/19 12:13 Active Antiembolic Devices [RC] PER UNIT ROUTINE Care 07/01/19 13:15 Ordered Cardiac Monitoring [RC] . DIRECTED Care 07/01/19 10:42 Active EKG Documentation Completion [RC] STAT Care 07/01/19 10:42 Active Oxygen Therapy [RC] PRN Care 07/01/19 13:14 Ordered Up ad Sheela [RC] ASDIRECTED Care 07/01/19 13:14 Ordered VTE/DVT Education [RC] PER UNIT ROUTINE Care 07/01/19 13:14 Ordered Vital Signs [RC] Q4H Care 07/01/19 13:14 Ordered BASIC METABOLIC PANEL,BMP [CHEM] AM Lab 07/02/19 05:11 Ordered BASIC METABOLIC PANEL,BMP [CHEM] AM Lab 07/03/19 05:11 Ordered CBC WITH AUTO DIFF [HEME] AM Lab 07/02/19 05:11 Ordered CBC WITH AUTO DIFF [HEME] AM Lab 07/03/19 05:11 Ordered INR,PT,PROTHROMBIN TIME [COAG] AM Lab 07/02/19 05:11 Ordered INR,PT,PROTHROMBIN TIME [COAG] AM Lab 07/03/19 05:11 Ordered MAGNESIUM [CHEM] Routine Lab 07/01/19 13:05 Ordered UA W/MICROSCOPIC [URIN] Stat Lab 07/01/19 10:04 Ordered Diltiazem 125 mg Med 07/01/19 11:15 Active Sodium Chloride 0.9% [Normal Saline] 100 ml IV NOW Diltiazem IR [Cardizem] Med 07/01/19 13:11 Ordered 30 mg PO Q6HR Sodium Chloride 0.9% @ 125 MLS/HR (1000ml) Med 07/01/19 13:15 Ordered Sodium Chloride 0.9% [Normal Saline] 1,000 ml IV ASDIRECTED Sodium Chloride 0.9% [Saline Flush] Med 07/01/19 10:03 Active 10 ml FLUSH ASDIRECTED PRN Sodium Chloride 0.9% [Saline Flush] Med 07/01/19 10:03 Active 2.5 ml FLUSH ASDIRECTED PRN Warfarin [Coumadin] Med 07/02/19 09:00 Ordered 2.5 mg PO DAILY Saline Lock Insert [OM.PC] Stat Oth 07/01/19 10:02 Ordered Sequential Compression Device [OM.PC] Per Unit Routine Oth 07/01/19 13:14 Ordered Resuscitation Status Routine Resus Stat 07/01/19 13:14 Ordered Medication Orders Diltiazem HCl (Cardizem) 30 mg PO Q6HR JASON Diltiazem HCl 125 mg/ Sodium (Chloride) 125 mls @ 5 mls/hr IV NOW JASON; Protocol Last Admin: 07/01/19 12:01 Dose: 5 mg/hr, 5 mls/hr Sodium Chloride (Normal Saline) 1,000 mls @ 125 mls/hr IV ASDIRECTED JASON Sodium Chloride (Saline Flush) 10 ml FLUSH ASDIRECTED PRN PRN Reason: Keep Vein Open Sodium Chloride (Saline Flush) 2.5 ml FLUSH ASDIRECTED PRN PRN Reason: Keep Vein Open Assessment/Plan Comment:: 68 yo female admitted for atrial fibrillation with RVR. She is being admitted to the ICU on diltiazem drip. We will also give digoxin and supplement her potassium.
[2019-07-01] MEDS ORDERED: Warfarin 2.5 MG Tab PO SCH (14:00)
[2019-07-01] MEDS: Diltiazem IR 30 MG Tab PO SCH ×2 (14:19→17:57)
[2019-07-01] MEDS: Sodium Chloride 0.9% 1,000 ML IV SCH ×2 (14:35→21:34)
[2019-07-01] MEDS: Warfarin Sliding Scale PO SCH (14:45)
[2019-07-01] MEDS ORDERED: LORazepam 2 MG/ML SDV IVPUSH PRN (16:00)
[2019-07-01] MEDS ORDERED: Thiamine 100 MG in Sodium Chloride 0.9% 100 ML IV SCH (16:00)
[2019-07-01] MEDS ORDERED: Potassium Chloride 20 MEQ Packet PO SCH (16:00)
[2019-07-01] MEDS ORDERED: Magnesium Sulfate/Water 2 GM in Premix Bag 1 BAG IV ONE (16:00)
[2019-07-01] MEDS ORDERED: Potassium Chloride 20 MEQ Tab.ER PO ONE (16:18)
[2019-07-01] MEDS: Folic Acid 50 MG/10 ML MDV SUBCUT SCH (16:28)
[2019-07-01] MEDS ORDERED: Metoprolol Tartrate 5 MG/5 ML SDV IVPUSH PRN (17:12)
--- NOTE | 2019-07-01 17:16 | PN ---
THC Physician - Brief Progress [id number]/04/2019 17:14[facility] janny AnahiDEV - EMIGDIO (COLBY) - ALBA PACHECODate of Service 07/01/2019 17:14HPI/Even ts of Note eICU Update NoteNotified by RN that heart rate not controlled despite diltiazem. On review by camera patient is laying in bed, HR 130s, SBP 140s. Ordered IV metoprololInterventions Major-Sharmila barroso - evaluation and management
[2019-07-01] MEDS: Thiamine 100 MG in Sodium Chloride 0.9% 100 ML IV SCH (17:17)
[2019-07-02] MEDS: Diltiazem IR 30 MG Tab PO SCH ×3 (00:12→12:42)
[2019-07-02] MEDS: Sodium Chloride 0.9% 1,000 ML IV SCH (05:40)
[2019-07-02 07:00] LABS: BLOOD UREA NITROGEN,BUN 3 mg/dL (7.0-18.0); CARBON DIOXIDE,CO2 26.8 mmol/L (21.0-32.0); CHLORIDE,CL 103 mmol/L (98-107); GLUCOSE RANDOM 125 mg/dL (74-106); POTASSIUM,K 4.3 mmol/L (3.5-5.1); SODIUM,NA 138 mmol/L (136-145)
[2019-07-02] MEDS: Folic Acid 50 MG/10 ML MDV SUBCUT SCH (08:42)
[2019-07-02] MEDS: Thiamine 100 MG in Sodium Chloride 0.9% 100 ML IV SCH (08:42)
[2019-07-02] MEDS ORDERED: Magnesium Sulfate/Water 2 GM in Premix Bag 1 BAG IV ONE (11:19)
--- NOTE | 2019-07-02 11:25 | PCM.DCSUM1 ---
Discharge Summary - Discharge Data Discharge Date: 07/02/19 Discharge Disposition: Home, Self-Care 01 Condition: Stable - Referral to Home Health Primary Care Physician: PCP None - Patient Summary/Data Hospital Course: 68 yo female with past medical history of atrial fibrillation who was admitted for atrial fibrillation with RVR. She presents with palpitations, lightheadedness, nausea and vomiting following a night of drinking and not taking her medications. Initially she was noted to be atrial fibrillation with HR in the 240s. She was given IV diltiazem with improvement in the HR to the 140s and improvement in her symptoms. She was transferred to the ICU for a diltiazem drip. Overnight she converted to normal sinus rhythm. Today she is requesting discharge home. She was discharge home to have follow up with Dr. Albrecht. - Patient Instructions Diet: Regular Diet as Tolerated Activity: As Tolerated - Discharge Plan Home Medications: Home Meds Multivitamin [Multivitamins] 1 tab PO DAILY 07/29/16 [History] Magnesium Oxide 400 mg PO BID #30 tablet 09/07/16 [Rx] Ascorbic Acid [Vitamin C] 1,000 mg PO BID 07/02/19 [History] Diltiazem HCl [Diltiazem 24Hr ER] 120 mg PO DAILY 07/02/19 [History] Glycopyrrolate/Formoterol Fum [Bevespi Aerosphere Inhaler] 2 puff INH BID [History] Warfarin Sodium 2.5 mg PO .TUE,WED,FRI,SAT,SUN 07/02/19 [History] Warfarin Sodium 5 mg PO .MON & THUR 07/02/19 [History] Forms: ED Department Discharge Referrals: PCP,None [Primary Care Provider] - - Discharge Summary/Plan Comment DC Time >30 min.: No - Patient Data Vitals - Most Recent: Last Vital Signs Temp 36.2 C 07/02/19 08:00 Pulse 67 07/02/19 10:00 Resp 20 07/02/19 10:00 BP 126/69 07/02/19 10:00 Pulse Ox 95 07/02/19 10:00 Weight - Most Recent: 65.2 kg I&O - Last 24 hours: Intake & Output 07/01/19 07/02/19 07/02/19 22:59 06:59 14:59 Intake Total 9766 1441 101 Output Total 2300 500 Balance 426 941 101 Lab Results - Last 24 hrs: Laboratory Results - last 24 hr 07/01/19 07/01/19 07/01/19 Range/Units 10:08 10:08 19:11 WBC (4.0-11.0) K/uL RBC (4.30-5.90) M/uL Hgb (12.0-16.0) g/dL Hct (36.0-46.0) % MCV (80.0-98.0) fL MCH (27.0-32.0) pg MCHC (31.0-37.0) g/dL RDW Std Deviation (28.0-62.0) fl RDW Coeff of Nilay (11.0-15.0) % Plt Count (150-400) K/uL MPV (7.40-12.00) fL Neut % (Auto) (48.0-80.0) % Lymph % (Auto) (16.0-40.0) % [place] % (Auto) (0.0-15.0) % Eos % (Auto) (0.0-7.0) % Baso % (Auto) (0.0-1.5) % Neut # (Auto) (1.4-5.7) K/uL Lymph # (Auto) (0.6-2.4) K/uL [place] # (Auto) (0.0-0.8) K/uL Eos # (Auto) (0.0-0.7) K/uL Baso # (Auto) (0.0-0.1) K/uL Nucleated RBC % /100WBC Nucleated RBCs # K/uL INR Sodium (136-145) mmol/L Potassium (3.5-5.1) mmol/L Chloride (98-107) mmol/L Carbon Dioxide (21.0-32.0) mmol/L BUN (7.0-18.0) mg/dL Creatinine (0.6-1.0) mg/dL Est Cr Clr Drug Dosing mL/min Estimated GFR (MDRD) ml/min Glucose (74-106) mg/dL Calcium (8.5-10.1) mg/dL Magnesium 1.4 L (1.8-2.4) mg/dL Troponin I < 0.050 (0.000-0.056) ng/mL Urine Color YELLOW Urine Appearance CLEAR Urine pH 7.0 (5.0-8.0) Ur Specific [place] 1.020 (1.001-1.035) Urine Protein NEGATIVE (NEGATIVE) mg/dL Urine Glucose (UA) NEGATIVE (NEGATIVE) mg/dL Urine Ketones 15 H (NEGATIVE) mg/dL Urine Occult Blood NEGATIVE (NEGATIVE) Urine Nitrite NEGATIVE (NEGATIVE) Urine Bilirubin NEGATIVE (NEGATIVE) Urine Urobilinogen 0.2 (<2.0) EU/dL Ur Leukocyte Esterase NEGATIVE (NEGATIVE) Urine RBC 0-1 (0-2/HPF) Urine WBC 0-1 (0-5/HPF) Ur Epithelial Cells RARE (NONE-FEW) Urine Bacteria RARE (NEGATIVE) 07/02/19 07/02/19 07/02/19 Range/Units 06:05 06:05 06:05 WBC 12.73 H (4.0-11.0) K/uL RBC 4.22 L (4.30-5.90) M/uL Hgb 12.4 (12.0-16.0) g/dL Hct 37.0 (36.0-46.0) % MCV 87.7 (80.0-98.0) fL MCH 29.4 (27.0-32.0) pg MCHC 33.5 (31.0-37.0) g/dL RDW Std Deviation 49.6 (28.0-62.0) fl RDW Coeff of Nilay 16 H (11.0-15.0) % Plt Count 189 (150-400) K/uL MPV 9.70 (7.40-12.00) fL Neut % (Auto) 75.1 (48.0-80.0) % Lymph % (Auto) 15.6 L (16.0-40.0) % [place] % (Auto) 7.4 (0.0-15.0) % Eos % (Auto) 1.4 (0.0-7.0) % Baso % (Auto) 0.5 (0.0-1.5) % Neut # (Auto) 9.6 H (1.4-5.7) K/uL Lymph # (Auto) 2.0 (0.6-2.4) K/uL [place] # (Auto) 0.9 H (0.0-0.8) K/uL Eos # (Auto) 0.2 (0.0-0.7) K/uL Baso # (Auto) 0.1 (0.0-0.1) K/uL Nucleated RBC % 0.0 /100WBC Nucleated RBCs # 0 K/uL INR 2.65 Sodium 138 (136-145) mmol/L Potassium 4.3 (3.5-5.1) mmol/L Chloride 103 (98-107) mmol/L Carbon Dioxide 26.8 (21.0-32.0) mmol/L BUN 3 L (7.0-18.0) mg/dL Creatinine 0.8 (0.6-1.0) mg/dL Est Cr Clr Drug Dosing 65.11 mL/min Estimated GFR (MDRD) > 60.0 ml/min Glucose 125 H (74-106) mg/dL Calcium 7.9 L (8.5-10.1) mg/dL Magnesium (1.8-2.4) mg/dL Troponin I (0.000-0.056) ng/mL Urine Color Urine Appearance Urine pH (5.0-8.0) Ur Specific [place] (1.001-1.035) Urine Protein (NEGATIVE) mg/dL Urine Glucose (UA) (NEGATIVE) mg/dL Urine Ketones (NEGATIVE) mg/dL Urine Occult Blood (NEGATIVE) Urine Nitrite (NEGATIVE) Urine Bilirubin (NEGATIVE) Urine Urobilinogen (<2.0) EU/dL Ur Leukocyte Esterase (NEGATIVE) Urine RBC (0-2/HPF) Urine WBC (0-5/HPF) Ur Epithelial Cells (NONE-FEW) Urine Bacteria (NEGATIVE) 07/02/19 Range/Units 06:05 WBC (4.0-11.0) K/uL RBC (4.30-5.90) M/uL Hgb (12.0-16.0) g/dL Hct (36.0-46.0) % MCV (80.0-98.0) fL MCH (27.0-32.0) pg MCHC (31.0-37.0) g/dL RDW Std Deviation (28.0-62.0) fl RDW Coeff of Nilay (11.0-15.0) % Plt Count (150-400) K/uL MPV (7.40-12.00) fL Neut % (Auto) (48.0-80.0) % Lymph % (Auto) (16.0-40.0) % [place] % (Auto) (0.0-15.0) % Eos % (Auto) (0.0-7.0) % Baso % (Auto) (0.0-1.5) % Neut # (Auto) (1.4-5.7) K/uL Lymph # (Auto) (0.6-2.4) K/uL [place] # (Auto) (0.0-0.8) K/uL Eos # (Auto) (0.0-0.7) K/uL Baso # (Auto) (0.0-0.1) K/uL Nucleated RBC % /100WBC Nucleated RBCs # K/uL INR Sodium (136-145) mmol/L Potassium (3.5-5.1) mmol/L Chloride (98-107) mmol/L Carbon Dioxide (21.0-32.0) mmol/L BUN (7.0-18.0) mg/dL Creatinine (0.6-1.0) mg/dL Est Cr Clr Drug Dosing mL/min Estimated GFR (MDRD) ml/min Glucose (74-106) mg/dL Calcium (8.5-10.1) mg/dL Magnesium 1.7 L (1.8-2.4) mg/dL Troponin I (0.000-0.056) ng/mL Urine Color Urine Appearance Urine pH (5.0-8.0) Ur Specific [place] (1.001-1.035) Urine Protein (NEGATIVE) mg/dL Urine Glucose (UA) (NEGATIVE) mg/dL Urine Ketones (NEGATIVE) mg/dL Urine Occult Blood (NEGATIVE) Urine Nitrite (NEGATIVE) Urine Bilirubin (NEGATIVE) Urine Urobilinogen (<2.0) EU/dL Ur Leukocyte Esterase (NEGATIVE) Urine RBC (0-2/HPF) Urine WBC (0-5/HPF) Ur Epithelial Cells (NONE-FEW) Urine Bacteria (NEGATIVE) Med Orders - Current: Current Medications Diltiazem HCl (Cardizem) 30 mg PO Q6HR [facility] Last Admin: 07/02/19 07:02 Dose: Not Given Folic Acid (Folic Acid) 1 mg SUBCUT DAILY [facility] Last Admin: 10/05/19 08:42 Dose: 1 mg Diltiazem HCl 125 mg/ Sodium (Chloride) 125 mls @ 5 mls/hr IV NOW [facility]; Protocol Last Titration: 07/02/19 04:27 Dose: 0 mg/hr, 0 mls/hr Sodium Chloride (Normal Saline) 1,000 mls @ 125 mls/hr IV ASDIRECTED [facility] Last Admin: 07/02/19 05:40 Dose: 125 mls/hr Thiamine HCl 100 mg/ Sodium (Chloride) 101 mls @ 202 mls/hr IV DAILY [facility] Last Admin: 07/02/19 08:42 Dose: 202 mls/hr Magnesium Sulfate 2 gm/ Premix 50 mls @ 50 mls/hr IV ONETIME ONE Stop: 07/02/19 12:18 Lorazepam (Ativan) 1 mg IVPUSH Q4H PRN PRN Reason: per CIWAA protocol Metoprolol Tartrate (Lopressor) 5 mg IVPUSH Q4H PRN PRN Reason: HR > 110, hold for SBP < 110 Last Admin: 07/01/19 19:21 Dose: 5 mg Sodium Chloride (Saline Flush) 10 ml FLUSH ASDIRECTED PRN PRN Reason: Keep Vein Open Sodium Chloride (Saline Flush) 2.5 ml FLUSH ASDIRECTED PRN PRN Reason: Keep Vein Open Warfarin Sodium (Coumadin Sliding Scale) 0 each PO DAILY@1400 [facility] Last Admin: 07/01/19 14:45 Dose: Not Given Warfarin Sodium (Coumadin) 2.5 mg PO 07/02/19@1400 [facility] Stop: 07/02/19 14:01 Discontinued Medications Digoxin (Lanoxin) 250 mcg IVPUSH ONETIME ONE Stop: 07/01/19 13:07 Last Admin: 07/01/19 13:33 Dose: 250 mcg Diltiazem HCl (Diltiazem) 20 mg IVPUSH ONETIME ONE Stop: 07/01/19 10:36 Last Admin: 07/01/19 11:00 Dose: 20 mg Diltiazem HCl (Diltiazem) Confirm Administered Dose 25 mg .ROUTE .STK-MED ONE Stop: 07/01/19 10:48 Last Admin: 07/01/19 10:48 Dose: 25 mg Diltiazem HCl (Diltiazem) 5 mg IVPUSH ONETIME ONE Stop: 07/01/19 14:30 Last Admin: 07/01/19 14:44 Dose: 5 mg Diltiazem HCl (Diltiazem) 5 mg IVPUSH ONETIME ONE Stop: 07/01/19 15:38 Last Admin: 07/01/19 16:20 Dose: 5 mg Sodium Chloride (Normal Saline) 1,000 mls @ 999 mls/hr IV .Bolus ONE Stop: 07/01/19 11:03 Last Admin: 07/01/19 10:30 Dose: 999 mls/hr Magnesium Sulfate 2 gm/ Premix 50 mls @ 50 mls/hr IV ONETIME ONE Stop: 07/01/19 16:59 Last Admin: 07/01/19 16:28 Dose: 50 mls/hr Thiamine HCl 100 mg/ Sodium (Chloride) 101 mls @ 202 mls/hr IV DAILY [facility] Last Admin: 07/01/19 17:58 Dose: Not Given Lorazepam (Ativan) 1 mg IVPUSH ONETIME ONE Stop: 07/01/19 11:10 Last Admin: 07/01/19 11:16 Dose: 1 mg Lorazepam (Ativan) Confirm Administered Dose 2 mg .ROUTE .STK-MED ONE Stop: 07/01/19 11:12 Last Admin: 07/01/19 11:18 Dose: Not Given Metoclopramide HCl (Reglan) 10 mg IV ONETIME ONE Stop: 07/01/19 10:40 Last Admin: 07/01/19 11:16 Dose: 10 mg Ondansetron HCl (Zofran) 4 mg IVPUSH ONETIME ONE Stop: 07/01/19 10:04 Last Admin: 07/01/19 10:15 Dose: 4 mg Potassium Chloride (Klor-Con M20) 40 meq PO ONETIME ONE Stop: 07/01/19 16:19 Last Admin: 07/01/19 17:44 Dose: 40 meq Warfarin Sodium (Coumadin) 2.5 mg PO 07/01/19@1400 [facility] Stop: 07/01/19 14:01 Last Admin: 07/01/19 14:44 Dose: 2.5 mg
--- NOTE | 2019-07-02 12:07 | PN ---
THC Physician - Brief Progress [id number]/05/2019 12:03[facility] Anahi Tierney DEV - JADAN [facility] - MWN SHANEALBA WELLSTienDate of Service 07/02/2019 12:03HPI/Even ts of Note Patient presented with right side pneumonia and sepsis. Much improved. Could not access th e camera today. Discussed with the nurse. Down to 1-2 liters of oxygen.Up and walking around. 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 Passed Swallowing. Started po intake(sugars were low normal thi s morning).Sputum showed GPC(? pneumococcus). On zosyn and vancomycin and doxycycline.May continue th e same penidng final identifaction of the bacteris and sensitivity testing.Interventions Major-Infect ion - evaluation and management, Sepsis - evaluation and managementMinor-[facility]ication with [facility] and/or family
--- NOTE | 2019-07-02 12:16 | PN ---
THC Physician - Brief Progress [id number]/05/2019 12:03[place] Anahi Tierney, DEV - MWN (COLBY) - MWN SHANEALBA WELLSTienDate of Service 07/02/2019 12:03HPI/Even ts of Note Patient presented with right side pneumonia and sepsis. Much improved. Could not access th e camera today. Discussed with the nurse. Down to 1-2 liters of oxygen.Up and walking around. 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 Passed Swallowing. Started po intake(sugars were low normal thi s morning).Sputum showed GPC(? pneumococcus). On zosyn and vancomycin and doxycycline.May continue th e same penidng final identifaction of the bacteris and sensitivity testing.Interventions Major-Infect ion - evaluation and management, Sepsis - evaluation and managementMinor-Communication with other [facility] providers and/or family Voided By: SENIA CATALAN) Date: 07/02/19 12:15wrong patient
[2019-07-02] MEDS ORDERED: Diltiazem 120 MG Cap.CD PO SCH (12:45)
[2019-07-02] MEDS: Warfarin Sliding Scale PO SCH (13:15)
[2019-07-02] MEDS ORDERED: Warfarin 2.5 MG Tab PO SCH (14:00)
[2019-07-02 14:15] VITALS: BP 152/74; PULSE 74
== END 2019-07-02 14:19 | disposition home or self-care (01) | DRG 310 ==
LOC: MW.ED 09:51 → MW.ICU 12:24
PROVIDERS: ADMIT Internal Medicine; ATTEND Internal Medicine
DX: I48.91 Unspecified atrial fibrillation (principal); J44.9 Chronic obstructive pulmonary disease, unspecified; R55 Syncope and collapse; R11.2 Nausea with vomiting, unspecified; F17.220 Nicotine dependence, chewing tobacco, uncomplicated; E11.65 Type 2 diabetes mellitus with hyperglycemia; F41.9 Anxiety disorder, unspecified; F32.9 Major depressive disorder, single episode, unspecified; F17.200 Nicotine dependence, unspecified, uncomplicated; Z88.2 Allergy status to sulfonamides; Z91.14 Patient's other noncompliance with medication regimen; Z79.01 Long term (current) use of anticoagulants; Z79.899 Other long term (current) drug therapy; Z98.49 Cataract extraction status, unspecified eye; Z90.89 Acquired absence of other organs
CPT/HCPCS: 36415; 70450; 71045; 80053; 83690; 83735; 84484; 85025; 85610; 93005; 96361; 96374; 96375; 96376; 99285; J2060; J2405; J2765; J3490 ×3; J7030; J7040; 80048; 81001; 82962; 87086; A9270-GY; J1160; J3411; J3475

== ENCOUNTER 2019-07-07 07:33 | Emergency (ER) | payer MEDICARE, MEDICAID ==
--- NOTE | 2019-07-07 07:45 | EDM.PDOC ---
ED HPI GENERAL MEDICAL PROBLEM - General Chief Complaint: General Stated Complaint: PAIN IN LEFT ARM- BELIEVES IV STILL IN ARM Time Seen by Provider: 07/07/19 07:36 Source of Information: Reports: Patient History Limitations: Reports: No Limitations - History of Present Illness INITIAL COMMENTS - FREE TEXT/NARRATIVE: History of present illness: []Patient was admitted on July 01 for uncontrolled A. fib and was discharged 5 days ago. Patient noted redness at her IV site 3 days ago that has progressively been worsening. He has swelling, redness to her left arm that's radiating to her axilla. Patient states she is in severe pain. She denies any chest pain or shortness of breath. Review of systems: As per history of present illness and below otherwise all systems reviewed and negative. Past medical history: As per history of present illness and as reviewed below otherwise noncontributory. Surgical history: As per history of present illness and as reviewed below otherwise noncontributory. Social history: No reported history of drug or alcohol abuse. Family history: As per history of present illness and as reviewed below otherwise noncontributory. Physical exam: General: Well developed, well nourished in NAD HEENT: Atraumatic, normocephalic, pupils reactive, negative for conjunctival pallor or scleral icterus, mucous membranes moist, throat clear, neck supple, nontender, trachea midline. Lungs: Clear to auscultation, breath sounds equal bilaterally, chest nontender. No rhonchi Heart: S1S2, regular, negative for clicks, rubs, or JVD. Abdomen: NABS, Soft, nondistended, nontender. Negative for masses or hepatosplenomegaly. Negative for costovertebral tenderness. Pelvis: Stable nontender. Genitourinary: Deferred. Rectal: Deferred. Extremities: Upper extremity with medial elbow erythema,swelling and tenderness. erythema extends up medial arm to axilla. negative for cords or calf pain. Neurovascular unremarkable. Neuro: Awake, alert, oriented. Cranial nerves II through XII unremarkable. Cerebellum unremarkable. Motor and sensory unremarkable throughout. Exam nonfocal. Skin:warm and dry Diagnostics: Blood cultures, CBC, chemistry, lactate, ultrasound left upper extremity-no DVT Therapeutics: morphine, IV fluids, ceftriaxone ED Course: Stable Impression: Superficial thrombophlebitis left upper extremity with cellulitis Prescriptions: Keflex, tramadol Plan: Take meds as directed, follow up with your primary care physician, return to ER if symptoms worsen or change. Definitive disposition and diagnosis as appropriate pending reevaluation and review of above. Left Upper Arm Pain Score (Numeric/FACES): 10 - Related Data Allergies Allergy/AdvReac Type Severity Reaction Status Date / Time Sulfa (Sulfonamide Allergy Hives Verified 07/07/19 07:47 Antibiotics) Home Meds: Home Meds Multivitamin [Multivitamins] 1 tab PO DAILY 07/29/16 [History] Magnesium Oxide 400 mg PO BID #30 tablet 09/07/16 [Rx] Ascorbic Acid [Vitamin C] 1,000 mg PO BID 07/02/19 [History] Diltiazem HCl [Diltiazem 24Hr ER] 120 mg PO DAILY #30 cap.er.24h 07/02/19 [Rx] Glycopyrrolate/Formoterol Fum [Bevespi Aerosphere Inhaler] 2 puff INH BID [History] Warfarin Sodium 2.5 mg PO .TUE,WED,FRI,SAT,SUN 07/02/19 [History] Warfarin Sodium 5 mg PO .MON & THUR 07/02/19 [History] cephALEXin [Keflex] 500 mg PO Q8H #21 cap 07/07/19 [Rx] traMADol HCl [Tramadol HCl] 50 mg PO Q6H PRN #16 tablet 07/07/19 [Rx] Past Medical History HEENT History: Reports: Allergic Rhinitis, Cataract Other HEENT History: wears glasses, has top denture and bottom partial Cardiovascular History: Reports: Afib Respiratory History: Reports: None, Other (See Below) Other Respiratory History: shelter smoker- Primary started her on inhaler Gastrointestinal History: Reports: Hepatitis Other Gastrointestinal History: hx hepatitis C Genitourinary History: Reports: None Musculoskeletal History: Reports: None Neurological History: Reports: None Psychiatric History: Reports: Anxiety, Depression Endocrine/Metabolic History: Reports: None Hematologic History: Reports: Blood Transfusion(s) Immunologic History: Reports: None Oncologic (Cancer) History: Reports: None Dermatologic History: Reports: None - Infectious Disease History Infectious Disease History: Reports: Hepatitis C - Past Surgical History Head Surgeries/Procedures: Reports: None HEENT Surgical History: Reports: Adenoidectomy, Naso-Sinus Surgery, Tonsillectomy Other Female Surgeries/Procedures: states she had her "ureters stretched" as a child Musculoskeletal Surgical History: Reports: Arthroscopic Knee, Shoulder Surgery Social & Family History - Family History Family Medical History: Noncontributory - Caffeine Use Caffeine Use: Reports: Coffee ED ROS GENERAL - Review of Systems Review Of Systems: See Below ED EXAM, GENERAL - Physical Exam Exam: See Below Course - Vital Signs Last Recorded V/S: Last Vital Signs Temp 96.8 F 07/07/19 09:34 Pulse 84 07/07/19 09:34 Resp 18 07/07/19 07:41 BP 103/55 L 07/07/19 09:34 Pulse Ox 95 07/07/19 09:34 - Orders/Labs/Meds Orders: Active Orders 24 hr Category Date Time Status CULTURE BLOOD [BC] Stat Lab 07/07/19 08:20 Received CULTURE BLOOD [BC] Stat Lab 07/07/19 08:40 Received Sodium Chloride 0.9% [Saline Flush] Med 07/07/19 08:00 Active 10 ml FLUSH ASDIRECTED PRN Sodium Chloride 0.9% [Saline Flush] Med 07/07/19 08:00 Active 2.5 ml FLUSH ASDIRECTED PRN Blood Culture x2 Reflex Set [OM.PC] Stat Oth 07/07/19 07:59 Ordered Saline Lock Insert [OM.PC] Stat Oth 07/07/19 07:59 Ordered Medication Orders Sodium Chloride (Saline Flush) 10 ml FLUSH ASDIRECTED PRN PRN Reason: Keep Vein Open Sodium Chloride (Saline Flush) 2.5 ml FLUSH ASDIRECTED PRN PRN Reason: Keep Vein Open Labs: Laboratory Tests 07/07/19 07/07/19 07/07/19 Range/Units 08:20 08:20 08:20 WBC 11.70 H (4.0-11.0) K/uL RBC 4.38 (4.30-5.90) M/uL Hgb 12.8 (12.0-16.0) g/dL Hct 38.3 (36.0-46.0) % MCV 87.4 (80.0-98.0) fL MCH 29.2 (27.0-32.0) pg MCHC 33.4 (31.0-37.0) g/dL RDW Std Deviation 49.9 (28.0-62.0) fl RDW Coeff of Nilay 16 H (11.0-15.0) % Plt Count 224 (150-400) K/uL MPV 9.40 (7.40-12.00) fL Neut % (Auto) 68.9 (48.0-80.0) % Lymph % (Auto) 14.4 L (16.0-40.0) % Ripley % (Auto) 13.2 (0.0-15.0) % Eos % (Auto) 3.2 (0.0-7.0) % Baso % (Auto) 0.3 (0.0-1.5) % Neut # (Auto) 8.1 H (1.4-5.7) K/uL Lymph # (Auto) 1.7 (0.6-2.4) K/uL Ripley # (Auto) 1.6 H (0.0-0.8) K/uL Eos # (Auto) 0.4 (0.0-0.7) K/uL Baso # (Auto) 0.0 (0.0-0.1) K/uL Nucleated RBC % 0.0 /100WBC Nucleated RBCs # 0 K/uL INR Lactate 1.2 (0.20-2.00) mmol/L Sodium 134 L (136-145) mmol/L Potassium 3.7 (3.5-5.1) mmol/L Chloride 97 L (98-107) mmol/L Carbon Dioxide 24.4 (21.0-32.0) mmol/L BUN 9 (7.0-18.0) mg/dL Creatinine 0.8 (0.6-1.0) mg/dL Est Cr Clr Drug Dosing 64.76 mL/min Estimated GFR (MDRD) > 60.0 ml/min Glucose 109 H (74-106) mg/dL Calcium 8.9 (8.5-10.1) mg/dL Total Bilirubin 0.5 (0.2-1.0) mg/dL AST 19 (15-37) IU/L ALT 23 (14-63) IU/L Alkaline Phosphatase 71 (46-116) U/L Total Protein 7.7 (6.4-8.2) g/dL Albumin 3.4 (3.4-5.0) g/dL Globulin 4.3 H (2.6-4.0) g/dL Albumin/Globulin Ratio 0.8 L (0.9-1.6) 07/07/19 Range/Units 08:20 WBC (4.0-11.0) K/uL RBC (4.30-5.90) M/uL Hgb (12.0-16.0) g/dL Hct (36.0-46.0) % MCV (80.0-98.0) fL MCH (27.0-32.0) pg MCHC (31.0-37.0) g/dL RDW Std Deviation (28.0-62.0) fl RDW Coeff of Nilay (11.0-15.0) % Plt Count (150-400) K/uL MPV (7.40-12.00) fL Neut % (Auto) (48.0-80.0) % Lymph % (Auto) (16.0-40.0) % Ripley % (Auto) (0.0-15.0) % Eos % (Auto) (0.0-7.0) % Baso % (Auto) (0.0-1.5) % Neut # (Auto) (1.4-5.7) K/uL Lymph # (Auto) (0.6-2.4) K/uL Ripley # (Auto) (0.0-0.8) K/uL Eos # (Auto) (0.0-0.7) K/uL Baso # (Auto) (0.0-0.1) K/uL Nucleated RBC % /100WBC Nucleated RBCs # K/uL INR 1.61 Lactate (0.20-2.00) mmol/L Sodium (136-145) mmol/L Potassium (3.5-5.1) mmol/L Chloride (98-107) mmol/L Carbon Dioxide (21.0-32.0) mmol/L BUN (7.0-18.0) mg/dL Creatinine (0.6-1.0) mg/dL Est Cr Clr Drug Dosing mL/min Estimated GFR (MDRD) ml/min Glucose (74-106) mg/dL Calcium (8.5-10.1) mg/dL Total Bilirubin (0.2-1.0) mg/dL AST (15-37) IU/L ALT (14-63) IU/L Alkaline Phosphatase (46-116) U/L Total Protein (6.4-8.2) g/dL Albumin (3.4-5.0) g/dL Globulin (2.6-4.0) g/dL Albumin/Globulin Ratio (0.9-1.6) Meds: Medications Generic Name Dose Route Start Last Admin Trade Name Freq PRN Reason Stop Dose Admin Sodium Chloride 10 ml 07/07/19 08:00 Saline Flush FLUSH ASDIRECTED PRN Keep Vein Open Sodium Chloride 2.5 ml 07/07/19 08:00 Saline Flush FLUSH ASDIRECTED PRN Keep Vein Open Discontinued Medications Generic Name Dose Route Start Last Admin Trade Name Freq PRN Reason Stop Dose Admin Sodium Chloride 1,000 mls @ 999 mls/hr 07/07/19 08:08 07/07/19 08:22 Normal Saline IV 07/07/19 09:08 999 mls/hr .Bolus ONE Administration Ceftriaxone Sodium/Dextrose 1 50 mls @ 100 mls/hr 07/07/19 08:09 07/07/19 08: 26 gm/ Premix IV 07/07/19 08:38 100 mls/hr ONETIME ONE Administration Morphine Sulfate 2 mg 07/07/19 08:03 07/07/19 08:22 Morphine IVPUSH 07/07/19 08:04 2 mg ONETIME ONE Administration Morphine Sulfate 2 mg 07/07/19 08:09 07/07/19 08:25 Morphine IVPUSH 07/07/19 08:10 2 mg ONETIME ONE Administration Ondansetron HCl 4 mg 07/07/19 08:03 07/07/19 08:22 Zofran IVPUSH 07/07/19 08:04 4 mg ONETIME ONE Administration Departure - Departure Time of Disposition: 09:46 Disposition: Home, Self-Care 01 Condition: Good Clinical Impression: Superficial thrombophlebitis of left upper extremity - Discharge Information *PRESCRIPTION DRUG MONITORING PROGRAM REVIEWED*: No *COPY OF PRESCRIPTION DRUG MONITORING REPORT IN PATIENT DI: No Prescriptions: cephALEXin [Keflex] 500 mg PO Q8H #21 cap traMADol HCl [Tramadol HCl] 50 mg PO Q6H PRN #16 tablet PRN Reason: Pain Referrals: Jeovanny Albrecht MD [Primary Care Provider] - Forms: ED Department Discharge Additional Instructions: The following information is given to patients seen in the emergency department who are being discharged to home. This information is to outline your options for follow-up care. We provide all patients seen in our emergency department with a follow-up referral. The need for follow-up, as well as the timing and circumstances, are variable depending upon the specifics of your emergency department visit. If you don't have a primary care physician on staff, we will provide you with a referral. We always advise you to contact your personal physician following an emergency department visit to inform them of the circumstance of the visit and for follow-up with them and/or the need for any referrals to a consulting specialist. The emergency department will also refer you to a specialist when appropriate. This referral assures that you have the opportunity for follow-up care with a specialist. All of these measure are taken in an effort to provide you with optimal care, which includes your follow-up. Under all circumstances we always encourage you to contact your private physician who remains a resource for coordinating your care. When calling for follow-up care, please make the office aware that this follow-up is from your recent emergency room visit. If for any reason you are refused follow-up, please contact the [facility] Emergency Department at and asked to speak to the emergency department charge nurse. Take meds as directed, follow up with your primary care physician, return to ER if symptoms worsen or change. [facility] [address] [place] [id number] - My Orders Last 24 Hours: My Active Orders 07/07/19 07:59 Blood Culture x2 Reflex Set [OM.PC] Stat Saline Lock Insert [OM.PC] Stat 07/07/19 08:00 Sodium Chloride 0.9% [Saline Flush] 10 ml FLUSH ASDIRECTED PRN Sodium Chloride 0.9% [Saline Flush] 2.5 ml FLUSH ASDIRECTED PRN 07/07/19 08:20 CULTURE BLOOD [BC] Stat 07/07/19 08:40 CULTURE BLOOD [BC] Stat - Assessment/Plan Last 24 Hours: My Active Orders 07/07/19 07:59 Blood Culture x2 Reflex Set [OM.PC] Stat Saline Lock Insert [OM.PC] Stat 07/07/19 08:00 Sodium Chloride 0.9% [Saline Flush] 10 ml FLUSH ASDIRECTED PRN Sodium Chloride 0.9% [Saline Flush] 2.5 ml FLUSH ASDIRECTED PRN 07/07/19 08:20 CULTURE BLOOD [BC] Stat 07/07/19 08:40 CULTURE BLOOD [BC] Stat
[2019-07-07] MEDS ORDERED: Sodium Chloride 0.9% 2.5 ML Syringe FLUSH PRN (08:00)
[2019-07-07] MEDS ORDERED: Sodium Chloride 0.9% 10 ML Syringe FLUSH PRN (08:00)
[2019-07-07] MEDS ORDERED: Morphine 2 MG/ML Syringe IVPUSH ONE ×2 (08:03→08:09)
[2019-07-07] MEDS ORDERED: Ondansetron 4 MG/2 ML SDV IVPUSH ONE (08:03)
[2019-07-07] MEDS ORDERED: Morphine 4 MG/ML Syringe IVPUSH ONE (08:08)
[2019-07-07] MEDS ORDERED: Sodium Chloride 0.9% 1,000 ML IV ONE (08:08)
[2019-07-07] MEDS ORDERED: cefTRIAXone 1 GM in Premix Bag 1 BAG IV ONE (08:09)
[2019-07-07 09:01] LABS: BLOOD UREA NITROGEN,BUN 9 mg/dL (7.0-18.0); CARBON DIOXIDE,CO2 24.4 mmol/L (21.0-32.0); CHLORIDE,CL 97 mmol/L (98-107); GLUCOSE RANDOM 109 mg/dL (74-106); POTASSIUM,K 3.7 mmol/L (3.5-5.1); SODIUM,NA 134 mmol/L (136-145)
--- NOTE | 2019-07-07 09:37 | US ---
Examination: Duplex ultrasound of left arm veins Indication: Soft tissue swelling in the antecubital fossa. Recent IV placement in that region. Technique: Toney scale, color Doppler, and spectral Doppler images of left arm veins were obtained. Compression maneuvers were performed. Comparison: None. Findings: The internal jugular, subclavian, axillary, and brachial veins demonstrate normal color Doppler venous blood flow. Veins accessible to compression maneuvers are compressible. Basilic and cephalic veins are patent. In the region of swelling in the left antecubital region. There is soft tissue edema noted without underlying fluid collection. There is partial thrombosis of a superficial vein in the antecubital fossa. Impression: No evidence of left upper extremity deep vein thrombosis. Edema in antecubital fossa without underlying fluid collection. Thrombus noted in a superficial vein in the antecubital fossa. Dictated by Pawel Noguera MD @ Jul 07 2019 9:32AM Signed by Dr. Pawel Noguera @ Jul 07 2019 9:36AM
[2019-07-07 10:59] VITALS: BP 108/67; PULSE 79
== END 2019-07-07 10:10 | disposition home or self-care (01) ==
LOC: MW.ED 07:33
DX: I82.612 Acute embolism and thrombosis of superficial veins of left upper extremity (principal); L03.114 Cellulitis of left upper limb; I48.91 Unspecified atrial fibrillation; F41.9 Anxiety disorder, unspecified; F32.9 Major depressive disorder, single episode, unspecified; Z88.2 Allergy status to sulfonamides; Z79.899 Other long term (current) drug therapy; Z79.01 Long term (current) use of anticoagulants
CPT/HCPCS: 36415; 80053; 83605; 85025; 85610; 87040; 93971-26-LT; 93971-LT; 96361; 96365; 96375; 99284-25; J0696; J2270; J2405; J7040

== ENCOUNTER 2019-09-14 07:36 | Observation (INO) | payer MEDICARE, MEDICAID ==
[2019-09-14] MEDS ORDERED: Ondansetron 4 MG/2 ML SDV ONE (07:50)
[2019-09-14] MEDS ORDERED: Diltiazem 25 MG/5 ML SDV ONE ×2 (07:56→08:02)
[2019-09-14] MEDS ORDERED: Sodium Chloride 0.9% 1,000 ML IV ONE (07:59)
[2019-09-14] MEDS ORDERED: Sodium Chloride 0.9% 10 ML SDV IV PRN (07:59)
[2019-09-14] MEDS ORDERED: Sodium Chloride 0.9% 10 ML Syringe FLUSH PRN (07:59)
[2019-09-14] MEDS ORDERED: Sodium Chloride 0.9% 2.5 ML Syringe FLUSH PRN (07:59)
[2019-09-14] MEDS ORDERED: Adenosine 6 MG/2 ML SDV IVPUSH ONE ×2 (08:15→08:16)
[2019-09-14] MEDS ORDERED: Diltiazem 25 MG/5 ML SDV IVPUSH ONE ×2 (08:16)
[2019-09-14] MEDS: Sodium Chloride 0.9% 1,000 ML IV SCH ×3 (08:17→08:19)
[2019-09-14] MEDS ORDERED: Ondansetron 4 MG/2 ML SDV IVPUSH ONE (08:21)
--- NOTE | 2019-09-14 08:35 | CR ---
INDICATION: Chest pain. TECHNIQUE: Chest 1 view COMPARISON: Chest radiograph 07/01/2019. FINDINGS: Defibrillator pad projected over the right upper chest somewhat limits evaluation. No focal consolidation, pleural effusion, or pneumothorax. Heart size upper limits of normal. Normal pulmonary vascularity. IMPRESSION: No acute cardiopulmonary findings. Dictated by Ann-Marie Deleon MD @ Sep 14 2019 8:31AM Signed by Dr. Ann-Marie Deleon @ Sep 14 2019 8:33AM
[2019-09-14 08:36] LABS: BLOOD UREA NITROGEN,BUN 20 mg/dL (7.0-18.0); CARBON DIOXIDE,CO2 29.9 mmol/L (21.0-32.0); CHLORIDE,CL 93 mmol/L (98-107); GLUCOSE RANDOM 144 mg/dL (74-106); POTASSIUM,K 2.8 mmol/L (3.5-5.1); SODIUM,NA 135 mmol/L (136-145)
--- NOTE | 2019-09-14 08:46 | EDM.PDOC ---
ED HPI GENERAL MEDICAL PROBLEM - General Chief Complaint: Cardiovascular Problem Stated Complaint: VERY RAPID HEARTBEAT, HAS AFIB Time Seen by Provider: 09/14/19 07:37 Source of Information: Reports: Patient History Limitations: Reports: No Limitations - History of Present Illness INITIAL COMMENTS - FREE TEXT/NARRATIVE: Pt is a 68 yo F with hx of afib complaining of feeling lightheaded and that her heart was racing. pt states she started feeling generally unwell last night, but the lightheadedness started this AM. Pt states she checked her HR this AM and found that was 170s. Pt denies feeling chest pain, shortness of breath, syncope. Pt has no recent illnesses. No nausea, vomiting or diarrhea. Nothing makes her symptoms better or worse. - Related Data Allergies Allergy/AdvReac Type Severity Reaction Status Date / Time Sulfa (Sulfonamide Allergy Hives Verified 09/14/19 08:00 Antibiotics) Home Meds: Home Meds Multivitamin [Multivitamins] 1 tab PO DAILY 07/29/16 [History] Magnesium Oxide 400 mg PO BID #30 tablet 09/07/16 [Rx] Ascorbic Acid [Vitamin C] 1,000 mg PO BID 07/02/19 [History] Diltiazem HCl [Diltiazem 24Hr ER] 120 mg PO DAILY #30 cap.er.24h 07/02/19 [Rx] Glycopyrrolate/Formoterol Fum [Bevespi Aerosphere Inhaler] 2 puff INH BID [History] Warfarin Sodium 2.5 mg PO .TUE,WED,FRI,SAT,SUN 07/02/19 [History] Warfarin Sodium 5 mg PO .MON & THUR 07/02/19 [History] Past Medical History HEENT History: Reports: Allergic Rhinitis, Cataract Other HEENT History: wears glasses, has top denture and bottom partial Cardiovascular History: Reports: Afib Respiratory History: Reports: None, Other (See Below) Other Respiratory History: detention smoker- Primary started her on inhaler Gastrointestinal History: Reports: Hepatitis Other Gastrointestinal History: hx hepatitis C Genitourinary History: Reports: None SNELLER HAND History: Reports: None Musculoskeletal History: Reports: None Neurological History: Reports: None Psychiatric History: Reports: Anxiety, Depression Endocrine/Metabolic History: Reports: None Hematologic History: Reports: Blood Transfusion(s) Immunologic History: Reports: None Oncologic (Cancer) History: Reports: None Dermatologic History: Reports: None - Infectious Disease History Infectious Disease History: Reports: Hepatitis C - Past Surgical History Head Surgeries/Procedures: Reports: None HEENT Surgical History: Reports: Adenoidectomy, Naso-Sinus Surgery, Tonsillectomy Cardiovascular Surgical History: Reports: None Respiratory Surgical History: Reports: None GI Surgical History: Reports: None Female Surgical History: Reports: Other (See Below) Other Female Surgeries/Procedures: states she had her "ureters stretched" as a child Endocrine Surgical History: Reports: None Neurological Surgical History: Reports: None Musculoskeletal Surgical History: Reports: Arthroscopic Knee, Shoulder Surgery Dermatological Surgical History: Reports: None Social & Family History - Family History Family Medical History: Noncontributory - Tobacco Use Smoking Status *Q: Current Every Day Smoker Years of Tobacco use: 50 Packs/Tins Daily: 1 - Caffeine Use Caffeine Use: Reports: Tea - Recreational Drug Use Recreational Drug Use: Yes Recreational Drug Type: Reports: Marijuana/Hashish Recreational Drug Use Frequency: Socially ED ROS GENERAL - Review of Systems Review Of Systems: Comprehensive ROS is negative, except as noted in HPI. ED EXAM, GENERAL - Physical Exam Exam: See Below Exam Limited By: No Limitations General Appearance: Alert, WD/WN, No Apparent Distress Throat/Mouth: Normal Voice, No Airway Compromise Head: Atraumatic, Normocephalic Neck: Normal Inspection Cardiovascular: Normal Peripheral Pulses, No Edema, Tachycardia Peripheral Pulses: 2+: Radial (L), Radial (R) GI/Abdominal: Soft, Non-Tender, No Organomegaly, No Distention Extremities: Normal Inspection, No Pedal Edema Neurological: Alert, Oriented, Normal Cognition, No Motor/Sensory Deficits Psychiatric: Normal Affect, Normal Mood Skin Exam: Warm, Dry, Intact EKG INTERPRETATION EKG Date: 09/14/19 Time: 07:35 Rate (Beats/Min): 180 [place]: Normal P-Wave: Present QRS: Normal Comparison: NA - No Prior EKG Course - Vital Signs Last Recorded V/S: Last Vital Signs Temp 35.6 C 09/14/19 07:41 Pulse 172 H 09/14/19 07:41 Resp 20 09/14/19 07:41 BP 117/58 L 09/14/19 07:41 Pulse Ox - Orders/Labs/Meds Orders: Active Orders 24 hr Category Date Time Status Cardiac Monitoring [RC] . DIRECTED Care 09/14/19 07:59 Active EKG 12 Lead [EKG Documentation Completion] [RC] STAT Care 09/14/19 08:31 Active UA W/MICROSCOPIC [URIN] Stat Lab 09/14/19 07:59 Ordered Potassium Chloride Riders [KCL 20 MEQ in Water 50 ML] Med 09/14/19 08:51 Active 20 meq Premix Bag 1 bag IV ONETIME Sodium Chloride 0.9% [Normal Saline] Med 09/14/19 07:59 Active 10 ml IV ASDIRECTED PRN Sodium Chloride 0.9% [Normal Saline] 1,000 ml Med 09/14/19 08:30 Active IV ASDIRECTED Sodium Chloride 0.9% [Saline Flush] Med 09/14/19 07:59 Active 10 ml FLUSH ASDIRECTED PRN Sodium Chloride 0.9% [Saline Flush] Med 09/14/19 07:59 Active 2.5 ml FLUSH ASDIRECTED PRN Peripheral IV Insertion Adult [OM.PC] Stat Oth 09/14/19 07:59 Ordered Saline Lock Insert [OM.PC] Stat Oth 09/14/19 07:59 Ordered Medication Orders Sodium Chloride (Normal Saline) 1,000 mls @ 999 mls/hr IV ASDIRECTED JASON Last Admin: 09/14/19 08:19 Dose: 999 mls/hr Infusion: 09/14/19 08:19 Dose: 999 mls/hr Admin: 09/14/19 08:18 Dose: 999 mls/hr Infusion: 09/14/19 08:18 Dose: 999 mls/hr Admin: 09/14/19 08:17 Dose: 999 mls/hr Potassium Chloride 20 meq/ (Premix) 50 mls @ 25 mls/hr IV ONETIME ONE Stop: 09/14/19 10:50 Sodium Chloride (Saline Flush) 10 ml FLUSH ASDIRECTED PRN PRN Reason: Keep Vein Open Last Admin: 09/14/19 08:20 Dose: 10 ml Sodium Chloride (Saline Flush) 2.5 ml FLUSH ASDIRECTED PRN PRN Reason: Keep Vein Open Last Admin: 09/14/19 08:21 Dose: 2.5 ml Sodium Chloride (Normal Saline) 10 ml IV ASDIRECTED PRN PRN Reason: IV Use Last Admin: 09/14/19 08:21 Dose: 10 ml Labs: Laboratory Tests 09/14/19 09/14/19 09/14/19 Range/Units 07:45 07:45 07:58 WBC 13.12 H (4.0-11.0) K/uL RBC 5.23 (4.30-5.90) M/uL Hgb 15.2 (12.0-16.0) g/dL Hct 44.5 (36.0-46.0) % MCV 85.1 (80.0-98.0) fL MCH 29.1 (27.0-32.0) pg MCHC 34.2 (31.0-37.0) g/dL RDW Std Deviation 51.1 (28.0-62.0) fl RDW Coeff of Nilay 17 H (11.0-15.0) % Plt Count 216 (150-400) K/uL MPV 9.60 (7.40-12.00) fL Neut % (Auto) 66.9 (48.0-80.0) % Lymph % (Auto) 24.2 (16.0-40.0) % [place] % (Auto) 6.6 (0.0-15.0) % Eos % (Auto) 1.8 (0.0-7.0) % Baso % (Auto) 0.5 (0.0-1.5) % Neut # (Auto) 8.8 H (1.4-5.7) K/uL Lymph # (Auto) 3.2 H (0.6-2.4) K/uL [place] # (Auto) 0.9 H (0.0-0.8) K/uL Eos # (Auto) 0.2 (0.0-0.7) K/uL Baso # (Auto) 0.1 (0.0-0.1) K/uL Nucleated RBC % 0.0 /100WBC Nucleated RBCs # 0 K/uL INR > 14.54 H* Sodium 135 L (136-145) mmol/L Potassium 2.8 L (3.5-5.1) mmol/L Chloride 93 L (98-107) mmol/L Carbon Dioxide 29.9 (21.0-32.0) mmol/L BUN 20 H (7.0-18.0) mg/dL Creatinine 1.3 H (0.6-1.0) mg/dL Est Cr Clr Drug Dosing 39.85 mL/min Estimated GFR (MDRD) 41.0 ml/min Glucose 144 H (74-106) mg/dL Calcium 9.8 (8.5-10.1) mg/dL Magnesium 1.7 L (1.8-2.4) mg/dL Total Bilirubin 0.8 (0.2-1.0) mg/dL AST 72 H (15-37) IU/L ALT 56 (14-63) IU/L Alkaline Phosphatase 82 (46-116) U/L Creatine Kinase 49 (26-308) U/L Troponin I < 0.050 (0.000-0.056) ng/mL B-Natriuretic Peptide (<100) PG/ML Total Protein 7.8 (6.4-8.2) g/dL Albumin 3.7 (3.4-5.0) g/dL Globulin 4.1 H (2.6-4.0) g/dL Albumin/Globulin Ratio 0.9 (0.9-1.6) 09/14/19 Range/Units 07:58 WBC (4.0-11.0) K/uL RBC (4.30-5.90) M/uL Hgb (12.0-16.0) g/dL Hct (36.0-46.0) % MCV (80.0-98.0) fL MCH (27.0-32.0) pg MCHC (31.0-37.0) g/dL RDW Std Deviation (28.0-62.0) fl RDW Coeff of Nilay (11.0-15.0) % Plt Count (150-400) K/uL MPV (7.40-12.00) fL Neut % (Auto) (48.0-80.0) % Lymph % (Auto) (16.0-40.0) % [place] % (Auto) (0.0-15.0) % Eos % (Auto) (0.0-7.0) % Baso % (Auto) (0.0-1.5) % Neut # (Auto) (1.4-5.7) K/uL Lymph # (Auto) (0.6-2.4) K/uL [place] # (Auto) (0.0-0.8) K/uL Eos # (Auto) (0.0-0.7) K/uL Baso # (Auto) (0.0-0.1) K/uL Nucleated RBC % /100WBC Nucleated RBCs # K/uL INR Sodium (136-145) mmol/L Potassium (3.5-5.1) mmol/L Chloride (98-107) mmol/L Carbon Dioxide (21.0-32.0) mmol/L BUN (7.0-18.0) mg/dL Creatinine (0.6-1.0) mg/dL Est Cr Clr Drug Dosing mL/min Estimated GFR (MDRD) ml/min Glucose (74-106) mg/dL Calcium (8.5-10.1) mg/dL Magnesium (1.8-2.4) mg/dL Total Bilirubin (0.2-1.0) mg/dL AST (15-37) IU/L ALT (14-63) IU/L Alkaline Phosphatase (46-116) U/L Creatine Kinase (26-308) U/L Troponin I (0.000-0.056) ng/mL B-Natriuretic Peptide 59 (<100) PG/ML Total Protein (6.4-8.2) g/dL Albumin (3.4-5.0) g/dL Globulin (2.6-4.0) g/dL Albumin/Globulin Ratio (0.9-1.6) Meds: Medications Generic Name Dose Route Start Last Admin Trade Name Freq PRN Reason Stop Dose Admin Sodium Chloride 1,000 mls @ 999 mls/hr 09/14/19 08:30 09/14/19 08:19 Normal Saline IV 999 mls/hr ASDIRECTED JASON Administration Potassium Chloride 20 meq/ 50 mls @ 25 mls/hr 09/14/19 08:51 Premix IV 09/14/19 10:50 ONETIME ONE Sodium Chloride 10 ml 09/14/19 07:59 09/14/19 08:20 Saline Flush FLUSH 10 ml ASDIRECTED PRN Administration Keep Vein Open Sodium Chloride 2.5 ml 09/14/19 07:59 09/14/19 08:21 Saline Flush FLUSH 2.5 ml ASDIRECTED PRN Administration Keep Vein Open Sodium Chloride 10 ml 09/14/19 07:59 09/14/19 08:21 Normal Saline IV 10 ml ASDIRECTED PRN Administration IV Use Discontinued Medications Generic Name Dose Route Start Last Admin Trade Name Nicole PRN Reason Stop Dose Admin Adenosine 6 mg 09/14/19 08:15 09/14/19 08:18 Adenocard IVPUSH 09/14/19 08:16 6 mg NOW ONE Administration Adenosine 12 mg 09/14/19 08:16 09/14/19 08:18 Adenocard IVPUSH 09/14/19 08:17 12 mg NOW ONE Administration Diltiazem HCl Confirm 09/14/19 07:56 09/14/19 08:20 Diltiazem Administered 09/14/19 07:57 Not Given Dose 25 mg .ROUTE .STK-MED ONE Diltiazem HCl Confirm 09/14/19 08:02 09/14/19 08:20 Diltiazem Administered 09/14/19 08:03 Not Given Dose 25 mg .ROUTE .STK-MED ONE Diltiazem HCl 20 mg 09/14/19 08:16 09/14/19 08:19 Diltiazem IVPUSH 09/14/19 08:17 20 mg ONETIME ONE Administration Diltiazem HCl 20 mg 09/14/19 08:16 09/14/19 08:20 Diltiazem IVPUSH 09/14/19 08:17 20 mg ONETIME ONE Administration Sodium Chloride 1,000 mls @ 1,000 mls/hr 09/14/19 07:59 09/14/19 08:19 Normal Saline IV 09/14/19 08:58 1,000 mls/hr .BOLUS ONE Administration Ondansetron HCl Confirm 09/14/19 07:50 09/14/19 08:20 Zofran Administered 09/14/19 07:51 Not Given Dose 4 mg .ROUTE .STK-MED ONE Ondansetron HCl 4 mg 09/14/19 08:21 09/14/19 08:21 Zofran IVPUSH 09/14/19 08:22 4 mg ONETIME ONE Administration Phytonadione 2.5 mg 09/14/19 08:53 Mephyton PO 09/14/19 08:54 ONETIME ONE Potassium Chloride 40 meq 09/14/19 08:50 Potassium Chloride PO 09/14/19 08:51 ONETIME ONE Departure - Departure Time of Disposition: 09:00 Disposition: Admitted As Inpatient 68 Condition: Fair Clinical Impression: Palpitations Referrals: PCP,None [Primary Care Provider] - Forms: ED Department Discharge Sepsis Event Note - Evaluation Sepsis Screening Result: No Definite Risk - Focused Exam Vital Signs: Vital Signs Temp Pulse Resp BP 09/14/19 07:41 35.6 C 172 H 20 117/58 L Date Exam was Performed: 09/14/19 Time Exam was Performed: 09:06 - My Orders Last 24 Hours: My Active Orders 09/14/19 07:59 Cardiac Monitoring [RC] . DIRECTED UA W/MICROSCOPIC [URIN] Stat Sodium Chloride 0.9% [Normal Saline] 10 ml IV ASDIRECTED PRN Sodium Chloride 0.9% [Saline Flush] 10 ml FLUSH ASDIRECTED PRN Sodium Chloride 0.9% [Saline Flush] 2.5 ml FLUSH ASDIRECTED PRN Peripheral IV Insertion Adult [OM.PC] Stat Saline Lock Insert [OM.PC] Stat 09/14/19 08:30 Sodium Chloride 0.9% [Normal Saline] 1,000 ml IV ASDIRECTED 09/14/19 08:31 EKG 12 Lead [EKG Documentation Completion] [RC] STAT 09/14/19 08:51 Potassium Chloride Riders [KCL 20 MEQ in Water 50 ML] 20 meq Premix Bag 1 bag IV ONETIME - Assessment/Plan Last 24 Hours: My Active Orders 09/14/19 07:59 Cardiac Monitoring [RC] . DIRECTED UA W/MICROSCOPIC [URIN] Stat Sodium Chloride 0.9% [Normal Saline] 10 ml IV ASDIRECTED PRN Sodium Chloride 0.9% [Saline Flush] 10 ml FLUSH ASDIRECTED PRN Sodium Chloride 0.9% [Saline Flush] 2.5 ml FLUSH ASDIRECTED PRN Peripheral IV Insertion Adult [OM.PC] Stat Saline Lock Insert [OM.PC] Stat 09/14/19 08:30 Sodium Chloride 0.9% [Normal Saline] 1,000 ml IV ASDIRECTED 09/14/19 08:31 EKG 12 Lead [EKG Documentation Completion] [RC] STAT 09/14/19 08:51 Potassium Chloride Riders [KCL 20 MEQ in Water 50 ML] 20 meq Premix Bag 1 bag IV ONETIME Assessment:: Pt is a 68 yo F with hx of afib presenting with HR in 180s, appearing to be SVT vs sinus tachycardia as there is no evidence of afib at this time. pt was HD stable and given adenosine 6mg and 12mg without response. Pt was given diltiazem for rate control and 1.5 L of NS with improvement of tachycardia. Pt remained HD stable throughout. Pt labs were remarkable for elevated WBC of 13, but given afebrile and no infectious symptoms, sepsis is not suspected. Pt has hypokalemia which is repleated in the ED. INR elevated but no evidence of major bleeding so Vit K given and coumadin held. Pt will be admitted to the medicine service for serial trop, cardiology evaluation and INR management. Plan: Admit Vit K Potassium cardiology eval
[2019-09-14] MEDS ORDERED: Potassium Chloride 10% 20 MEQ/15 ML Soln 30 ML UD Cup PO ONE (08:50)
[2019-09-14] MEDS ORDERED: Potassium Chloride Riders 20 MEQ in Premix Bag 1 BAG IV ONE (08:51)
[2019-09-14] MEDS ORDERED: Phytonadione 5 MG Tab PO ONE (08:53)
[2019-09-14] MEDS ORDERED: Magnesium Sulfate/Water 2 GM in Premix Bag 1 BAG IV ONE (09:19)
[2019-09-14] MEDS ORDERED: Diltiazem 120 MG Cap.CD PO SCH (09:45)
[2019-09-14] MEDS ORDERED: Ondansetron 4 MG/2 ML SDV IVPUSH PRN (11:02)
[2019-09-14] MEDS ORDERED: Acetaminophen 325 MG Tab PO PRN (11:02)
--- NOTE | 2019-09-14 11:05 | PCM.HP.2 ---
H&P History of Present Illness - General Date of Service: 09/14/19 Admit Problem/Dx: Admission Diagnosis/Problem Admission Diagnosis/Problem INR (international normal ratio) abnormal Source of Information: Patient History Limitations: Reports: No Limitations - History of Present Illness Initial Comments - Free Text/Narative: This 68 year old female with pmh of afib on chronic anticoagulation with Warfarin and POSTULANT presented to the ED today with complaints of not feeling well for the last few days and starting having significant palpitations and nausea and dizziness this morning. She reports this started a couple days ago and she has not felt well, not eating or eating as usual. She denies abdominal pain or diarrhea. Just nausea and no appetite. She reports she has been taking all her medications per usual. She denies fevers, chills, chest pain or shortness of breath. She reports her last INR was 3.2 in July and was due to be check but she didn't feel well so she didn't come in. She denies overt bleeding no alf blood stools, but reports it is black in color. Some mild nose bleeds over the last couple days. She reports she smokes, no alcohol or recreational drug use. In the ED she was noted to be in questionable SVT, given adenosine 6mg and 12 mg with no change in HR. She then was given Diltiazem and HR improved to SR 80s. BP stable. She remained hemodynamically stable throughout. She denied chest pain. Labwork revealed hypokalemia, 2.8 and Hypomagnesemia 1.7. INR greater than 14.54. She was given Vitamin k 2.5 mg. She will be admitted for Supratherapeutic INR, Afib RVR. PCP, Dr Albrecht [employer] Trainee Dr Rivera - Related Data Allergies/Adverse Reactions: Allergies Allergy/AdvReac Type Severity Reaction Status Date / Time Sulfa (Sulfonamide Allergy Hives Verified 09/14/19 12:10 Antibiotics) Home Medications: Home Meds Multivitamin [Multivitamins] 1 tab PO DAILY 07/29/16 [History] Magnesium Oxide 400 mg PO BID #30 tablet 09/07/16 [Rx] Ascorbic Acid [Vitamin C] 1,000 mg PO BID 07/02/19 [History] Diltiazem HCl [Diltiazem 24Hr ER] 120 mg PO DAILY #30 cap.er.24h 10/05/19 [Rx] Glycopyrrolate/Formoterol Fum [Bevespi Aerosphere Inhaler] 2 puff INH BID [History] Warfarin Sodium 2.5 mg PO .TUE,WED,FRI,SAT,SUN 07/02/19 [History] Warfarin Sodium 5 mg PO .MON & THUR 07/02/19 [History] Past Medical History HEENT History: Reports: Allergic Rhinitis, Cataract Other HEENT History: wears glasses, has top denture and bottom partial Cardiovascular History: Reports: Afib Respiratory History: Reports: None, Other (See Below) Other Respiratory History: care home smoker- Primary started her on inhaler Gastrointestinal History: Reports: Hepatitis Other Gastrointestinal History: hx hepatitis C Genitourinary History: Reports: None SPORTS ATTORNEY History: Reports: None Musculoskeletal History: Reports: None Neurological History: Reports: None Psychiatric History: Reports: Anxiety, Depression Endocrine/Metabolic History: Reports: None Hematologic History: Reports: Blood Transfusion(s) Immunologic History: Reports: None Oncologic (Cancer) History: Reports: None Dermatologic History: Reports: None - Infectious Disease History Infectious Disease History: Reports: Hepatitis C - Past Surgical History Head Surgeries/Procedures: Reports: None HEENT Surgical History: Reports: Adenoidectomy, Naso-Sinus Surgery, Tonsillectomy Cardiovascular Surgical History: Reports: None Respiratory Surgical History: Reports: None GI Surgical History: Reports: None Female Surgical History: Reports: Other (See Below) Other Female Surgeries/Procedures: states she had her "ureters stretched" as a child Endocrine Surgical History: Reports: None Neurological Surgical History: Reports: None Musculoskeletal Surgical History: Reports: Arthroscopic Knee, Shoulder Surgery Dermatological Surgical History: Reports: None Social & Family History - Family History Family Medical History: Noncontributory - Tobacco Use Smoking Status *Q: Current Every Day Smoker Years of Tobacco use: 50 Packs/Tins Daily: 1 - Caffeine Use Caffeine Use: Reports: Tea - Alcohol Use Alcohol Use History: No - Recreational Drug Use Recreational Drug Use: Yes Recreational Drug Type: Reports: Marijuana/Hashish Recreational Drug Use Frequency: Socially H&P Review of Systems - Review of Systems: Review Of Systems: See Below General: Reports: Malaise, Fatigue. Denies: Fever, Chills HEENT: Reports: No Symptoms. Denies: Headaches, Sinus Congestion, Vertigo Pulmonary: Reports: No Symptoms. Denies: Shortness of Breath Cardiovascular: Reports: Palpitations, Lightheadedness. Denies: Chest Pain, Syncope Gastrointestinal: Reports: Black Stool, Decreased Appetite, Nausea. Denies: Abdominal Pain, Vomiting Genitourinary: Reports: No Symptoms. Denies: Dysuria, Frequency, Burning Musculoskeletal: Reports: No Symptoms Psychiatric: Reports: No Symptoms Neurological: Reports: No Symptoms Hematologic/Lymphatic: Reports: No Symptoms Immunologic: Reports: No Symptoms Exam - Exam Exam: See Below - Vital Signs Vital Signs: Last Vital Signs Temp 98.2 F 09/14/19 11:01 Pulse 84 09/14/19 11:01 Resp 18 09/14/19 11:01 BP 103/64 09/14/19 11:01 Pulse Ox 95 09/14/19 11:01 Weight: 62.7 kg - Exam General: Alert, Oriented, Cooperative Neck: Supple, Trachea Midline Lungs: Clear to Auscultation, Normal Respiratory Effort Cardiovascular: Regular Rate, Regular Rhythm. No: Systolic Murmur GI/Abdominal Exam: Normal Bowel Sounds, Soft, Non-Tender Back Exam: Normal Inspection, Full Range of Motion Extremities: Normal Inspection, Normal Range of Motion, Non-Tender, No Pedal Edema Neuro Extensive - Mental Status: Alert, Oriented x3 Neuro Extensive - Motor, Sensory, Reflexes: CN II-XII Intact Psychiatric: Alert, Normal Affect, Normal Mood - Patient Data Lab Results Last 24 hrs: Laboratory Results - last 24 hr 09/14/19 09/14/19 09/14/19 Range/Units 07:45 07:45 07:58 WBC 13.12 H (4.0-11.0) K/uL RBC 5.23 (4.30-5.90) M/uL Hgb 15.2 (12.0-16.0) g/dL Hct 44.5 (36.0-46.0) % MCV 85.1 (80.0-98.0) fL MCH 29.1 (27.0-32.0) pg MCHC 34.2 (31.0-37.0) g/dL RDW Std Deviation 51.1 (28.0-62.0) fl RDW Coeff of Nilay 17 H (11.0-15.0) % Plt Count 216 (150-400) K/uL MPV 9.60 (7.40-12.00) fL Neut % (Auto) 66.9 (48.0-80.0) % Lymph % (Auto) 24.2 (16.0-40.0) % Forest % (Auto) 6.6 (0.0-15.0) % Eos % (Auto) 1.8 (0.0-7.0) % Baso % (Auto) 0.5 (0.0-1.5) % Neut # (Auto) 8.8 H (1.4-5.7) K/uL Lymph # (Auto) 3.2 H (0.6-2.4) K/uL Forest # (Auto) 0.9 H (0.0-0.8) K/uL Eos # (Auto) 0.2 (0.0-0.7) K/uL Baso # (Auto) 0.1 (0.0-0.1) K/uL Nucleated RBC % 0.0 /100WBC Nucleated RBCs # 0 K/uL INR > 14.54 H* Sodium 135 L (136-145) mmol/L Potassium 2.8 L (3.5-5.1) mmol/L Chloride 93 L (98-107) mmol/L Carbon Dioxide 29.9 (21.0-32.0) mmol/L BUN 20 H (7.0-18.0) mg/dL Creatinine 1.3 H (0.6-1.0) mg/dL Est Cr Clr Drug Dosing 39.85 mL/min Estimated GFR (MDRD) 41.0 ml/min Glucose 144 H (74-106) mg/dL Calcium 9.8 (8.5-10.1) mg/dL Magnesium 1.7 L (1.8-2.4) mg/dL Total Bilirubin 0.8 (0.2-1.0) mg/dL AST 72 H (15-37) IU/L ALT 56 (14-63) IU/L Alkaline Phosphatase 82 (46-116) U/L Creatine Kinase 49 (26-308) U/L Troponin I < 0.050 (0.000-0.056) ng/mL B-Natriuretic Peptide (<100) PG/ML Total Protein 7.8 (6.4-8.2) g/dL Albumin 3.7 (3.4-5.0) g/dL Globulin 4.1 H (2.6-4.0) g/dL Albumin/Globulin Ratio 0.9 (0.9-1.6) 09/14/19 Range/Units 07:58 WBC (4.0-11.0) K/uL RBC (4.30-5.90) M/uL Hgb (12.0-16.0) g/dL Hct (36.0-46.0) % MCV (80.0-98.0) fL MCH (27.0-32.0) pg MCHC (31.0-37.0) g/dL RDW Std Deviation (28.0-62.0) fl RDW Coeff of Nilay (11.0-15.0) % Plt Count (150-400) K/uL MPV (7.40-12.00) fL Neut % (Auto) (48.0-80.0) % Lymph % (Auto) (16.0-40.0) % Forest % (Auto) (0.0-15.0) % Eos % (Auto) (0.0-7.0) % Baso % (Auto) (0.0-1.5) % Neut # (Auto) (1.4-5.7) K/uL Lymph # (Auto) (0.6-2.4) K/uL Forest # (Auto) (0.0-0.8) K/uL Eos # (Auto) (0.0-0.7) K/uL Baso # (Auto) (0.0-0.1) K/uL Nucleated RBC % /100WBC Nucleated RBCs # K/uL INR Sodium (136-145) mmol/L Potassium (3.5-5.1) mmol/L Chloride (98-107) mmol/L Carbon Dioxide (21.0-32.0) mmol/L BUN (7.0-18.0) mg/dL Creatinine (0.6-1.0) mg/dL Est Cr Clr Drug Dosing mL/min Estimated GFR (MDRD) ml/min Glucose (74-106) mg/dL Calcium (8.5-10.1) mg/dL Magnesium (1.8-2.4) mg/dL Total Bilirubin (0.2-1.0) mg/dL AST (15-37) IU/L ALT (14-63) IU/L Alkaline Phosphatase (46-116) U/L Creatine Kinase (26-308) U/L Troponin I (0.000-0.056) ng/mL B-Natriuretic Peptide 59 (<100) PG/ML Total Protein (6.4-8.2) g/dL Albumin (3.4-5.0) g/dL Globulin (2.6-4.0) g/dL Albumin/Globulin Ratio (0.9-1.6) Result Diagrams: 09/14/19 07:45 09/14/19 14:16 Sepsis Event Note - Evaluation Sepsis Screening Result: No Definite Risk - Focused Exam Vital Signs: Vital Signs Temp Pulse Resp BP Pulse Ox 09/14/19 11:01 98.2 F 84 18 103/64 95 09/14/19 09:20 84 18 95/59 L 2 L 09/14/19 09:05 80 18 95/61 99 09/14/19 08:32 75 18 94/67 100 09/14/19 08:12 45 L 18 88/61 L 100 09/14/19 08:01 166 H 20 97/62 99 09/14/19 07:41 96.0 F 172 H 20 117/58 L Date Exam was Performed: 09/14/19 Time Exam was Performed: 16:04 - Problem List (1) Palpitations SNOMED Code(s): 87727837 ICD Code: R00.2 - PALPITATIONS Status: Acute Current Visit: Yes (2) Atrial fibrillation with RVR SNOMED Code(s): 796921377390355 ICD Code: I48.91 - UNSPECIFIED ATRIAL FIBRILLATION Status: Acute Priority : High Current Visit: No Problem Details: With RVR (3) Supratherapeutic INR SNOMED Code(s): 484648196 ICD Code: R79.1 - ABNORMAL COAGULATION PROFILE Status: Acute Current Visit: No (4) Smoker SNOMED Code(s): 06624320 ICD Code: F17.200 - NICOTINE DEPENDENCE, UNSPECIFIED, UNCOMPLICATED Status : Chronic Current Visit: No (5) Dehydration SNOMED Code(s): 61470267 ICD Code: E86.0 - DEHYDRATION Status: Acute Priority: High Current Visit: No (6) Nausea and vomiting SNOMED Code(s): 86767628 ICD Code: R11.2 - NAUSEA WITH VOMITING, UNSPECIFIED Status: Acute Priority: High Current Visit: No Qualifiers: Vomiting type: unspecified Vomiting Intractability: non-intractable Qualified Code(s): R11.2 - Nausea with vomiting, unspecified Problem List Initiated/Reviewed/Updated: Yes Orders Last 24hrs: Active Orders 24 hr Category Date Time Status Admission Status [Patient Status] [ADT] Stat ADT 09/14/19 09:11 Active Cardiac Monitoring [RC] . DIRECTED Care 09/14/19 07:59 Active EKG 12 Lead [EKG Documentation Completion] [RC] STAT Care 09/14/19 08:31 Active Height and Weight [RC] DAILY Care 09/14/19 11:02 Ordered Intake and Output [RC] QSHIFT Care 09/14/19 11:02 Ordered Notify Provider Consults [RC] ASDIRECTED Care 09/14/19 11:03 Ordered Oxygen Therapy [RC] PRN Care 09/14/19 11:02 Ordered Telemetry Monitoring [Cardiac Monitoring] [RC] . Care 09/14/19 11:01 Ordered DIRECTED VTE/DVT Education [RC] PER UNIT ROUTINE Care 09/14/19 11:02 Ordered Vital Signs [RC] Q4H Care 09/14/19 11:02 Ordered Consult to Physician [CONS] Routine Cons 09/14/19 11:02 Ordered Heart Healthy Diet [DIET] Diet 09/14/19 Lunch Ordered BASIC METABOLIC PANEL,BMP [CHEM] AM Lab 09/15/19 05:11 Ordered CBC WITH AUTO DIFF [HEME] AM Lab 09/15/19 05:11 Ordered INR,PT,PROTHROMBIN TIME [COAG] AM Lab 09/15/19 05:11 Ordered UA W/MICROSCOPIC [URIN] Stat Lab 09/14/19 07:59 Ordered Acetaminophen [Tylenol] Med 09/14/19 11:02 Ordered 650 mg PO Q4H PRN Diltiazem [Cardizem CD] Med 09/14/19 09:45 Active 120 mg PO DAILY Ondansetron [Zofran] Med 09/14/19 11:02 Ordered 4 mg IVPUSH Q4H PRN Sodium Chloride 0.9% [Normal Saline] Med 09/14/19 07:59 Active 10 ml IV ASDIRECTED PRN Sodium Chloride 0.9% [Normal Saline] 1,000 ml Med 09/14/19 08:30 Active IV ASDIRECTED Sodium Chloride 0.9% [Saline Flush] Med 09/14/19 07:59 Active 10 ml FLUSH ASDIRECTED PRN Sodium Chloride 0.9% [Saline Flush] Med 09/14/19 07:59 Active 2.5 ml FLUSH ASDIRECTED PRN Peripheral IV Insertion Adult [OM.PC] Stat Ot 09/14/19 07:59 Ordered Saline Lock Insert [OM.PC] Stat Oth 09/14/19 07:59 Ordered Resuscitation Status Routine Resus Stat 09/14/19 11:02 Ordered Medication Orders Acetaminophen (Tylenol) 650 mg PO Q4H PRN PRN Reason: Pain (Mild 1-3)/fever Diltiazem HCl (Cardizem Cd) 120 mg PO DAILY JASON Sodium Chloride (Normal Saline) 1,000 mls @ 999 mls/hr IV ASDIRECTED JASON Last Admin: 09/14/19 08:19 Dose: 999 mls/hr Infusion: 09/14/19 08:19 Dose: 999 mls/hr Admin: 09/14/19 08:18 Dose: 999 mls/hr Infusion: 09/14/19 08:18 Dose: 999 mls/hr Admin: 09/14/19 08:17 Dose: 999 mls/hr Ondansetron HCl (Zofran) 4 mg IVPUSH Q4H PRN PRN Reason: Nausea Sodium Chloride (Saline Flush) 10 ml FLUSH ASDIRECTED PRN PRN Reason: Keep Vein Open Last Admin: 09/14/19 08:20 Dose: 10 ml Sodium Chloride (Saline Flush) 2.5 ml FLUSH ASDIRECTED PRN PRN Reason: Keep Vein Open Last Admin: 09/14/19 08:21 Dose: 2.5 ml Sodium Chloride (Normal Saline) 10 ml IV ASDIRECTED PRN PRN Reason: IV Use Last Admin: 09/14/19 08:21 Dose: 10 ml Assessment/Plan Comment:: This 68 year old female admitted with Afib RVR and supratherapeutic INR 1. Afib RVR: Monitor on telemetry. Trend troponins. HR stable, continue Diltiazem. Likely secondary to electrolyte abnormalities. Monitor Potassium and Magnesium Given another bolus for dehydration. 2. Supratherapeutic INR: Hold Warfarin. Monitor INR in am. Does report balck stools, obtain Occult. Protonix 40 mg IV BID for now. Recommend outpatient endoscopy when INR stable. Urine noted to have blood in, repeat in a week or so if continues recommend outpatient work up. 3. COPD: Continue inhalers VTE prophylaxis: SCDs Dispo: 1-2 days - Mortality Measure Prognosis:: Good
[2019-09-14] MEDS ORDERED: Sodium Chloride 0.9% 500 ML IV SCH (11:30)
[2019-09-14] MEDS: GLYCOPYRROLATE INH SCH ×2 (12:43→21:04)
[2019-09-14] MEDS: FORMOTEROL FUM INH SCH ×2 (12:43→21:04)
[2019-09-14] MEDS: Pantoprazole 40 MG in Sodium Chloride 0.9% 10 ML IV SCH ×2 (12:44→22:44)
[2019-09-14] MEDS ORDERED: Diltiazem 25 MG/5 ML SDV IVPUSH PRN (16:02)
[2019-09-14] MEDS: Ascorbic Acid 500 MG Tab PO SCH (21:04)
[2019-09-15 05:33] LABS: BLOOD UREA NITROGEN,BUN 14 mg/dL (7.0-18.0); CHLORIDE,CL 102 mmol/L (98-107); GLUCOSE RANDOM 91 mg/dL (74-106); POTASSIUM,K 4.2 mmol/L (3.5-5.1); SODIUM,NA 136 mmol/L (136-145)
[2019-09-15] MEDS ORDERED: Diltiazem 120 MG Cap.CD PO SCH (09:00)
[2019-09-15] MEDS ORDERED: MULTIVITAMIN PO SCH (09:00)
--- NOTE | 2019-09-15 09:12 | PCM.PN ---
- General Info Date of Service: 09/15/19 Admission Dx/Problem (Free Text): Admission Diagnosis/Problem Admission Diagnosis/Problem INR (international normal ratio) abnormal Subjective Update: Feeling hungry this mornig, no chest pain no SOB. No palpitations and no nausea. Reports dark stool this morning. No other symptoms, wants to eat! Functional Status: Reports: Pain Controlled, Tolerating Diet, Ambulating, Urinating - Review of Systems General: Reports: No Symptoms HEENT: Reports: No Symptoms Pulmonary: Reports: No Symptoms. Denies: Shortness of Breath Cardiovascular: Reports: No Symptoms. Denies: Chest Pain, Palpitations Gastrointestinal: Reports: Melena, Nausea, Vomiting. Denies: Abdominal Pain Genitourinary: Reports: No Symptoms. Denies: Dysuria, Frequency, Burning Skin: Reports: No Symptoms Neurological: Reports: No Symptoms Psychiatric: Reports: No Symptoms - Patient Data Vitals - Most Recent: Last Vital Signs Temp 96.8 F 09/15/19 07:50 Pulse 77 09/15/19 07:50 Resp 18 09/15/19 07:50 BP 110/67 09/15/19 07:50 Pulse Ox 94 L 09/15/19 07:50 Weight - Most Recent: 65.7 kg I&O - Last 24 Hours: Intake & Output 09/14/19 09/15/19 09/15/19 22:59 06:59 14:59 Intake Total 640 400 Output Total 600 700 Balance 40 -300 Lab Results Last 24 Hours: Laboratory Results - last 24 hr 09/14/19 09/14/19 09/14/19 Range/Units 11:02 14:16 19:43 WBC (4.0-11.0) K/uL RBC (4.30-5.90) M/uL Hgb (12.0-16.0) g/dL Hct (36.0-46.0) % MCV (80.0-98.0) fL MCH (27.0-32.0) pg MCHC (31.0-37.0) g/dL RDW Std Deviation (28.0-62.0) fl RDW Coeff of Nilay (11.0-15.0) % Plt Count (150-400) K/uL MPV (7.40-12.00) fL Neut % (Auto) (48.0-80.0) % Lymph % (Auto) (16.0-40.0) % Mcdowell % (Auto) (0.0-15.0) % Eos % (Auto) (0.0-7.0) % Baso % (Auto) (0.0-1.5) % Neut # (Auto) (1.4-5.7) K/uL Lymph # (Auto) (0.6-2.4) K/uL Mcdowell # (Auto) (0.0-0.8) K/uL Eos # (Auto) (0.0-0.7) K/uL Baso # (Auto) (0.0-0.1) K/uL INR Sodium (136-145) mmol/L Potassium 4.3 (3.5-5.1) mmol/L Chloride (98-107) mmol/L Carbon Dioxide (21.0-32.0) mmol/L BUN (7.0-18.0) mg/dL Creatinine (0.6-1.0) mg/dL Est Cr Clr Drug Dosing mL/min Estimated GFR (MDRD) ml/min Glucose (74-106) mg/dL Calcium (8.5-10.1) mg/dL Magnesium (1.8-2.4) mg/dL Troponin I < 0.050 (0.000-0.056) ng/mL Urine Color YELLOW Urine Appearance HAZY Urine pH 8.5 H (5.0-8.0) Ur Specific [place] 1.020 (1.001-1.035) Urine Protein TRACE H (NEGATIVE) mg/dL Urine Glucose (UA) NEGATIVE (NEGATIVE) mg/dL Urine Ketones NEGATIVE (NEGATIVE) mg/dL Urine Occult Blood LARGE H (NEGATIVE) Urine Nitrite NEGATIVE (NEGATIVE) Urine Bilirubin NEGATIVE (NEGATIVE) Urine Urobilinogen 0.2 (<2.0) EU/dL Ur Leukocyte Esterase NEGATIVE (NEGATIVE) Urine RBC 20-30 (0-2/HPF) Urine WBC 0-4 (0-5/HPF) Ur Epithelial Cells RARE (NONE-FEW) Urine Bacteria FEW (NEGATIVE) Urine Mucus FEW (NONE-MOD) 09/15/19 09/15/19 09/15/19 Range/Units 01:40 04:58 04:58 WBC 8.56 (4.0-11.0) K/uL RBC 3.26 L (4.30-5.90) M/uL Hgb 9.6 L (12.0-16.0) g/dL Hct 28.6 L (36.0-46.0) % MCV 87.7 (80.0-98.0) fL MCH 29.4 (27.0-32.0) pg MCHC 33.6 (31.0-37.0) g/dL RDW Std Deviation 52.3 (28.0-62.0) fl RDW Coeff of Nilay 17 H (11.0-15.0) % Plt Count 144 L (150-400) K/uL MPV 9.30 (7.40-12.00) fL Neut % (Auto) 60.4 (48.0-80.0) % Lymph % (Auto) 27.5 (16.0-40.0) % Mcdowell % (Auto) 7.7 (0.0-15.0) % Eos % (Auto) 3.9 (0.0-7.0) % Baso % (Auto) 0.5 (0.0-1.5) % Neut # (Auto) 5.2 (1.4-5.7) K/uL Lymph # (Auto) 2.4 (0.6-2.4) K/uL Mcdowell # (Auto) 0.7 (0.0-0.8) K/uL Eos # (Auto) 0.3 (0.0-0.7) K/uL Baso # (Auto) 0.0 (0.0-0.1) K/uL INR 5.27 Sodium (136-145) mmol/L Potassium (3.5-5.1) mmol/L Chloride (98-107) mmol/L Carbon Dioxide (21.0-32.0) mmol/L BUN (7.0-18.0) mg/dL Creatinine (0.6-1.0) mg/dL Est Cr Clr Drug Dosing mL/min Estimated GFR (MDRD) ml/min Glucose (74-106) mg/dL Calcium (8.5-10.1) mg/dL Magnesium (1.8-2.4) mg/dL Troponin I < 0.050 (0.000-0.056) ng/mL Urine Color Urine Appearance Urine pH (5.0-8.0) Ur Specific [place] (1.001-1.035) Urine Protein (NEGATIVE) mg/dL Urine Glucose (UA) (NEGATIVE) mg/dL Urine Ketones (NEGATIVE) mg/dL Urine Occult Blood (NEGATIVE) Urine Nitrite (NEGATIVE) Urine Bilirubin (NEGATIVE) Urine Urobilinogen (<2.0) EU/dL Ur Leukocyte Esterase (NEGATIVE) Urine RBC (0-2/HPF) Urine WBC (0-5/HPF) Ur Epithelial Cells (NONE-FEW) Urine Bacteria (NEGATIVE) Urine Mucus (NONE-MOD) 09/15/19 09/15/19 Range/Units 04:58 04:58 WBC (4.0-11.0) K/uL RBC (4.30-5.90) M/uL Hgb (12.0-16.0) g/dL Hct (36.0-46.0) % MCV (80.0-98.0) fL MCH (27.0-32.0) pg MCHC (31.0-37.0) g/dL RDW Std Deviation (28.0-62.0) fl RDW Coeff of Nilay (11.0-15.0) % Plt Count (150-400) K/uL MPV (7.40-12.00) fL Neut % (Auto) (48.0-80.0) % Lymph % (Auto) (16.0-40.0) % Mcdowell % (Auto) (0.0-15.0) % Eos % (Auto) (0.0-7.0) % Baso % (Auto) (0.0-1.5) % Neut # (Auto) (1.4-5.7) K/uL Lymph # (Auto) (0.6-2.4) K/uL Mcdowell # (Auto) (0.0-0.8) K/uL Eos # (Auto) (0.0-0.7) K/uL Baso # (Auto) (0.0-0.1) K/uL INR Sodium 136 (136-145) mmol/L Potassium 4.2 (3.5-5.1) mmol/L Chloride 102 (98-107) mmol/L Carbon Dioxide 27.0 (21.0-32.0) mmol/L BUN 14 (7.0-18.0) mg/dL Creatinine 0.9 (0.6-1.0) mg/dL Est Cr Clr Drug Dosing 57.56 mL/min Estimated GFR (MDRD) > 60.0 ml/min Glucose 91 (74-106) mg/dL Calcium 8.1 L (8.5-10.1) mg/dL Magnesium 1.9 (1.8-2.4) mg/dL Troponin I (0.000-0.056) ng/mL Urine Color Urine Appearance Urine pH (5.0-8.0) Ur Specific [place] (1.001-1.035) Urine Protein (NEGATIVE) mg/dL Urine Glucose (UA) (NEGATIVE) mg/dL Urine Ketones (NEGATIVE) mg/dL Urine Occult Blood (NEGATIVE) Urine Nitrite (NEGATIVE) Urine Bilirubin (NEGATIVE) Urine Urobilinogen (<2.0) EU/dL Ur Leukocyte Esterase (NEGATIVE) Urine RBC (0-2/HPF) Urine WBC (0-5/HPF) Ur Epithelial Cells (NONE-FEW) Urine Bacteria (NEGATIVE) Urine Mucus (NONE-MOD) Med Orders - Current: Current Medications Acetaminophen (Tylenol) 650 mg PO Q4H PRN PRN Reason: Pain (Mild 1-3)/fever Ascorbic Acid (Vitamin C) 1,000 mg PO BID [facility] Last Admin: 09/14/19 21:04 Dose: 1,000 mg Diltiazem HCl (Cardizem Cd) 120 mg PO DAILY [facility] Diltiazem HCl (Diltiazem) 10 mg IVPUSH Q3H PRN PRN Reason: Afib HR >120 sustained Pantoprazole Sodium 40 mg/ (Sodium Chloride) 10 mls @ 300 mls/hr IV Q12H [facility] Last Admin: 09/14/19 22:44 Dose: 300 mls/hr Ondansetron HCl (Zofran) 4 mg IVPUSH Q4H PRN PRN Reason: Nausea Glycopyrrolate/Formoterol Fum [ Bevespi Aerosphere Inhaler 2 each INH BID [facility] Last Admin: 09/14/19 21:04 Dose: 2 each Multivitamin [ (Multivitamins] 1 Tab) 1 each PO DAILY [facility] Sodium Chloride (Saline Flush) 10 ml FLUSH ASDIRECTED PRN PRN Reason: Keep Vein Open Last Admin: 09/14/19 08:20 Dose: 10 ml Sodium Chloride (Saline Flush) 2.5 ml FLUSH ASDIRECTED PRN PRN Reason: Keep Vein Open Last Admin: 09/14/19 08:21 Dose: 2.5 ml Sodium Chloride (Normal Saline) 10 ml IV ASDIRECTED PRN PRN Reason: IV Use Last Admin: 09/14/19 08:21 Dose: 10 ml Discontinued Medications Adenosine (Adenocard) 6 mg IVPUSH NOW ONE Stop: 09/14/19 08:16 Last Admin: 09/14/19 08:18 Dose: 6 mg Adenosine (Adenocard) 12 mg IVPUSH NOW ONE Stop: 09/14/19 08:17 Last Admin: 09/14/19 08:18 Dose: 12 mg Diltiazem HCl (Diltiazem) Confirm Administered Dose 25 mg .ROUTE .STK-MED ONE Stop: 09/14/19 07:57 Last Admin: 09/14/19 08:20 Dose: Not Given Diltiazem HCl (Diltiazem) Confirm Administered Dose 25 mg .ROUTE .STK-MED ONE Stop: 09/14/19 08:03 Last Admin: 09/14/19 08:20 Dose: Not Given Diltiazem HCl (Diltiazem) 20 mg IVPUSH ONETIME ONE Stop: 09/14/19 08:17 Last Admin: 09/14/19 08:19 Dose: 20 mg Diltiazem HCl (Diltiazem) 20 mg IVPUSH ONETIME ONE Stop: 09/14/19 08:17 Last Admin: 09/14/19 08:20 Dose: 20 mg Diltiazem HCl (Cardizem Cd) 120 mg PO DAILY [facility] Last Admin: 09/14/19 12:22 Dose: Not Given Sodium Chloride (Normal Saline) 1,000 mls @ 1,000 mls/hr IV .BOLUS ONE Stop: 09/14/19 08:58 Last Admin: 09/14/19 08:19 Dose: 1,000 mls/hr Sodium Chloride (Normal Saline) 1,000 mls @ 999 mls/hr IV ASDIRECTED JASON Last Admin: 09/14/19 08:19 Dose: 999 mls/hr Potassium Chloride 20 meq/ (Premix) 50 mls @ 25 mls/hr IV ONETIME ONE Stop: 09/14/19 10:50 Last Admin: 09/14/19 09:33 Dose: 25 mls/hr Magnesium Sulfate 2 gm/ Premix 50 mls @ 50 mls/hr IV ONETIME ONE Stop: 09/14/19 10:18 Last Admin: 09/14/19 11:47 Dose: 50 mls/hr Phytonadione 2.5 mg/ Sodium (Chloride) 50.25 mls @ 100 mls/hr IV NOW ONE Stop: 09/14/19 09:52 Last Admin: 09/14/19 09:32 Dose: Not Given Sodium Chloride (Normal Saline) 500 mls @ 999 mls/hr IV .BOLUS JASON Last Admin: 09/14/19 16:17 Dose: 999 mls/hr Ondansetron HCl (Zofran) Confirm Administered Dose 4 mg .ROUTE .STK-MED ONE Stop: 09/14/19 07:51 Last Admin: 09/14/19 08:20 Dose: Not Given Ondansetron HCl (Zofran) 4 mg IVPUSH ONETIME ONE Stop: 09/14/19 08:22 Last Admin: 09/14/19 08:21 Dose: 4 mg Phytonadione (Mephyton) 2.5 mg PO ONETIME ONE Stop: 09/14/19 08:54 Last Admin: 09/14/19 09:33 Dose: 2.5 mg Phytonadione (Aquamephyton) 2.5 mg PO ONETIME ONE Stop: 09/14/19 09:16 Last Admin: 09/14/19 09:32 Dose: Not Given Potassium Chloride (Potassium Chloride) 40 meq PO ONETIME ONE Stop: 09/14/19 08:51 Last Admin: 09/14/19 09:32 Dose: 40 meq - Exam General: Alert, Oriented, Cooperative, No Acute Distress Lungs: Clear to Auscultation, Normal Respiratory Effort Cardiovascular: Regular Rate, Regular Rhythm GI/Abdominal Exam: Normal Bowel Sounds, Soft, Non-Tender Extremities: Normal Inspection, Normal Range of Motion, Non-Tender, No Pedal Edema Neurological: No New Focal Deficit Psy/Mental Status: Alert, Normal Affect, Normal Mood Sepsis Event Note - Evaluation Sepsis Screening Result: No Definite Risk - Focused Exam Vital Signs: Vital Signs Temp Pulse Resp BP Pulse Ox 09/15/19 07:50 96.8 F 77 18 110/67 94 L 12/19/19 04:00 97.3 F 76 18 105/60 97 09/15/19 00:00 97.9 F 87 16 99/58 L 95 Date Exam was Performed: 09/15/19 Time Exam was Performed: 12:36 - Problem List & Annotations (1) Palpitations SNOMED Code(s): 42824910 Code(s): R00.2 - PALPITATIONS Status: Acute Current Visit: Yes (2) Atrial fibrillation with RVR SNOMED Code(s): 483336001816801 Code(s): I48.91 - UNSPECIFIED ATRIAL FIBRILLATION Status: Acute Priority : High Current Visit: No Annotation/Comment:: With RVR (3) Supratherapeutic INR SNOMED Code(s): 175964604 Code(s): R79.1 - ABNORMAL COAGULATION PROFILE Status: Acute Current Visit : No (4) Smoker SNOMED Code(s): 63072908 Code(s): F17.200 - NICOTINE DEPENDENCE, UNSPECIFIED, UNCOMPLICATED Status: Chronic Current Visit: No (5) Dehydration SNOMED Code(s): 29550338 Code(s): E86.0 - DEHYDRATION Status: Acute Priority: High Current Visit : No (6) Nausea and vomiting SNOMED Code(s): 46145174 Code(s): R11.2 - NAUSEA WITH VOMITING, UNSPECIFIED Status: Acute Priority : High Current Visit: No Qualifiers: Vomiting type: unspecified Vomiting Intractability: non-intractable Qualified Code(s): R11.2 - Nausea with vomiting, unspecified - Problem List Review Problem List Initiated/Reviewed/Updated: Yes - My Orders Last 24 Hours: My Active Orders 09/14/19 11:01 Telemetry Monitoring [Cardiac Monitoring] [RC] . DIRECTED 09/14/19 11:02 Height and Weight [RC] DAILY Intake and Output [RC] Q12H Oxygen Therapy [RC] PRN VTE/DVT Education [RC] PER UNIT ROUTINE Vital Signs [RC] Q4H Consult to Physician [CONS] Routine Acetaminophen [Tylenol] 650 mg PO Q4H PRN Ondansetron [Zofran] 4 mg IVPUSH Q4H PRN Resuscitation Status Routine 09/14/19 11:03 Notify Provider Consults [RC] ASDIRECTED 09/14/19 11:30 Pantoprazole [ProTONIX IV] 40 mg Sodium Chloride 0.9% [Normal Saline] 10 ml IV Q12H 09/14/19 12:00 Patient's Own Medication [Ptom] 2 each INH BID 09/14/19 16:02 Diltiazem 10 mg IVPUSH Q3H PRN 09/14/19 21:00 Ascorbic Acid [Vitamin C] 1,000 mg PO BID 09/15/19 09:00 Diltiazem [Cardizem CD] 120 mg PO DAILY Patient's Own Medication [Ptom] 1 each PO DAILY 09/15/19 09:06 OCCULT BLOOD DIAGNOSTIC [OP] Routine 09/15/19 16:41 Echo Comp wo Cont [US] Urgent - Plan Plan:: This 68 year old female admitted with Afib RVR and supratherapeutic INR 1. Afib RVR: remains SR. Trended troponins negative. HR stable, continue Diltiazem. Likely secondary to electrolyte abnormalities. 2. Supratherapeutic INR: Hold Warfarin. INR 5.27 today. hgb 15 to 9 today, may be slightly dilutional, will repeat this afternoon. Does report black stools, obtain Occult. Protonix 40 mg IV BID for now. Recommend outpatient endoscopy when INR stable. Hx hematuria, had abdominal CT in February 2019, no renal tumors or bladder tumors noted. 3. COPD: Continue inhalers VTE prophylaxis: SCDs Dispo: 1-2 days
[2019-09-15] MEDS: FORMOTEROL FUM INH SCH (09:56)
[2019-09-15] MEDS: GLYCOPYRROLATE INH SCH (09:56)
[2019-09-15] MEDS: Ascorbic Acid 500 MG Tab PO SCH (09:58)
[2019-09-15 09:59] VITALS: PULSE 78
[2019-09-15] MEDS: Pantoprazole 40 MG in Sodium Chloride 0.9% 10 ML IV SCH (11:49)
[2019-09-15 14:25] VITALS: BP 118/65
--- NOTE | 2019-09-15 14:38 | PCM.DCSUM1 ---
Discharge Summary - Hospital Course Brief History: This 68 year old female with pmh of afib on chronic anticoagulation with Warfarin and [employer] presented to the ED today with complaints of not feeling well for the last few days and starting having significant palpitations and nausea and dizziness this morning. She reports this started a couple days ago and she has not felt well, not eating or eating as usual. She denies abdominal pain or diarrhea. Just nausea and no appetite. She reports she has been taking all her medications per usual. She denies fevers, chills, chest pain or shortness of breath. She reports her last INR was 3.2 in July and was due to be check 09/12 but she didn't feel well so she didn't come in. She denies overt bleeding no alf blood stools, but reports it is black in color. Some mild nose bleeds over the last couple days. She reports she smokes, no alcohol or recreational drug use. In the ED she was noted to be in questionable SVT, given adenosine 6mg and 12 mg with no change in HR. She then was given Diltiazem and HR improved to SR 80s. BP stable. She remained hemodynamically stable throughout. She denied chest pain. Labwork revealed hypokalemia, 2.8 and Hypomagnesemia 1.7. INR greater than 14.54. She was given Vitamin k 2.5 mg. She will be admitted for Supratherapeutic INR, Afib RVR. PCP , Dr Albrecht. [employer] Dr Rivera Diagnosis: Stroke: No - Discharge Data Discharge Date: 09/15/19 Discharge Disposition: Home, Self-Care 01 Condition: Good - Referral to Home Health Primary Care Physician: PCP None - Discharge Diagnosis/Problem(s) (1) Palpitations SNOMED Code(s): 38825541 ICD Code: R00.2 - PALPITATIONS Status: Acute Current Visit: Yes (2) Atrial fibrillation with RVR SNOMED Code(s): 652870915691156 ICD Code: I48.91 - UNSPECIFIED ATRIAL FIBRILLATION Status: Acute Priority : High Current Visit: No Problem Details: With RVR (3) Supratherapeutic INR SNOMED Code(s): 860766964 ICD Code: R79.1 - ABNORMAL COAGULATION PROFILE Status: Acute Current Visit: No (4) Smoker SNOMED Code(s): 11408504 ICD Code: F17.200 - NICOTINE DEPENDENCE, UNSPECIFIED, UNCOMPLICATED Status : Chronic Current Visit: No (5) Dehydration SNOMED Code(s): 72445525 ICD Code: E86.0 - DEHYDRATION Status: Acute Priority: High Current Visit: No (6) Nausea and vomiting SNOMED Code(s): 98446552 ICD Code: R11.2 - NAUSEA WITH VOMITING, UNSPECIFIED Status: Acute Priority: High Current Visit: No Qualifiers: Vomiting type: unspecified Vomiting Intractability: non-intractable Qualified Code(s): R11.2 - Nausea with vomiting, unspecified - Patient Summary/Data Consults: Consultations 09/14/19 11:02 Consult to Physician [CONS] Routine - Patient Instructions Diet: Heart Healthy Diet Activity: No Strenuous Activities Showering/Bathing: January Shower Notify Provider of: Fever, Increased Pain, Swelling and Redness, Drainage, Nausea and/or Vomiting Other/Special Instructions: Coagulation clinic on Thursday. If any bleeding is noticed, such as in urine or stools please return to ER for evaluation. - Discharge Plan *PRESCRIPTION DRUG MONITORING PROGRAM REVIEWED*: Not Applicable *COPY OF PRESCRIPTION DRUG MONITORING REPORT IN PATIENT DI: Not Applicable Prescriptions/Med Rec: Calcium Carbonate/Vitamin D3 [Caltrate-600 with Vit D Tab] 1 each PO DAILY #1 tablet Home Medications: Home Meds Multivitamin [Multivitamins] 1 tab PO DAILY 07/29/16 [History] Magnesium Oxide 400 mg PO BID #30 tablet 09/07/16 [Rx] Ascorbic Acid [Vitamin C] 1,000 mg PO BID 07/02/19 [History] Diltiazem HCl [Diltiazem 24Hr ER] 120 mg PO DAILY #30 cap.er.24h 07/02/19 [Rx] Glycopyrrolate/Formoterol Fum [Bevespi Aerosphere Inhaler] 2 puff INH BID [History] Calcium Carbonate/Vitamin D3 [Caltrate-600 with Vit D Tab] 1 each PO DAILY #1 tablet 09/15/19 [Rx] Warfarin Sodium 2.5 mg PO .TUE,WED,FRI,SAT,SUN #0 09/15/19 [Rx] Warfarin Sodium 5 mg PO .MON & THUR #0 09/15/19 [Rx] Oxygen Therapy Mode: Room Air Referrals: PCP,None [Primary Care Provider] - Jeovanny Albrecht MD [Physician] - - Discharge Summary/Plan Comment DC Time >30 min.: No Discharge Summary/Plan Comment: Admitting Diagnoses Dehydration Supratherapeutic INR Afib RVR Discharge Diagnoses: Dehydration Supratherapeutic INR Afib RVR Other PMH: COPD Tobacco abuse Elda was admitted secondary to Afib RVR secondary to dehydration and electrolyte abnormalities. Potassium and Magnesium replaced and she was given 2 l IVFs in ED and on the floor combined. She noted black stools, but hemoccult returned negative. She was given 2.5 mg Vitamin K in the ED today INR 5. 27. No active bleeding, she has noted in the past hematuria with elevated INRs, past CT abdomen scanning has been benign. I will set up outpatient referral to Urology as she is a smoker and may need further evaluation for hematuria. Hgb did drop to 9.6 today from 15, which is likely dilutional as no active bleeding is noted. She is eager to go home. Repeated HH today is 10.0. Hgb stable. She will be discharged home on current home medications. She will have follow up with Coagulation clinic on Thursday for INR check. She is to start taking Coumadin tomorrow 2.5 mg over the week and check on Thursday. She is to return to ED or clinic if concerns should arise overnight weekend. - Patient Data Vitals - Most Recent: Last Vital Signs Temp 97.5 F 09/15/19 12:00 Pulse 78 09/15/19 12:00 Resp 16 09/15/19 12:00 BP 118/65 09/15/19 12:00 Pulse Ox 94 L 09/15/19 12:00 Weight - Most Recent: 65.7 kg I&O - Last 24 hours: Intake & Output 09/14/19 09/15/19 09/15/19 22:59 06:59 14:59 Intake Total 640 400 Output Total 600 700 Balance 40 -300 Lab Results - Last 24 hrs: Laboratory Results - last 24 hr 09/14/19 09/14/19 09/15/19 Range/Units 14:16 19:43 01:40 WBC (4.0-11.0) K/uL RBC (4.30-5.90) M/uL Hgb (12.0-16.0) g/dL Hct (36.0-46.0) % MCV (80.0-98.0) fL MCH (27.0-32.0) pg MCHC (31.0-37.0) g/dL RDW Std Deviation (28.0-62.0) fl RDW Coeff of Nilay (11.0-15.0) % Plt Count (150-400) K/uL MPV (7.40-12.00) fL Neut % (Auto) (48.0-80.0) % Lymph % (Auto) (16.0-40.0) % Mingo % (Auto) (0.0-15.0) % Eos % (Auto) (0.0-7.0) % Baso % (Auto) (0.0-1.5) % Neut # (Auto) (1.4-5.7) K/uL Lymph # (Auto) (0.6-2.4) K/uL Mingo # (Auto) (0.0-0.8) K/uL Eos # (Auto) (0.0-0.7) K/uL Baso # (Auto) (0.0-0.1) K/uL INR Sodium (136-145) mmol/L Potassium 4.3 (3.5-5.1) mmol/L Chloride (98-107) mmol/L Carbon Dioxide (21.0-32.0) mmol/L BUN (7.0-18.0) mg/dL Creatinine (0.6-1.0) mg/dL Est Cr Clr Drug Dosing mL/min Estimated GFR (MDRD) ml/min Glucose (74-106) mg/dL Calcium (8.5-10.1) mg/dL Magnesium (1.8-2.4) mg/dL Troponin I < 0.050 < 0.050 (0.000-0.056) ng/mL 09/15/19 09/15/19 09/15/19 Range/Units 04:58 04:58 04:58 WBC 8.56 (4.0-11.0) K/uL RBC 3.26 L (4.30-5.90) M/uL Hgb 9.6 L (12.0-16.0) g/dL Hct 28.6 L (36.0-46.0) % MCV 87.7 (80.0-98.0) fL MCH 29.4 (27.0-32.0) pg MCHC 33.6 (31.0-37.0) g/dL RDW Std Deviation 52.3 (28.0-62.0) fl RDW Coeff of Nilay 17 H (11.0-15.0) % Plt Count 144 L (150-400) K/uL MPV 9.30 (7.40-12.00) fL Neut % (Auto) 60.4 (48.0-80.0) % Lymph % (Auto) 27.5 (16.0-40.0) % Mingo % (Auto) 7.7 (0.0-15.0) % Eos % (Auto) 3.9 (0.0-7.0) % Baso % (Auto) 0.5 (0.0-1.5) % Neut # (Auto) 5.2 (1.4-5.7) K/uL Lymph # (Auto) 2.4 (0.6-2.4) K/uL Mingo # (Auto) 0.7 (0.0-0.8) K/uL Eos # (Auto) 0.3 (0.0-0.7) K/uL Baso # (Auto) 0.0 (0.0-0.1) K/uL INR 5.27 Sodium 136 (136-145) mmol/L Potassium 4.2 (3.5-5.1) mmol/L Chloride 102 (98-107) mmol/L Carbon Dioxide 27.0 (21.0-32.0) mmol/L BUN 14 (7.0-18.0) mg/dL Creatinine 0.9 (0.6-1.0) mg/dL Est Cr Clr Drug Dosing 57.56 mL/min Estimated GFR (MDRD) > 60.0 ml/min Glucose 91 (74-106) mg/dL Calcium 8.1 L (8.5-10.1) mg/dL Magnesium (1.8-2.4) mg/dL Troponin I (0.000-0.056) ng/mL 09/15/19 09/15/19 Range/Units 04:58 14:00 WBC (4.0-11.0) K/uL RBC (4.30-5.90) M/uL Hgb 10.0 L (12.0-16.0) g/dL Hct 30.7 L (36.0-46.0) % MCV (80.0-98.0) fL MCH (27.0-32.0) pg MCHC (31.0-37.0) g/dL RDW Std Deviation (28.0-62.0) fl RDW Coeff of Nilay (11.0-15.0) % Plt Count (150-400) K/uL MPV (7.40-12.00) fL Neut % (Auto) (48.0-80.0) % Lymph % (Auto) (16.0-40.0) % Mingo % (Auto) (0.0-15.0) % Eos % (Auto) (0.0-7.0) % Baso % (Auto) (0.0-1.5) % Neut # (Auto) (1.4-5.7) K/uL Lymph # (Auto) (0.6-2.4) K/uL Mingo # (Auto) (0.0-0.8) K/uL Eos # (Auto) (0.0-0.7) K/uL Baso # (Auto) (0.0-0.1) K/uL INR Sodium (136-145) mmol/L Potassium (3.5-5.1) mmol/L Chloride (98-107) mmol/L Carbon Dioxide (21.0-32.0) mmol/L BUN (7.0-18.0) mg/dL Creatinine (0.6-1.0) mg/dL Est Cr Clr Drug Dosing mL/min Estimated GFR (MDRD) ml/min Glucose (74-106) mg/dL Calcium (8.5-10.1) mg/dL Magnesium 1.9 (1.8-2.4) mg/dL Troponin I (0.000-0.056) ng/mL NATHANIEL Results - Last 24 hrs: Microbiology 09/15/19 08:00 Stool Occult Blood (NATHANIEL) - Final Stool / Feces NEGATIVE OCCULT BLOOD REFERENCE RANGE: NEGATIVE Med Orders - Current: Current Medications Acetaminophen (Tylenol) 650 mg PO Q4H PRN PRN Reason: Pain (Mild 1-3)/fever Ascorbic Acid (Vitamin C) 1,000 mg PO BID [facility] Last Admin: 09/15/19 09:58 Dose: 1,000 mg Diltiazem HCl (Cardizem Cd) 120 mg PO DAILY [facility] Last Admin: 09/15/19 09:58 Dose: 120 mg Diltiazem HCl (Diltiazem) 10 mg IVPUSH Q3H PRN PRN Reason: Afib HR >120 sustained Pantoprazole Sodium 40 mg/ (Sodium Chloride) 10 mls @ 300 mls/hr IV Q12H [facility] Last Admin: 09/15/19 11:49 Dose: 300 mls/hr Ondansetron HCl (Zofran) 4 mg IVPUSH Q4H PRN PRN Reason: Nausea Glycopyrrolate/Formoterol Fum [ Bevespi Aerosphere Inhaler 2 each INH BID [facility] Last Admin: 09/15/19 09:56 Dose: 2 each Multivitamin [ (Multivitamins] 1 Tab) 1 each PO DAILY [facility] Last Admin: 09/15/19 09:58 Dose: Not Given Sodium Chloride (Saline Flush) 10 ml FLUSH ASDIRECTED PRN PRN Reason: Keep Vein Open Last Admin: 09/14/19 08:20 Dose: 10 ml Sodium Chloride (Saline Flush) 2.5 ml FLUSH ASDIRECTED PRN PRN Reason: Keep Vein Open Last Admin: 09/14/19 08:21 Dose: 2.5 ml Sodium Chloride (Normal Saline) 10 ml IV ASDIRECTED PRN PRN Reason: IV Use Last Admin: 09/14/19 08:21 Dose: 10 ml Discontinued Medications Adenosine (Adenocard) 6 mg IVPUSH NOW ONE Stop: 09/14/19 08:16 Last Admin: 09/14/19 08:18 Dose: 6 mg Adenosine (Adenocard) 12 mg IVPUSH NOW ONE Stop: 09/14/19 08:17 Last Admin: 09/14/19 08:18 Dose: 12 mg Diltiazem HCl (Diltiazem) Confirm Administered Dose 25 mg .ROUTE .STK-MED ONE Stop: 09/14/19 07:57 Last Admin: 09/14/19 08:20 Dose: Not Given Diltiazem HCl (Diltiazem) Confirm Administered Dose 25 mg .ROUTE .STK-MED ONE Stop: 09/14/19 08:03 Last Admin: 09/14/19 08:20 Dose: Not Given Diltiazem HCl (Diltiazem) 20 mg IVPUSH ONETIME ONE Stop: 09/14/19 08:17 Last Admin: 09/14/19 08:19 Dose: 20 mg Diltiazem HCl (Diltiazem) 20 mg IVPUSH ONETIME ONE Stop: 09/14/19 08:17 Last Admin: 09/14/19 08:20 Dose: 20 mg Diltiazem HCl (Cardizem Cd) 120 mg PO DAILY [facility] Last Admin: 09/14/19 12:22 Dose: Not Given Sodium Chloride (Normal Saline) 1,000 mls @ 1,000 mls/hr IV .BOLUS ONE Stop: 09/14/19 08:58 Last Admin: 09/14/19 08:19 Dose: 1,000 mls/hr Sodium Chloride (Normal Saline) 1,000 mls @ 999 mls/hr IV ASDIRECTED [facility] Last Admin: 09/14/19 08:19 Dose: 999 mls/hr Potassium Chloride 20 meq/ (Premix) 50 mls @ 25 mls/hr IV ONETIME ONE Stop: 09/14/19 10:50 Last Admin: 09/14/19 09:33 Dose: 25 mls/hr Magnesium Sulfate 2 gm/ Premix 50 mls @ 50 mls/hr IV ONETIME ONE Stop: 09/14/19 10:18 Last Admin: 09/14/19 11:47 Dose: 50 mls/hr Phytonadione 2.5 mg/ Sodium (Chloride) 50.25 mls @ 100 mls/hr IV NOW ONE Stop: 09/14/19 09:52 Last Admin: 09/14/19 09:32 Dose: Not Given Sodium Chloride (Normal Saline) 500 mls @ 999 mls/hr IV .BOLUS [facility] Last Admin: 09/14/19 16:17 Dose: 999 mls/hr Ondansetron HCl (Zofran) Confirm Administered Dose 4 mg .ROUTE .STK-MED ONE Stop: 09/14/19 07:51 Last Admin: 09/14/19 08:20 Dose: Not Given Ondansetron HCl (Zofran) 4 mg IVPUSH ONETIME ONE Stop: 09/14/19 08:22 Last Admin: 09/14/19 08:21 Dose: 4 mg Phytonadione (Mephyton) 2.5 mg PO ONETIME ONE Stop: 09/14/19 08:54 Last Admin: 09/14/19 09:33 Dose: 2.5 mg Phytonadione (Aquamephyton) 2.5 mg PO ONETIME ONE Stop: 09/14/19 09:16 Last Admin: 09/14/19 09:32 Dose: Not Given Potassium Chloride (Potassium Chloride) 40 meq PO ONETIME ONE Stop: 09/14/19 08:51 Last Admin: 09/14/19 09:32 Dose: 40 meq
--- NOTE | 2019-09-19 14:56 | CONS ---
DATE OF CONSULTATION: 09/14/2019 DATE OF : 1950 PRIMARY CARE PHYSICIAN: None PCP REASON FOR CONSULTATION: Atrial flutter. HISTORY OF PRESENT ILLNESS: This is a 68-year-old female with history of anxiety, COPD, and atrial flutter. She was admitted in the hospital back in February because of atrial flutter, but she converted to sinus rhythm on her own, and she was here at this time because of not feeling well, palpitation, nausea, vomiting. She was having the atrial flutter with RVR, heart rate of 140 to 150, and she was converted to sinus rhythm in the emergency room. However, because the INR was 14, she was kept in the hospital. Otherwise, she feels fine. No chest pain, no shortness of breath when she was converted to sinus rhythm. PAST MEDICAL HISTORY: Including atrial flutter, atrial fibrillation, carotid bruit, COPD, hypertension. ALLERGIES: Sulfa drug. HOME MEDICATIONS: Include diltiazem 120 mg once a day, Coumadin, and also she is on inhaler of Bevespi and Ventolin for COPD. FAMILY HISTORY: History of COPD, depression, ovarian cancer. SOCIAL HISTORY: Former smoker. No history of alcohol use. No drug use. REVIEW OF SYSTEMS: Except indicated in HPI, otherwise has been negative. PHYSICAL EXAMINATION: VITAL SIGNS: Initial blood pressure was 117/58, dropped down to 80 to 90 with initial heart rate of 170, but it was dropped down to 40 to 50; O2 saturation is 94%; temperature is 97.5. HEENT: Not pale. No jaundice. No JVD. HEART: Normal S1, S2. No murmur. She was converted to sinus rhythm already. EXTREMITIES: Legs, no edema. INVESTIGATION: EKG show atrial flutter with RVR. CBC showed WBC of 8, hemoglobin of 9.6, hematocrit of 28, platelet of 144,000. INR is 14. Sodium 133, potassium 4.2, chloride 102, bicarb 27, BUN 14, creatinine is 0.9. Troponin was negative. ASSESSMENT AND PLAN: This is a 68-year-old female with history of chronic obstructive pulmonary disease, hypertension, and paroxysmal atrial flutter. She presented with atrial flutter, rapid ventricular response, converted to sinus rhythm. She will be kept in the hospital because of supratherapeutic INR. Regarding her atrial flutter, recommended to have the atrial flutter ablation as an outpatient. I will refer her to [facility] in [place]. MOR / CHELE /[id number]
--- NOTE | 2019-09-19 16:31 | ECHO ---
The echocardiogram report can be seen in this patient's EMR (Electronic Medical Record) in the REPORTS section. The echocardiogram report has also been scanned into PACS and can be seen there as well. ARPITA
== END 2019-09-15 18:15 | disposition home or self-care (01) ==
LOC: MW.ED 07:36 → MW.MS 09:11 → UNDOADMOB 09:56
PROVIDERS: ADMIT Student in an Organized Health Care Education/Training Program; ATTEND Student in an Organized Health Care Education/Training Program
DX: I48.91 Unspecified atrial fibrillation (principal); J44.9 Chronic obstructive pulmonary disease, unspecified; E86.0 Dehydration; R79.1 Abnormal coagulation profile; R11.2 Nausea with vomiting, unspecified; F17.210 Nicotine dependence, cigarettes, uncomplicated; Z79.01 Long term (current) use of anticoagulants; Z88.2 Allergy status to sulfonamides
CPT/HCPCS: 36415; 71045; 80048; 80053; 81001; 82272; 82550; 83735; 83880; 84132; 84484; 85014; 85018; 85025; 85610; 93005; 93306; A9270; C9113; J0153; J2405; J3475; J3480; J3490; J7030; J7040; J7050

== ENCOUNTER 2020-05-19 03:48 | Emergency (ER) | payer MEDICAID, MEDICARE ==
[2020-05-19 04:44] VITALS: BP 122/53; PULSE 84
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
[2020-05-19] MEDS: Acetaminophen/HYDROcodone 325-5 MG Tab PO ONE ×2 (04:55→06:05)
--- NOTE | 2020-05-19 05:18 | CR ---
Indication: Fall Technique: Three views left hand Comparison: None Findings: Bones: Mildly displaced, intra-articular fracture of the distal radius. Mild volar apex angulation of the distal fracture fragment. There is also a linear fracture extending into the distal diaphysis of the radius, best seen on the oblique view. Joint spaces: Degenerative changes in the triscaphe and 1st CMC joint. Soft tissues: Unremarkable. Impression: Mildly displaced, intra-articular fracture of the distal radius. There is also a linear fracture extending just into the distal diaphysis of the radius. Dictated by Ana Lilia Hanks MD @ May 19 2020 5:14AM Signed by Dr. Ana Lilia Hanks @ May 19 2020 5:18AM
--- NOTE | 2020-05-19 05:54 | CR ---
Indication: Fall Technique: Frontal lateral views left forearm Comparison: Left wrist radiographs performed at the same time Findings: Bones: Osteopenia. Comminuted mildly displaced, intra-articular fracture of the distal radius is again identified. No additional fracture identified. Joint spaces: Degenerative changes in the triscaphe and 1st CMC joints. Soft tissues: Unremarkable. Impression: Distal radius fracture. No additional fracture identified. Dictated by Ana Lilia Hanks MD @ May 19 2020 5:49AM Signed by Dr. Ana Lilia Hanks @ May 19 2020 5:51AM
== END 2020-05-19 06:15 | disposition home or self-care (01) ==
LOC: MW.ED 03:48
DX: S52.572A Other intraarticular fracture of lower end of left radius, initial encounter for closed fracture (principal); I48.91 Unspecified atrial fibrillation; Z79.01 Long term (current) use of anticoagulants; Z79.899 Other long term (current) drug therapy; Z88.2 Allergy status to sulfonamides; W01.0XXA Fall on same level from slipping, tripping and stumbling without subsequent striking against object, initial encounter
CPT/HCPCS: 29125; 73090; 73130; 99283; A9270

== ENCOUNTER → 2020-05-25 | Day surgery (SDC) | payer MEDICARE, OTHER ==
[~2020-05-25] MED LIST: Acetaminophen 650 MG in Premix Bag 1 BAG IV ONE; HYDROmorphone 2 MG/ML Syringe IVPUSH ONE; HYDROmorphone 2 MG/ML Syringe ONE; Ketamine 500 mg/10 ML MDV ONE; Lactated Ringers 1,000 ML IV SCH; Lidocaine 1% 20 ML MDV ONE; Lidocaine 2% 5 ML SDV ONE; Midazolam 1 MG/ML 2 ML SDV ONE; Ondansetron 4 MG/2 ML SDV ONE; Propofol 200 MG/20 ML SDV ONE; ceFAZolin 2 GM in Premix Bag 1 BAG IV SCH; fentaNYL 100 MCG/2 ML SDV ONE
--- NOTE | 2020-05-25 11:15 | PCM.PREANE ---
Preanesthetic Assessment - Anesthesia/Transfusion/Family Hx Anesthesia History: Prior Anesthesia Without Reaction Family History of Anesthesia Reaction: No Transfusion History: Prior Transfusion Without Reaction - Review of Systems General: No Symptoms Cardiovascular: No Symptoms Gastrointestinal: No Symptoms Neurological: No Symptoms Other: Reports: None - Physical Assessment NPO Status Date: 05/24/20 Height: 5 ft 6 in Weight: 61.235 kg ASA Class: 3 Mental Status: Alert & Oriented x3 ROM/Head Extension: Full Lungs: Clear to Auscultation, Normal Respiratory Effort Cardiovascular: Irregular Rhythm - Allergies Allergies/Adverse Reactions: Allergies Allergy/AdvReac Type Severity Reaction Status Date / Time Sulfa (Sulfonamide Allergy Hives Verified 05/24/20 16:18 Antibiotics) - Blood Blood Available: No - Anesthesia Plan Pre-Op Medication Ordered: None - Acknowledgements Anesthesia Type Planned: KETAN Pt an Appropriate Candidate for the Planned Anesthesia: Yes Alternatives and Risks of Anesthesia Discussed w Pt/Guardian: Yes Pt/Guardian Understands and Agrees with Anesthesia Plan: Yes Additional Comments: PMH: copd- with hyperinflation on CXR, does not use MDIs, walks withour EDWARDS, no home O2,smokes 3ppd, afib- on coumadin, CKD3, htn, hx of hepatitis (she says "C", told to stop drinking- not treated for hep C, normal LFTs in February, PLAN: ketan block per surgeon request, supliment with propofol sedation/TIVA for periosteal analgesia PreAnesthesia Questionnaire HEENT History: Reports: Cataract Other HEENT History: wears glasses, has top denture and bottom partial Cardiovascular History: Reports: Afib, Arrhythmia Respiratory History: Reports: COPD Other Respiratory History: states she is "close to COPD" but has no shortness of breath, was prescribed inhalers but does not use them Gastrointestinal History: Reports: Hepatitis Other Gastrointestinal History: was told she had Hepatitis C but is not sure Genitourinary History: Reports: Other (See Below) Other Genitourinary History: frequent "kidney infections" as a child, had her "urinary tract stretched" and has not had symptoms since 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 Musculoskeletal History: Reports: None Neurological History: Reports: None Psychiatric History: Reports: Anxiety, Depression Endocrine/Metabolic History: Reports: None Hematologic History: Reports: Anticoagulation Therapy, Blood Transfusion(s) Immunologic History: Reports: None Oncologic (Cancer) History: Reports: None Dermatologic History: Reports: None Other Dermatologic History: hx of zimmer - Infectious Disease History Infectious Disease History: Reports: Hepatitis C - Past Surgical History Head Surgeries/Procedures: Reports: None HEENT Surgical History: Reports: Adenoidectomy, Cataract Surgery, Tonsillectomy GI Surgical History: Reports: Colonoscopy Musculoskeletal Surgical History: Reports: Arthroscopic Knee Dermatological Surgical History: Reports: Skin Graft - SUBSTANCE USE Smoking Status *Q: Current Every Day Smoker Tobacco Use Within Last Twelve Months: Cigarettes Recreational Drug Use History: Yes Recreational Drug Type: Reports: Marijuana/Hashish Recreational Drug Last Use: 05/23/20 - HOME MEDS Home Medications: Home Meds Multivitamin [Multivitamins] 1 tab PO DAILY 07/29/16 [History] Magnesium Oxide 400 mg PO BID #30 tablet 09/07/16 [Rx] Ascorbic Acid [Vitamin C] 1,000 mg PO BID 07/02/19 [History] Glycopyrrolate/Formoterol Fum [Bevespi Aerosphere Inhaler] 2 puff INH BID 07/02/19 [History] Calcium Carbonate/Vitamin D3 [Caltrate-600 with Vit D Tab] 1 each PO DAILY #1 tablet 09/15/19 [Rx] Albuterol [Ventolin HFA] 2 puff INH QID PRN 05/24/20 [History] Diltiazem HCl [Diltiazem 24Hr ER] 120 mg PO QAM 05/24/20 [History] Flecainide Acetate 100 mg PO BID 05/24/20 [History] Warfarin Sodium 5 mg PO DAILY 05/24/20 [History] - CURRENT (IN HOUSE) MEDS Current Meds: Current Medications Lactated Ringer's (Ringers, Lactated) 1,000 mls @ 100 mls/hr IV ASDIRECTED JASON Cefazolin Sodium/Dextrose 2 gm (/ Premix) 50 mls @ 100 mls/hr IV ONCALL JASON Discontinued Medications Fentanyl (Sublimaze) Confirm Administered Dose 100 mcg .ROUTE .STK-MED ONE Stop: 05/25/20 10:15 Hydromorphone HCl (Dilaudid) Confirm Administered Dose 2 mg .ROUTE .STK-MED ONE Stop: 05/25/20 10:15 Lidocaine (Xylocaine-Mpf 2%) Confirm Administered Dose 5 ml .ROUTE .STK-MED ONE Stop: 05/25/20 10:15 Midazolam HCl (Versed 1 Mg/Ml) Confirm Administered Dose 2 mg .ROUTE .STK-MED ONE Stop: 05/25/20 10:15 Ondansetron HCl (Zofran) Confirm Administered Dose 4 mg .ROUTE .STK-MED ONE Stop: 05/25/20 10:15 Propofol (Diprivan 20 Ml) Confirm Administered Dose 200 mg .ROUTE .STK-MED ONE Stop: 05/25/20 10:15
--- NOTE | 2020-05-25 14:06 | PCM.OPNOTE ---
- General Post-Op/Procedure Note Date of Surgery/Procedure: 05/25/20 Operative Procedure(s): Closed reduction and casting of left extra-articular distal radius fracture Findings: Left displaced, angulated, extra-articular distal radius fracture Pre Op Diagnosis: Left 2-part displaced, angulated, extra-articular distal radius fracture Post-Op Diagnosis: Left 2-part displaced, angulated, extra-articular distal radius fracture Anesthesia Technique: Moderate Sedation (Propofol), Regional Block (Molino block) Primary Surgeon: Jim Berg Oracle Etl Developer: Sonja Valadez Reason Oracle Etl Developer Was Necessary: Maintenance of fracture reduction Pathology: None EBL in mLs: 0 (2 cases of 0 blood loss today 1 110) Complications: None Condition: Good Free Text/Narrative:: Patient is a 69-year-old [id number] female who fell injuring her left wrist. She sustained a left 2 part, displaced, angulated, extra-articular distal radius fracture. She was seen in the emergency room and splinted, but no reduction was performed. I saw her in clinic in follow-up and given the displacement and angulation, I recommended close reduction of the fracture. Initially I had recommended percutaneous pinning, but given her INR > 4, I felt it was safest to simply do a closed reduction. The risks and benefits of surgery been discussed with the patient. All questions were answered. Patient elected to proceed with surgery. Patient was taken to the operating room. After adequate sedation and a Raquel block, patient remained in a supine position. A closed reduction maneuver was performed and repeated after C arm visualization. A short arm well-padded fiberglass cast was then applied and molded. C arm views in the cast showed near anatomic reduction with no intra-articular step-offs. Patient was accompanied to the recovery room in stable condition. Medications: Acetaminophen and hydrocodone Antibiotics not indicated for close procedure Venous thromboembolism prophylaxis not indicated for upper extremity fracture Restrictions: Nonweightbearing on her left upper extremity in a fiberglass cast for 6 weeks. Follow-up in 2 weeks for x-ray in the cast and then again in 6 weeks. At 6 weeks patient may be placed in a Velcro wrist bent and begin occupational therapy or stretching/mobilization exercises on her own. She should be nonweightbearing until 3 months postoperatively.
[2020-05-25 14:09] VITALS: PULSE 68
--- NOTE | 2020-05-25 14:23 | PCM.POSTAN ---
POST ANESTHESIA ASSESSMENT - MENTAL STATUS Mental Status: Alert, Oriented - VITAL SIGNS Vital Signs: Last Vital Signs Temp 36.6 C 05/25/20 14:00 Pulse 68 05/25/20 14:11 Resp 15 05/25/20 14:11 BP 133/68 05/25/20 14:11 Pulse Ox 96 05/25/20 14:11 - RESPIRATORY Respiratory Status: Respiratory Rate WNL, Airway Patent, O2 Saturation Stable - CARDIOVASCULAR CV Status: Pulse Rate WNL, Blood Pressure Stable - GASTROINTESTINAL GI Status: No Symptoms - PAIN Pain Score: 0 - POST OP HYDRATION Hydration Status: Adequate & Stable
--- NOTE | 2020-05-25 14:58 | CR ---
Left wrist: 2 fluoroscopic spot views were obtained of the left wrist utilizing C arm device. Comparison: No prior wrist study is available. Findings: Distal radial fracture is noted. Alignment is close to anatomic. Fiberglas cast is in place. Fluoroscopy time given is 6.3 seconds. Impression: 1. Procedural study as described above. Diagnostic code #2 This report was dictated in MDT
[2020-05-25 16:02] VITALS: BP 166/80
--- NOTE | 2020-05-25 16:33 | PCM48HPAN ---
Post Anesthesia Note - EVALUATION WITHIN 48HRS OF ANESTHETIC Vital Signs in Normal Range: Yes Patient Participated in Evaluation: Yes Respiratory Function Stable: Yes Airway Patent: Yes Cardiovascular Function Stable: Yes Hydration Status Stable: Yes Pain Control Satisfactory: Yes (Denies pain at rest, 3/10 with movement.) Nausea and Vomiting Control Satisfactory: Yes Mental Status Recovered: Yes Vital Signs: Last Vital Signs Temp 35.8 C L 05/25/20 14:20 Pulse 68 05/25/20 16:01 Resp 20 05/25/20 16:01 BP 166/80 H 05/25/20 16:01 Pulse Ox 93 L 05/25/20 16:01 - COMMENTS/OBSERVATIONS Free Text/Narrative:: Fully awake and alert, sitting up in bed chatting with RN. Reports adequate pain control.
== END | disposition home or self-care (01) ==
LOC: MW.SDS 10:27
PROVIDERS: ATTEND Orthopaedic Surgery
DX: S52.552A Other extraarticular fracture of lower end of left radius, initial encounter for closed fracture (principal); J44.9 Chronic obstructive pulmonary disease, unspecified; I48.91 Unspecified atrial fibrillation; F41.9 Anxiety disorder, unspecified; F32.9 Major depressive disorder, single episode, unspecified; E78.5 Hyperlipidemia, unspecified; E03.9 Hypothyroidism, unspecified; I48.92 Unspecified atrial flutter; I10 Essential (primary) hypertension; G47.30 Sleep apnea, unspecified; F17.210 Nicotine dependence, cigarettes, uncomplicated; Z01.812 Encounter for preprocedural laboratory examination; Z20.828 Contact with and (suspected) exposure to other viral communicable diseases; Z88.2 Allergy status to sulfonamides; Z79.899 Other long term (current) drug therapy; Z79.01 Long term (current) use of anticoagulants; X58.XXXA Exposure to other specified factors, initial encounter
CPT/HCPCS: 25605; 76000; J0131; J1170; J2001; J2250; J2405; J2704; J3010; J7120; U0002; 01820

== ENCOUNTER 2021-05-01 06:21 | Emergency (ER) | payer MEDICARE, MEDICAID ==
--- NOTE | 2021-05-01 06:47 | EDM.PDOC ---
<Yoav Lou - Last Filed: 05/01/21 06:44> ED HPI GENERAL MEDICAL PROBLEM - General Chief Complaint: Lower Extremity Injury/Pain Stated Complaint: LEG PAIN, A-FIB, SHORTNESS OF BREATH Time Seen by Provider: 05/01/21 06:37 - History of Present Illness INITIAL COMMENTS - FREE TEXT/NARRATIVE: 70-year-old female with a history of A. fib on flecainide, diltiazem and warfarin. Her INR last time it was checked was somewhat low so her warfarin dose was increased. Starting at 1030 last night patient developed spontaneous painful swelling of the right knee. Is currently moderate and worsens to severe with range of motion and ambulation. No fever otherwise feels well and without complaint. right lower leg Pain Score (Numeric/FACES): 8 - Related Data Allergies Allergy/AdvReac Type Severity Reaction Status Date / Time Sulfa (Sulfonamide Allergy Hives Verified 05/01/21 06:35 Antibiotics) Home Meds: Home Meds Multivitamin [Multivitamins] 1 tab PO DAILY 07/29/16 [History] Magnesium Oxide 400 mg PO BID #30 tablet 09/07/16 [Rx] Ascorbic Acid [Vitamin C] 1,000 mg PO BID 07/02/19 [History] Glycopyrrolate/Formoterol Fum [Bevespi Aerosphere Inhaler] 2 puff INH BID 07/02/19 [History] Calcium Carbonate/Vitamin D3 [Caltrate 600 Plus D3 Tablet] 1 each PO DAILY #1 tablet 09/15/19 [Rx] Albuterol [Ventolin HFA] 2 puff INH QID PRN 05/24/20 [History] Diltiazem HCl [Diltiazem 24Hr ER] 120 mg PO QAM 05/24/20 [History] Flecainide Acetate 100 mg PO BID 05/24/20 [History] Warfarin Sodium 3 mg PO DAILY 05/24/20 [History] Acetaminophen/HYDROcodone [[place] 325-5 MG] 1 tab PO Q6H PRN #20 tablet 05/25/20 [Rx] Past Medical History HEENT History: Reports: Cataract Other HEENT History: wears glasses, has top denture and bottom partial Cardiovascular History: Reports: Afib, Arrhythmia Respiratory History: Reports: COPD Other Respiratory History: states she is "close to COPD" but has no shortness of breath, was prescribed inhalers but does not use them Gastrointestinal History: Reports: Hepatitis Other Gastrointestinal History: was told she had Hepatitis C but is not sure Genitourinary History: Reports: UTI, Recurrent Other Genitourinary History: frequent "kidney infections" as a child, had her "urinary tract stretched" and has not had symptoms since [employer] History: Reports: None Musculoskeletal History: Reports: None Neurological History: Reports: None Psychiatric History: Reports: Anxiety, Depression Endocrine/Metabolic History: Reports: None Hematologic History: Reports: Anticoagulation Therapy, Blood Transfusion(s) Immunologic History: Reports: None Oncologic (Cancer) History: Reports: None Dermatologic History: Reports: Other (See Below) Other Dermatologic History: [place] - Infectious Disease History Infectious Disease History: Reports: Hepatitis C - Past Surgical History Head Surgeries/Procedures: Reports: None HEENT Surgical History: Reports: Adenoidectomy, Cataract Surgery, Tonsillectomy Cardiovascular Surgical History: Reports: None Respiratory Surgical History: Reports: None GI Surgical History: Reports: Colonoscopy Female Surgical History: Reports: None Endocrine Surgical History: Reports: None Neurological Surgical History: Reports: None Musculoskeletal Surgical History: Reports: Arthroscopic Knee Dermatological Surgical History: Reports: Skin Graft Social & Family History - Family History Family Medical History: No Pertinent Family History - Caffeine Use Caffeine Use: Reports: Tea - Recreational Drug Use Recreational Drug Use: Yes Drug Use in Last 12 Months: Yes Recreational Drug Type: Reports: Marijuana/Hashish Review of Systems - Review of Systems Review Of Systems: See Below Constitutional: Reports: No Symptoms Cardiovascular: Reports: No Symptoms GI/Abdominal: Reports: No Symptoms Musculoskeletal: Reports: Other (Per HPI) Skin: Reports: No Symptoms ED EXAM, GENERAL - Physical Exam Exam: See Below Free Text/Narrative:: General Appearance: No acute distress, appears comfortable Skin: No rash HEENT: Normocephalic/atraumatic, sclera anicteric, mucous membranes moist Neck: Normal range of motion Musculoskeletal: Right lower extremity neurovascularly intact her right knee is significantly swollen there is a large clinical joint effusion there is very minimal warmth but no erythema patient able to tolerate some active range of motion of the right knee but is not able to straighten it due to the size of the effusion. Neurologic: Awake, alert, no obvious deficits, moving all extremities Psychiatric: Appropriate, cooperative Departure - Departure Disposition: Home, Self-Care 01 Clinical Impression: Supratherapeutic INR, Hemarthrosis - Discharge Information Instructions: Knee Effusion Referrals: Jeovanny Albrecht MD [Primary Care Provider] - Forms: ED Department Discharge Additional Instructions: Your INR is elevated to 6.76. You should not take your wafarin for 48-hours and follow-up with the walk-in clinic on Thursday to repeat the INR (coag) level. If you cannot get into the walk-in clinic, please come back to the emergency department. Your knee is swollen, likely because of spontaneous bleeding in the joint. I did not drain the knee because your INR is very elevated, and it can be dangerous to do any procedures while the INR is very high because you can bleed, a lot. If your knee is still very swollen and painful by early next week, I'd suggest following up ideally with orthopedic clinic (information provided below) or if you cannot get in with them, the emergency department. Once your INR is lower and the risk of bleeding is less, it would be possible to drain the knee which will give you a lot of relief. Most ER physicians are comfortable doing this procedure, but I cannot guarantee that the emergency department would drain the knee whereas orthopedics are very comfortable with this procedure. The following information is given to patients seen in the emergency department who are being discharged to home. This information is to outline your options for follow-up care. We provide all patients seen in our emergency department with a follow-up referral. The need for follow-up, as well as the timing and circumstances, are variable depending upon the specifics of your emergency department visit. If you don't have a primary care physician on staff, we will provide you with a referral. We always advise you to contact your personal physician following an emergency department visit to inform them of the circumstance of the visit and for follow-up with them and/or the need for any referrals to a consulting specialist. The emergency department will also refer you to a specialist when appropriate. This referral assures that you have the opportunity for follow-up care with a specialist. All of these measure are taken in an effort to provide you with optimal care, which includes your follow-up. Under all circumstances we always encourage you to contact your private physician who remains a resource for coordinating your care. When calling for follow-up care, please make the office aware that this follow-up is from your recent emergency room visit. If for any reason you are refused follow-up, please contact the [facility] Emergency Department at and asked to speak to the emergency department charge nurse. Please follow up with your primary care physician. If you do not have a primary care physician, see below: [facility] [address], [place] [address] [facility] [address] [place] [address] [facility] - Pediatric Clinic [address] [place] [address] Sepsis Event Note (ED) - Evaluation Sepsis Screening Result: No Definite Risk - Assessment/Plan Assessment:: 70-year-old female presenting with signs and symptoms that are most consistent with spontaneous hemarthrosis of the right knee. INR value is pending as is x- ray. Septic arthritis considered but the knee is not severely warm is severely erythematous. I think spontaneous hemarthrosis is more likely. INR and x-rays pending. Patient signed out to daytime provider pending this. These results as well as final disposition and decision on drainage signed out to a.m. provider. <Brenton Hayes - Last Filed: 05/01/21 07:31> Course - Vital Signs Last Recorded V/S: Last Vital Signs Temp 97.1 F 05/01/21 07:11 Pulse 76 05/01/21 07:11 Resp 18 05/01/21 07:11 BP 145/74 H 05/01/21 07:11 Pulse Ox 96 05/01/21 07:11 - Orders/Labs/Meds Labs: Laboratory Tests 05/01/21 Range/Units 06:51 INR 6.76 Meds: Medications Discontinued Medications Generic Name Dose Route Start Last Admin Trade Name Freq PRN Reason Stop Dose Admin Acetaminophen 650 mg 05/01/21 06:48 05/01/21 07:10 Acetaminophen 325 Mg Tab PO 05/01/21 06:49 650 mg NOW ONE Administration - Re-Assessments/Exams Free Text/Narrative Re-Assessment/Exam: 05/01/21 07:18 Patient's INR is supratherapeutic at 6. There is no large joint effusion on x- ray imaging. Will recommend to hold warfarin for 48 hours and follow-up with PMD for repeat INR check. Will Massimo bandage the knee. 05/01/21 07:26 Spoke with patient regarding plan. She is able to f/u with walk-in clinic on Thursday for repeat INR check. I told her that if the knee is still bothering her after INR normalizes to either come back to ER or more ideally f/u with orthopedics for consideration of arthrocentesis. I'd prefer to wait until INR is <3 before performing this procedure. Patient understands and agrees with plan. Will d/c with short course of percocet for pain. Departure - Departure Time of Disposition: 07:27 Condition: Good Sepsis Event Note (ED) - Focused Exam Vital Signs: Vital Signs Temp Pulse Resp BP Pulse Ox 05/01/21 07:11 97.1 F 76 18 145/74 H 96 05/01/21 06:35 96.8 F L 81 18 138/79 97
[2021-05-01] MEDS ORDERED: Acetaminophen 325 MG Tab PO ONE (06:48)
--- NOTE | 2021-05-01 07:11 | CR ---
Indication: Pain and swelling Technique: Right knee 3 views Comparison: None Findings: Bones: Alignment is normal. No fractures or bone lesions. Joint spaces: Moderate osteoarthritis in the knee joint. Patellofemoral joint space is within normal limits. A joint effusion is present. Soft tissues: Unremarkable. Dictated by Pk Wilks MD @ 05/01/2021 7:10:[address] Pk Wilks @ May 01 2021 7:10AM
[2021-05-01 08:02] VITALS: BP 143/77; PULSE 92
== END 2021-05-01 08:00 | disposition home or self-care (01) ==
LOC: MW.ED 06:21
DX: S83.91XA Sprain of unspecified site of right knee, initial encounter (principal); R79.1 Abnormal coagulation profile; I48.91 Unspecified atrial fibrillation; J44.9 Chronic obstructive pulmonary disease, unspecified; Z79.01 Long term (current) use of anticoagulants; Z88.2 Allergy status to sulfonamides; X58.XXXA Exposure to other specified factors, initial encounter
CPT/HCPCS: 36415; 73562; 85610; 99284; A9270

== ENCOUNTER 2022-03-31 00:02 | Emergency (ER) | payer MEDICARE, MEDICAID ==
[2022-03-31 01:06] LABS: BLOOD UREA NITROGEN,BUN 5 mg/dL (7.0-18.0); CHLORIDE,CL 104 mmol/L (98-107); ESTIMATED GFR 80 mL/min (>60); GLUCOSE RANDOM 87 mg/dL (74-106); POTASSIUM,K 3.6 mmol/L (3.5-5.1); SODIUM,NA 143 mmol/L (136-145)
[2022-03-31] MEDS ORDERED: Albuterol/Ipratropium 3.0-0.5 MG/3 ML Neb Soln NEB ONE (01:38)
[2022-03-31 02:12] VITALS: BP 124/70; PULSE 88
== END 2022-03-31 02:35 | disposition home or self-care (01) ==
LOC: MW.ED 00:02
DX: R00.2 Palpitations (principal); F10.129 Alcohol abuse with intoxication, unspecified; R79.1 Abnormal coagulation profile; I48.91 Unspecified atrial fibrillation; J44.9 Chronic obstructive pulmonary disease, unspecified; Z79.01 Long term (current) use of anticoagulants; Z88.2 Allergy status to sulfonamides; Z20.822 Contact with and (suspected) exposure to COVID-19; Y90.8 Blood alcohol level of 240 mg/100 ml or more
CPT/HCPCS: 36415; 71045; 80053; 80307; 81003; 83735; 84443; 84484; 85025; 85610; 93005; 94640; 99285; U0002; 93010; J7620-GY

== ENCOUNTER 2024-06-06 13:16 | Emergency (ER) | payer MEDICARE, MEDICAID ==
[2024-06-06 13:40] VITALS: BP 109/60; PULSE 65
[2024-06-06 13:56] LABS: BASOPHILS ABSOLUTE AUTO 0.06 K/uL (0.00-0.20); BASOPHILS PERCENT AUTO 0.7 % (0.0-1.0); EOSINOPHILS ABSOLUTE AUTO 0.35 K/uL (0.00-0.45); EOSINOPHILS PERCENT AUTO 4.2 % (0.0-6.0); HEMATOCRIT 39.8 % (37.0-47.0); HEMOGLOBIN 13.2 g/dL (12.0-16.0); IMMATURE GRAN ABSOLUTE AUTO 0.02 K/uL (0.00-0.05); IMMATURE GRAN PERCENT AUTO 0.2 % (0.0-0.4); LYMPHOCYTES ABSOLUTE AUTO 2.46 K/uL (1.00-4.80); LYMPHOCYTES PERCENT AUTO 29.4 % (24.0-44.0); MEAN CORPUSCULAR HEMOGLOBIN 29.6 pg (28.0-32.0); MEAN CORPUSCULAR HGB CONC 33.2 g/dL (32.0-36.0); MEAN CORPUSCULAR VOLUME 89.2 fL (83.0-99.0); MEAN PLATELET VOLUME 9.4 fL (9.4-12.3); MONOCYTES PERCENT AUTO 8.4 % (0.0-8.0); NEUTROPHILS ABSOLUTE AUTO 4.78 K/uL (1.80-7.70); NEUTROPHILS PERCENT AUTO 57.1 % (41.0-71.0); PLATELET COUNT,PLT 303 K/uL (150-400); RED BLOOD CELL COUNT 4.46 M/uL (4.10-5.30); WHITE BLOOD CELL COUNT,WBC 8.37 K/uL (3.9-11.3)
[2024-06-06] MEDS: Cephalexin 500 MG Cap PO ONE (13:59)
[2024-06-06] MEDS: diphenhydrAMINE 50 MG Cap PO ONE (13:59)
[2024-06-06] MEDS: predniSONE 20 MG Tab PO STA (14:00)
[2024-06-06 14:16] LABS: A/G RATIO 0.9 (0.9-1.6); ALBUMIN 3.4 g/dL (3.4-5.0); BILIRUBIN TOTAL 0.5 mg/dL (0.2-1.0); CALCIUM 8.7 mg/dL (8.5-10.1); CARBON DIOXIDE,CO2 27.8 mmol/L (21.0-32.0); CREATININE 0.8 mg/dL (0.6-1.0); POTASSIUM,K 3.7 mmol/L (3.5-5.1)
== END 2024-06-06 14:50 | disposition home or self-care (01) ==
LOC: MW.ED 13:16
DX: L03.114 Cellulitis of left upper limb (principal); I10 Essential (primary) hypertension; J44.9 Chronic obstructive pulmonary disease, unspecified; F17.210 Nicotine dependence, cigarettes, uncomplicated; Z79.899 Other long term (current) drug therapy; Z88.2 Allergy status to sulfonamides; Z75.8 Other problems related to medical facilities and other health care
CPT/HCPCS: 36415; 80053; 85025; 99283; A9270

== ENCOUNTER 2024-09-19 08:20 | Day surgery (SDC) | payer MEDICARE, MEDICAID ==
[2024-09-19] MEDS: Lactated Ringers 1,000 ML IV SCH (09:06)
[2024-09-19] MEDS ORDERED: propofoL 500 MG/50 ML 50 ML ONE (09:52)
[2024-09-19] MEDS ORDERED: Lactated Ringers 1,000 ML IV SCH (10:45)
[2024-09-19 12:40] VITALS: BP 157/70; PULSE 77
== END 2024-09-19 11:00 | disposition home or self-care (01) ==
LOC: MW.SDS 08:20
PROVIDERS: ATTEND Surgery
DX: Z12.11 Encounter for screening for malignant neoplasm of colon (principal); R19.5 Other fecal abnormalities; K57.30 Diverticulosis of large intestine without perforation or abscess without bleeding; I25.10 Atherosclerotic heart disease of native coronary artery without angina pectoris; I10 Essential (primary) hypertension; I48.91 Unspecified atrial fibrillation; J44.9 Chronic obstructive pulmonary disease, unspecified; E03.9 Hypothyroidism, unspecified; Z79.01 Long term (current) use of anticoagulants; Z79.890 Hormone replacement therapy; Z79.899 Other long term (current) drug therapy
CPT/HCPCS: G0121; J2704; J7120

== ENCOUNTER 2025-06-08 02:34 | Inpatient (IN) | payer MEDICARE ==
[2025-06-08 02:53] LABS: BASOPHILS ABSOLUTE AUTO 0.08 K/uL (0.00-0.20); BASOPHILS PERCENT AUTO 0.6 % (0.0-1.0); EOSINOPHILS ABSOLUTE AUTO 0.09 K/uL (0.00-0.45); EOSINOPHILS PERCENT AUTO 0.7 % (0.0-6.0); IMMATURE GRAN ABSOLUTE AUTO 0.04 K/uL (0.00-0.05); IMMATURE GRAN PERCENT AUTO 0.3 % (0.0-0.4); LYMPHOCYTES ABSOLUTE AUTO 1.60 K/uL (1.00-4.80); LYMPHOCYTES PERCENT AUTO 12.9 % (24.0-44.0); MEAN PLATELET VOLUME 9.5 fL (9.4-12.3); MONOCYTES ABSOLUTE AUTO 0.77 K/uL (0.00-0.80); MONOCYTES PERCENT AUTO 6.2 % (0.0-8.0); NEUTROPHILS ABSOLUTE AUTO 9.87 K/uL (1.80-7.70); NEUTROPHILS PERCENT AUTO 79.3 % (41.0-71.0); NRBC ABSOLUTE 0.00 K/uL (0.00-0.02); NRBC PERCENT 0.0 /100WBC (0.0-0.2); PLATELET COUNT,PLT 254 K/uL (150-400); RED BLOOD CELL COUNT 3.65 M/uL (4.10-5.30); WHITE BLOOD CELL COUNT,WBC 12.45 K/uL (3.9-11.3)
[2025-06-08 02:54] LABS: GLUCOSE,URINE NEGATIVE (NEGATIVE); OCCULT BLOOD,URINE LARGE (NEGATIVE)
[2025-06-08 02:56] LABS: APPEARANCE,URINE HAZY
[2025-06-08] MEDS: Ondansetron 4 MG/2 ML SDV IVPUSH ONE (02:59)
[2025-06-08] MEDS: Lactated Ringers 1,000 ML IV ONE (02:59)
[2025-06-08 03:00] LABS: EPITHELIAL CELLS,URINE OCCASIONAL (NONE-FEW)
[2025-06-08 03:09] LABS: A/G RATIO 1.0 (0.9-1.6); ALANINE AMINOTRANSFERASE,ALT 24.0 IU/L (14-63); ASPARTATE AMNIOTRANSFERASE,AST 29.0 IU/L (15-37); BILIRUBIN TOTAL 0.9 mg/dL (0.2-1.0); BLOOD UREA NITROGEN,BUN 16.0 mg/dL (7.0-18.0); CARBON DIOXIDE,CO2 23.2 mmol/L (21.0-32.0); CHLORIDE,CL 97.0 mmol/L (98-107); CREATININE 1.3 mg/dL (0.6-1.0); EST CRCL DRUG DOSING (CG) 35.2 mL/min; GLUCOSE RANDOM 192.0 mg/dL (74-106); POTASSIUM,K 4.1 mmol/L (3.5-5.1); PROTEIN TOTAL,TP 6.7 g/dL (6.4-8.2); SODIUM,NA 136.0 mmol/L (136-145)
[2025-06-08 03:12] LABS: ESTIMATED GFR 44.0 mL/min (>60)
[2025-06-08] MEDS: fentaNYL 50 MCG/ML SDV IVPUSH ONE (03:19)
[2025-06-08 03:26] LABS: LACTIC ACID 2.6 mmol/L (0.4-2.0)
[2025-06-08 03:40] LABS: INR 6.96 (0.86-1.11)
[2025-06-08] MEDS: Iopamidol 755 MG/ML 500 ML Multipack Bottle IVPUSH STA (04:19)
[2025-06-08] MEDS: Iopamidol 755 Mg/ML 100 ML Bottle IVPUSH STA (04:25)
[2025-06-08] MEDS: Factor IX Complex Human 500 UNIT VIAL IV ONE (05:10)
[2025-06-08 06:52] LABS: INR 1.14 (0.86-1.11)
[2025-06-08] MEDS: Diltiazem 120 MG Cap.CD PO SCH (09:29)
[2025-06-08] MEDS: Cholecalciferol (Vitamin D3) 25 MCG Tab PO SCH (09:30)
[2025-06-08] MEDS: Lactated Ringers 1,000 ML IV SCH (10:00)
[2025-06-08] MEDS ORDERED: Sodium Chloride 0.9% 2.5 ML Syringe FLUSH PRN (12:17)
[2025-06-08] MEDS ORDERED: Sodium Chloride 0.9% 10 ML Syringe FLUSH PRN (12:17)
[2025-06-09 05:25] LABS: BASOPHILS ABSOLUTE AUTO 0.06 K/uL (0.00-0.20); BASOPHILS PERCENT AUTO 0.6 % (0.0-1.0); EOSINOPHILS ABSOLUTE AUTO 0.24 K/uL (0.00-0.45); EOSINOPHILS PERCENT AUTO 2.4 % (0.0-6.0); IMMATURE GRAN ABSOLUTE AUTO 0.03 K/uL (0.00-0.05); IMMATURE GRAN PERCENT AUTO 0.3 % (0.0-0.4); LYMPHOCYTES ABSOLUTE AUTO 1.70 K/uL (1.00-4.80); LYMPHOCYTES PERCENT AUTO 17.3 % (24.0-44.0); MEAN PLATELET VOLUME 9.9 fL (9.4-12.3); MONOCYTES ABSOLUTE AUTO 0.79 K/uL (0.00-0.80); MONOCYTES PERCENT AUTO 8.0 % (0.0-8.0); NEUTROPHILS ABSOLUTE AUTO 7.02 K/uL (1.80-7.70); NEUTROPHILS PERCENT AUTO 71.4 % (41.0-71.0); NRBC ABSOLUTE 0.00 K/uL (0.00-0.02); NRBC PERCENT 0.0 /100WBC (0.0-0.2); PLATELET COUNT,PLT 174 K/uL (150-400); RED BLOOD CELL COUNT 2.67 M/uL (4.10-5.30); WHITE BLOOD CELL COUNT,WBC 9.84 K/uL (3.9-11.3)
[2025-06-09 06:27] LABS: A/G RATIO 0.9 (0.9-1.6); ALANINE AMINOTRANSFERASE,ALT 21.0 IU/L (14-63); ASPARTATE AMNIOTRANSFERASE,AST 31.0 IU/L (15-37); BILIRUBIN TOTAL 0.6 mg/dL (0.2-1.0); BLOOD UREA NITROGEN,BUN 14.0 mg/dL (7.0-18.0); CARBON DIOXIDE,CO2 28.4 mmol/L (21.0-32.0); CHLORIDE,CL 98.0 mmol/L (98-107); CREATININE 0.7 mg/dL (0.6-1.0); EST CRCL DRUG DOSING (CG) 62.73 mL/min; GLUCOSE RANDOM 111.0 mg/dL (74-106); PHOSPHORUS 2.9 mg/dL (2.6-4.7); POTASSIUM,K 4.1 mmol/L (3.5-5.1); PROTEIN TOTAL,TP 5.8 g/dL (6.4-8.2); SODIUM,NA 135.0 mmol/L (136-145)
[2025-06-09 06:35] LABS: ESTIMATED GFR 92.0 mL/min (>60)
[2025-06-09 15:26] VITALS: BP 115/57; PULSE 76
== END 2025-06-09 15:15 | disposition home or self-care (01) | DRG 556 ==
LOC: MW.ED 02:34 → MW.MS 05:19
PROVIDERS: ADMIT Internal Medicine; ATTEND Internal Medicine
DX: M79.81 Nontraumatic hematoma of soft tissue (principal); N17.9 Acute kidney failure, unspecified; I48.91 Unspecified atrial fibrillation; H54.7 Unspecified visual loss; I25.10 Atherosclerotic heart disease of native coronary artery without angina pectoris; I10 Essential (primary) hypertension; J44.9 Chronic obstructive pulmonary disease, unspecified; G47.30 Sleep apnea, unspecified; K58.9 Irritable bowel syndrome, unspecified; F41.9 Anxiety disorder, unspecified; F32.A Depression, unspecified; E03.9 Hypothyroidism, unspecified; F17.200 Nicotine dependence, unspecified, uncomplicated; E87.8 Other disorders of electrolyte and fluid balance, not elsewhere classified; I95.9 Hypotension, unspecified; E83.42 Hypomagnesemia; Z90.89 Acquired absence of other organs; Z98.49 Cataract extraction status, unspecified eye; Z88.1 Allergy status to other antibiotic agents; Z79.899 Other long term (current) drug therapy; Z79.890 Hormone replacement therapy; Z79.01 Long term (current) use of anticoagulants; Z98.890 Other specified postprocedural states
CPT/HCPCS: 36415; 71045; 71045-26; 74177; 74177-26; 80053; 81001; 83605; 83735; 84100; 85014; 85018; 85025; 85610; 96361; 96374; 96375; 97161-GP; 97530-GP; 99284; 99285-25; A9270-GY; J2405; J3010; J3430; J7120; J7168; Q9967